=== PATIENT | male | born 1950 | race Caucasian/White ===

== ENCOUNTER 2019-04-24 13:00 | Outpatient (RCR) | payer MEDICARE, MEDICAID, SELFPAY ==
[2019-04-24 14:30] VITALS: BP 141/69; PULSE 60; RESP 20; O2SAT 96
[2019-04-24 15:44] VITALS: BP 141/69; RESP 60; O2SAT 96
== END 2019-07-23 23:59 | disposition home or self-care (01) ==
DX: Z98.61 Coronary angioplasty status (principal); I25.2 Old myocardial infarction
CPT/HCPCS: 93798

== ENCOUNTER 2019-08-11 09:56 | Outpatient (RCR) | payer MEDICARE, MEDICAID, SELFPAY | END 2019-09-29 12:00 | disposition home or self-care (01) | DX: Z95.5 Presence of coronary angioplasty implant and graft (principal) | CPT/HCPCS: 93798 ==

== ENCOUNTER 2020-01-04 13:11 | Outpatient (RCR) | payer MEDICARE, MEDICAID, SELFPAY ==
[2020-01-04 13:30] VITALS: BP 164/87; PULSE 63; RESP 16; O2SAT 98; BMI 36.8
--- NOTE | 2020-04-08 14:00 | PCCPR ---
PT LAST RECORDED REHAB SESSION 03/25/20. PT WAS HAVING PAIN IN LEFT FOOT/TOE, LOW GRADE TEMP, NAUSEA/VOMITING. ENCOURAGED TO CALL PRIMARY MD. PT SAW DR. PARTIDA ON 04/03/20 AND WAS DIRECTED TO WEIGH TANK OPERATOR THE FOLLOWING DAY. ON 04/04/20 PT LEFT MESSAGE THAT HE DID NOT THINK HE WOULD BE ABLE TO FINISH REHAB. ATTEMPTED TO CONTACT PATIENT SEVERAL TIMES. FINALLY, ON 04/08/20, ASSUMING THE PROBABILITY OF HOSPITAL ADMISSION, CONTACTED [facility] TO INQUIRE ABOUT ADMISSION, WAS CONNECTED TO PATIENTS ROOM. SPOKE TO PATIENT, STATES WAS ADMITTED THE DAY HE SAW THE WEIGH TANK OPERATOR FOR GANGRENOUS TOE AND SCHEDULED AMPUTATION THIS Wednesday04/12/20. PT COMPLETED 31 OF 36 SESSIONS.
== END 2020-04-08 15:00 | disposition home or self-care (01) ==
DX: Z98.61 Coronary angioplasty status (principal)
CPT/HCPCS: 93798

== ENCOUNTER 2020-04-27 10:54 | Emergency (ER) | payer MEDICARE, MEDICAID, SELFPAY ==
[2020-04-27] VITALS (32 sets, daily range): BP systolic 106–175; BP diastolic 53–100; PULSE 75–91; RESP 18; TEMP 36.2; O2SAT 93–100
--- NOTE | ~2020-04-27 | CT_ITS ---
EXAMINATION: CT abdomen pelvis wo con DATE: 04/27/2020 12:24 INDICATION: Hematemesis TECHNIQUE: Computed tomography (CT) of the abdomen and pelvis was performed without intravenous contr ast. Automated exposure control and iterative reconstruction technique were employed. The dose-length product was 1152.86 mGy-cm. COMPARISON: None FINDINGS: Lung bases are clear. Heart size is normal. No pericardial or pleural effusion. 3-lead cardiac pacema ker with lead tips at the radiocarpal appendage, near the apex of the right ventricle and in a lu ry vein overlying the lateral wall of the left ventricle having traversed the coronary sinus. 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 Small sliding-type h iatal hernia. Small calcified gallstone in the dependent aspect of the normal-appearing gallbladder. Liver and bila teral adrenal glands are normal. Splenic desiccation consistent with old granulomatous disease. Mild fatty atrophy of the pancreas. 1 cm low-attenuation right renal cyst. 2-3 mm nonobstructing stone at the interpolar region of the left kidney. Additional tiny calcifications at the bilateral renal margie are more likely to represent atherosclerotic calcifications than additional renal stones. No ureteral stones or hydronephrosis. Bladder is normal. A few calcifications in the minimally enlarged prostate . There are few scattered colonic diverticula without adjacent inflammatory change to suggest diverti culitis. Small bowel and appendix are normal. No free intraperitoneal gas or fluid. There is extensiv e calcified atherosclerosis of the aorta and many of the other arteries. No pathologically enlarged a bdominal or pelvic lymphadenopathy. Small sclerotic lesion at the anterior margin of the left greater trochanter with pattern of calcific lesion suggesting an enchondroma with chondroid matrix. Minimal to mild scattered degenerative skeletal changes. IMPRESSION: 1. Small sliding-type hiatal hernia. 2. Cholelithiasis. 3. Nonobstructing 2-3 mm left renal stone. Reviewed, dictated and finalized at location A. [employer]
--- NOTE | 2020-04-27 10:57 | ED.NAVMDI ---
HPI - Nausea/Vomiting/Diarrhea General Chief complaint: Nausea/Vomiting/Diarrhea Stated complaint: ambulance Time Seen by Provider: 04/27/20 10:57 Source: patient and EMS Mode of arrival: EMS Limitations: no limitations History of Present Illness HPI Narrative: Patient states that he began having some mild nausea vomiting 2 days ago. Last night he had continuous vomiting overnight. At 1 point vomiting so hard that he had fecal incontinence. He does not think he saw any black tarry stool. He denies any fever chills. He denies any diarrhea. He thinks he sees blood in his vomit. MD elicited complaint: nausea and vomiting Onset (ago): day(s) (2) Description of vomiting: bilious and blood-streaked Associated nausea: Yes Location of pain: diffuse (Sore from vomiting) Severity: mild Quality: aching Exacerbating factors: eating Relieving factors: none Associated symptoms: weakness and fecal incontinence (once last night during emesis) Related Data Home Medications Medication Instructions Recorded Confirmed amlodipine 10 mg PO DAILY 03/27/19 04/27/20 atorvastatin 80 mg PO DAILY 03/27/19 04/27/20 clonidine HCl 0.3 mg PO DAILY 03/27/19 04/27/20 hydralazine 75 mg PO QID 03/27/19 04/27/20 hydrochlorothiazide 25 mg PO DAILY 03/27/19 04/27/20 insulin aspart U-100 [Novolog See Rx Instructions .ROUTE .COMPLEX 03/27/19 04/27/20 Flexpen U-100 Insulin] insulin glargine [Basaglar KwikPen 30 unit SUBCUT HS 03/27/19 04/27/20 U-100 Insulin] lisinopril 40 mg PO DAILY 03/27/19 04/27/20 magnesium oxide 400 mg PO DAILY 03/27/19 04/27/20 metoprolol tartrate 50 mg PO BID 03/27/19 04/27/20 nitroglycerin 0.4 mg SUBLINGUAL DIRECTED 03/27/19 04/27/20 ticagrelor [Brilinta] 90 mg PO DAILY 03/27/19 04/27/20 empagliflozin [Jardiance] 10 mg PO DAILY 04/27/20 04/27/20 famotidine 20 mg PO BID 04/27/20 04/27/20 gabapentin 300 mg PO BID 04/27/20 04/27/20 hydrocodone-acetaminophen 1 tablet PO PRN PRN 04/27/20 04/27/20 isosorbide mononitrate 30 mg PO DAILY 04/27/20 04/27/20 metoprolol tartrate 100 mg PO BID 04/27/20 04/27/20 Allergies Allergy/AdvReac Type Severity Reaction Status Date / Time amoxicillin [From Augmentin] Allergy Rash Verified 01/05/20 10:58 clavulanic acid Allergy Rash Verified 01/05/20 10:58 [From Augmentin] metformin Allergy Other Verified 01/05/20 10:58 Review of Systems Constitutional: Constitutional: Denies chills, Denies fever(s) and Reports weakness Eyes: Eyes: Reports no additional eye complaints ENT: Reports system reviewed and no additional complaints, except as documented Cardiovascular: Cardiovascular: Reports no additional cardiovascular complaints Respiratory: Respiratory: Reports no additional respiratory complaints Gastrointestinal: Gastrointestinal: Reports as per HPI Genitourinary: Genitourinary: Reports no additional male genitourinary complaints Musculoskeletal: Musculoskeletal: Reports no additional musculoskeletal complaints Neurologic: Reports system reviewed and no additional complaints, except as documented Psychiatric: Psychiatric: Reports no additional psychiatric complaints Hematologic/Lymphatic: Hematologic/Lymphatic: Reports no additional hematologic/lymphatic complaints [facility] Past Medical History Medical History (Updated 04/27/20 @ 13:38 by Kash Willis MD) Aortic valve disease CAD (coronary artery disease) Heart disease Hypertension IDDM (insulin dependent diabetes mellitus) Pacemaker 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
[2020-04-27] MEDS: ONDANSETRON INJ 4 MG/2 ML VIAL IV PUSH (11:16)
[2020-04-27 11:25] LABS: Basophils Absolute Auto 0.04 K/mm3 (0.00-0.10); Basophils Percent Auto 0.3 % (0.0-1.0); Eosinophils Absolute Auto 0.04 K/mm3 (0.02-0.50); Eosinophils Percent Auto 0.3 % (1.0-6.0); Hemoglobin 14.9 g/dL (12.4-15.3); Immature Granulocyte Absolute 0.08 K/mm3 (0.00-0.00); Immature Granulocyte Percent A 0.5 % (0.0-0.0); Immature Platelet Fraction Pct 0.6 % (1.0-7.0); Lymphocytes Absolute Auto 0.72 K/mm3 (1.10-4.50); Lymphocytes Percent Auto 4.8 % (18.0-42.0); Mean Corpuscular HGB Conc 33.9 g/dL (32.0-36.0); Mean Corpuscular Hemoglobin 29.9 pg (27.0-31.0); Mean Corpuscular Volume 88.4 fL (78.0-102.0); Mean Platelet Volume 10.6 fl (8.7-11.0); Monocytes Absolute Auto 0.68 K/mm3 (0.10-0.90); Monocytes Percent Auto 4.5 % (2.0-11.0); Neutrophils Absolute Auto 13.6 K/mm3 (1.7-7.2); Neutrophils Percent Auto 89.6 % (50.0-70.0); Platelet Count Result 571 K/mm3 (150-420); Red Blood Count 4.98 M/mm3 (4.70-6.10); Red Cell Distribution Width 16.8 % (11.6-14.4); White Blood Count 15.1 K/mm3 (4.8-10.8)
[2020-04-27 11:27] LABS: Gastric Negative Control Negative; Gastric Positive Control Positive; Occult Blood Gastric Fluid Positive; pH Gastric Fluid 1 (1-8)
--- NOTE | 2020-04-27 11:52 | PC.NURSE ---
Pt given urinal for urine sample, pt states he is unable to provide at this time. Pt reports nausea is better.
[2020-04-27 12:01] LABS: Alanine Aminotransferase 142 U/L (16-63); Albumin Level 3.2 g/dL (3.4-5.0); Alkaline Phosphatase 185 U/L (46-116); Anion Gap 23 mmol/L (8-16); Aspartate Amino Transferase 59 U/L (15-37); Bilirubin,Total 0.6 mg/dL (0.00-1.00); Blood Urea Nitrogen 55 mg/dL (7-18); Calcium 8.4 mg/dL (8.5-10.1); Carbon Dioxide 18 mmol/L (21-32); Chloride 95 mmol/L (98-108); Estimated CRCL calculation 36 ml/min; Estimated Glomerular Filt Rate 29; Glucose 297 mg/dL (70-99); Lipase 44 U/L (73-393); Osmolality Calculated 308 mOsm/kg (285-295); Potassium 3.9 mmol/L (3.5-5.1); Sodium 136 mmol/L (136-145); Total Protein 7.9 g/dL (6.4-8.2)
[2020-04-27 12:02] LABS: CRP 2.8 mg/dL (0.0-0.9)
[2020-04-27] MEDS: METOCLOPRAMIDE HCL INJ 10 MG/2 ML VIAL IV PUSH (12:43)
[2020-04-27 12:53] LABS: Occult Blood Negative (Negative)
[2020-04-27] MEDS: PANTOPRAZOLE SODIUM IV 40 MG VIAL IV PUSH (13:14)
[2020-04-27 13:27] LABS: Add Urine Microscopic? YES; Appearance Urine Clear (Clear); Bilirubin Urine Negative (Negative); Blood Urine Negative (Negative); Color Urine Yellow (Yellow); Glucose Urine UA 3+ (Negative); Ketones Urine Trace (Negative); Leukocyte Esterase Ur Negative LEU/UL (Negative); Nitrate Urine Negative (Negative); Protein Urine 2+ (Negative); Specific Grav Ur >= 1.030 (1.010-1.020); Urobilinogen Urine 0.2 mg/dL (0.2-1.0)
--- NOTE | 2020-04-27 13:31 | PC.NURSE ---
[facility] contacted for possible transfer per pts request.
[2020-04-27 13:34] LABS: Bacteria Urine 1+ /hpf; Mucus Urine Few /lpf; RBC Urine 0-2 /hpf (0-2); Squamous Epithelial Cell Urine Occasional /hpf (Few); WBC Urine 0-3 /hpf (0-3)
--- NOTE | 2020-04-27 14:24 | PC.NURSE ---
Pt ambulatory to bathroom without assist.
--- NOTE | 2020-04-27 14:26 | PC.NURSE ---
[facility] returned call and states they do not have icu beds available and that they will not be able to accept this pt. edp requesting to speak with hospitalist, awaiting return call.
--- NOTE | 2020-04-27 15:29 | PC.NURSE ---
AWAITING RETURN CALL FROM HOSPITALIST AT [facility].
[2020-04-27] MEDS: SODIUM CHLORIDE 0.9% IV 1,000 ML 100 ML IV CONT (16:11)
--- NOTE | 2020-04-27 17:30 | PC.NURSE ---
CONTINUE TO AWAIT BED ASSIGNMENT AT [facility], PT SITTING ON STRETCHER COMFORTABLY, NO CHANGE IN PT STATUS, NO COMPLAINTS AT THIS TIME.
--- NOTE | 2020-04-27 18:28 | PC.NURSE ---
PT RESTING COMFORTABLY ON STRETCHER, PT MADE AWARE OF BED ASSIGNMENT AT [facility], NO REQUESTS AT THIS TIME. [facility] CONTACTED FOR TRANSFER.
== END 2020-04-27 19:00 | disposition short-term general hospital (02) ==
PROVIDERS: Emergency Provider Emergency Medicine
DX: K27.4 Chronic or unspecified peptic ulcer, site unspecified, with hemorrhage (principal)
CPT/HCPCS: 36415; 74176; 80053; 81001; 82271; 82272; 83690; 83986; 85025; 85055; 86140; 96361; 96374; 96375; 99285; C9113; J2405; J2765; J7030

== ENCOUNTER 2020-07-16 21:30 | Emergency (ER) | payer MEDICARE, MEDICAID, SELFPAY ==
--- NOTE | ~2020-07-16 | CT_ITS ---
EXAMINATION: CTA chest PE protocol DATE: 07/16/2020 23:15 CDT INDICATION: Chest pain, hypoxia and shortness of breath. TECHNIQUE: Computed tomographic angiography (CTA) of the chest was performed with 100 mL Omnipaque-35 0 intravenous contrast. The dose-length product was 1179.16 mGy-cm. Maximum intensity projection 3D-r econstructions of the aorta and other arteries were constructed by the technologist on a separate wor kstation. Automated exposure control and iterative reconstruction technique were employed. COMPARISON: Chest dated 07/16/2020. FINDINGS: Study is technically adequate without evidence for pulmonary embolism. Evaluation of the pe ripheral lower lobe pulmonary arteries limited by motion artifact. There are small pleural effusions. Cardiomegaly. There is atherosclerosis of the aorta and coronary arteries. Status post median sterno petra for CABG. There are patchy groundglass opacities in both lungs most confluent in the lower lobes . No endobronchial lesions. Mild thoracic spondylosis. IMPRESSION: 1. No evidence for pulmonary embolism. 2: Patchy groundglass opacification, most confluent in the lower lobes. Differential diagnosis inclu sav edema and pneumonia. 3: Small pleural effusions. 4: Cardiomegaly. Reviewed, dictated and finalized at location A. IMPRESSION: 1. No evidence for pulmonary embolism. 2: Patchy groundglass opacification, most confluent in the lower lobes. Differ ential diagnosis includes edema and pneumonia. 3: Small pleural effusions. 4: Cardiomegaly.
--- NOTE | ~2020-07-16 | XR_ITS ---
XR chest 1V portable 07/16/2020 22:08 Indication: Acute onset of chest pain and shortness of breath Procedure: AP portable chest Comparison: No prior studies for comparison. Findings: Status post median sternotomy for CABG. Cardiomegaly. Mild interstitial edema. No significa nt pleural effusion or pneumothorax. No acute osseous abnormality. Impression: 1: Cardiomegaly with mild interstitial edema. Reviewed, dictated and finalized at location A. Impression: 1: Cardiomegaly with mild interstitial edema.
--- NOTE | 2020-07-16 21:41 | ECG_ITS ---
Measurements Intervals [place] Rate: 81 P: 121 IA: 244 QRS: -27 QRSD: 154 T: 9 QT: 426 QTc: 497 Interpretive Statements ELECTRONIC ATRIAL PACEMAKER WITH INHIBITION ELECTRONIC VENTRICULAR PACEMAKER BASELINE ARTIFACT- I, II, III, AVR, AVL, AVF, V1-V6 NO FURTHER INTERPRETATION IS POSSIBLE ATYPICAL ECG Electronically Signed On 07-17-2020 7:19:47 CDT by Kenny Lomax D.O.
--- NOTE | 2020-07-16 21:46 | ED.CHESTPAIN ---
HPI - Chest Pain General Chief Complaint: Chest Pain Stated Complaint: AMB Time Seen by Provider: 07/16/20 21:41 Source: patient Mode of arrival: EMS Limitations: no limitations History of Present Illness HPI narrative: 69-year-old man with a history of coronary artery disease status post CABG and stents, hypertension, dyslipidemia and diabetes comes in today by EMS complaining of chest pressure that started approximately 1/2 hour prior to calling 911. He states that shortness of breath started at the same time period was found to have sats in the 60s by EMS which improved to the low 90s with 15 L non-rebreather. He was given 1 sublingual nitro which improved his symptoms somewhat and he took 3 baby aspirin before EMS arrived. Related Data Home Medications Medication Instructions Recorded Confirmed atorvastatin 80 mg PO DAILY 03/27/19 07/16/20 clonidine HCl 0.2 mg PO BID 03/27/19 07/16/20 hydrochlorothiazide 25 mg PO DAILY 03/27/19 07/16/20 insulin aspart U-100 [Novolog See Rx Instructions .ROUTE .COMPLEX 03/27/19 07/16/20 Flexpen U-100 Insulin] insulin glargine [Basaglar KwikPen 30 unit SUBCUT HS 03/27/19 07/16/20 U-100 Insulin] lisinopril 40 mg PO DAILY 03/27/19 07/16/20 nitroglycerin 0.4 mg SUBLINGUAL DIRECTED 03/27/19 07/16/20 ticagrelor [Brilinta] 90 mg PO DAILY 03/27/19 07/16/20 empagliflozin [Jardiance] 10 mg PO DAILY 04/27/20 07/16/20 isosorbide mononitrate 30 mg PO DAILY 04/27/20 07/16/20 metoprolol tartrate 100 mg PO BID 04/27/20 07/16/20 denosumab [Prolia] 60 mg SUBCUT [id number] 07/16/20 07/16/20 Allergies Allergy/AdvReac Type Severity Reaction Status Date / Time amoxicillin [From Augmentin] Allergy Rash Verified 07/16/20 22:28 clavulanic acid Allergy Rash Verified 07/16/20 22:28 [From Augmentin] metformin Allergy Other Verified 07/16/20 22:28 Review of Systems Constitutional: Constitutional: Reports fatigue, Reports fever(s) and Reports weakness Eyes: Eyes: Denies change in vision and Denies photophobia ENT: Denies nasal congestion and Denies sore throat Cardiovascular: Cardiovascular: Reports chest pain and Denies radiating jaw, neck or arm pain Respiratory: Respiratory: Denies cough, Reports dyspnea and Denies wheezing Gastrointestinal: Gastrointestinal: Denies abdominal pain, Denies diarrhea, Denies nausea and Denies vomiting Musculoskeletal: Musculoskeletal: Denies arthralgias and Denies joint swelling Integumentary/Breasts: Skin/Breast: Denies pruritus, Denies erythema and Denies rash Neurologic: Denies vertigo, Denies dizziness and Denies syncope Hematologic/Lymphatic: Hematologic/Lymphatic: Denies easy bleeding and Denies easy bruising Allergic/Immunologic: Allergic/Immunologic: Denies lip swelling and Denies throat swelling PMFSH Past Medical History Medical History Aortic valve disease CAD (coronary artery disease) Heart disease Hypertension IDDM (insulin dependent diabetes mellitus) Pacemaker 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 Surgical History Surgical History H/O left inguinal hernia repair H/O parathyroidectomy History of aortic valve repair History of coronary artery stent placement S/P CABG x 6 Family History Family History Mother Hypertension Father Heart disease Social History Social History Smoking status: Former smoker Tobacco type: pipe Second hand tobacco smoke exposure: Yes (Parents) Substance use: never Gender identity (if verbalized by the patient): Male Exam Const: General: alert and ill appearing acutely Nutritional Appearance: obese Orientation/consciousness: patient oriented x3 Limitations: no limitations Other: Moderate to severe acute distress. Anxiou
[2020-07-16] MEDS: ASPIRIN 81 MG CHEWABLE TABLET PO (21:48)
[2020-07-16] MEDS: MORPHINE SULFATE (*CRX) 2 MG/ML INJ IV PUSH (21:48)
[2020-07-16] MEDS: ONDANSETRON INJ 4 MG/2 ML VIAL IV PUSH (21:49)
[2020-07-16] MEDS: NITROGLYCERIN SL 0.4 MG TABLET SUBLINGUAL (21:50)
[2020-07-16] MEDS: NITROGLYCERIN SL 0.4 MG TABLET (21:55)
[2020-07-16 22:00] LABS: Base Excess ABG -8.1 mmol/L (0-2); Oxygen Content ABG 16.7 %vol (16.0-22.0); Oxygen Saturation ABG 95.4 % (95-97); Oxyhemoglobin 92.6 % (94-100); PCO2 ABG 38.9 mmHg (35-45); PO2 ABG 84.3 mmHg (75-85); Total Hemoglobin 12.8 g/dL; pH ABG 7.28 (7.35-7.45)
[2020-07-16 22:03] LABS: Basophils Absolute Auto 0.09 K/mm3 (0.00-0.10); Basophils Percent Auto 0.7 % (0.0-1.0); Eosinophils Absolute Auto 0.44 K/mm3 (0.02-0.50); Eosinophils Percent Auto 3.3 % (1.0-6.0); Hematocrit 37.9 % (37.0-46.0); Hemoglobin 12.1 g/dL (12.4-15.3); Immature Granulocyte Absolute 0.08 K/mm3 (0.00-0.00); Immature Granulocyte Percent A 0.6 % (0.0-0.0); Lymphocytes Absolute Auto 1.25 K/mm3 (1.10-4.50); Lymphocytes Percent Auto 9.5 % (18.0-42.0); Mean Corpuscular HGB Conc 31.9 g/dL (32.0-36.0); Mean Corpuscular Volume 87.7 fL (78.0-102.0); Mean Platelet Volume 9.2 fl (8.7-11.0); Monocytes Absolute Auto 1.37 K/mm3 (0.10-0.90); Monocytes Percent Auto 10.4 % (2.0-11.0); Neutrophils Absolute Auto 9.9 K/mm3 (1.7-7.2); Neutrophils Percent Auto 75.5 % (50.0-70.0); Platelet Count Result 437 K/mm3 (150-420); Red Blood Count 4.32 M/mm3 (4.70-6.10); Red Cell Distribution Width 17.2 % (11.6-14.4); White Blood Count 13.2 K/mm3 (4.8-10.8)
[2020-07-16 22:05] LABS: Modified Allen's Test Pass; Site Drawn LEFT RADIAL
[2020-07-16 22:06] LABS: Device NON-REBREATHER MASK
--- NOTE | 2020-07-16 22:09 | PC.NURSE ---
2150 b/p 194/81 nitro #1 given pain 11/05 2154 b/p 177/86 nitro #2 given pain 07/06 2199 b/p 177/67 nitro #3 given pain 05/08
[2020-07-16 22:11] VITALS: BP 194/81; PULSE 71; RESP 36; TEMP 37.3; O2SAT 93
[2020-07-16 22:19] VITALS: BP 164/61; PULSE 75; RESP 28; TEMP 37.3; O2SAT 97
[2020-07-16 22:19] LABS: INR 1.1; Partial Thromboplastin Time 24.5 SEC (23.90-30.70); Prothrombin Time 11.3 Seconds (9.50-12.10)
[2020-07-16 22:21] VITALS: O2SAT 97
[2020-07-16 22:22] VITALS: PULSE 75
[2020-07-16 22:24] LABS: Lactic Acid Reflex 2.7 mmol/L (0.4-2.0)
[2020-07-16 22:26] LABS: Alanine Aminotransferase 17 U/L (16-63); Alkaline Phosphatase 104 U/L (46-116); Anion Gap 15 mmol/L (8-16); Aspartate Amino Transferase 16 U/L (15-37); Bilirubin,Total 0.2 mg/dL (0.00-1.00); Blood Urea Nitrogen 37 mg/dL (7-18); Calcium 9.2 mg/dL (8.5-10.1); Carbon Dioxide 21 mmol/L (21-32); Chloride 99 mmol/L (98-108); Estimated CRCL calculation 36 ml/min; Estimated Glomerular Filt Rate 31; Glucose 185 mg/dL (70-99); NT Pro B Type Natriuretic Pept 4509; Osmolality Calculated 293 mOsm/kg (285-295); Potassium 3.8 mmol/L (3.5-5.1); Sodium 135 mmol/L (136-145); Total Protein 7.6 g/dL (6.4-8.2); Troponin I 39.3 ng/L (0.00-60.4)
[2020-07-16 22:28] LABS: D Dimer 2.21 mg/L (0.19-0.50)
[2020-07-16 22:48] VITALS: BP 185/57; PULSE 68; RESP 24; O2SAT 99
[2020-07-16 23:17] LABS: Influenza A QL RT-PCR Negative (Negative); Influenza B QL RT-PCR Negative (Negative); SARS-CoV-2 RNA PCR Negative (Negative)
[2020-07-16 23:27] VITALS: BP 170/61; PULSE 66; RESP 20; O2SAT 98
[2020-07-17] MEDS: FUROSEMIDE INJ 100 MG/10 ML VIAL 80 MG IV PUSH (00:10)
[2020-07-17 01:04] LABS: Reflex Lactic Acid Yes or No Add Lactic
[2020-07-17 01:08] VITALS: BP 186/66; PULSE 67; RESP 20; O2SAT 97
[2020-07-17 01:33] LABS: Troponin I 236.4 ng/L (0.00-60.4)
--- NOTE | 2020-07-18 12:13 | PC.NURSE ---
pt went to [facility] per pt request states his treasury specialist and cardiac surgeon are at [facility]
== END 2020-07-17 01:11 | disposition short-term general hospital (02) ==
PROVIDERS: Emergency Provider Emergency Medicine
DX: R07.9 Chest pain, unspecified (principal); J18.9 Pneumonia, unspecified organism; I50.9 Heart failure, unspecified; N18.9 Chronic kidney disease, unspecified; Z20.822 Contact with and (suspected) exposure to COVID-19; I25.10 Atherosclerotic heart disease of native coronary artery without angina pectoris; I10 Essential (primary) hypertension; E11.9 Type 2 diabetes mellitus without complications; Z87.891 Personal history of nicotine dependence
CPT/HCPCS: 36415; 36600; 71045; 71275; 80053; 82805; 83605; 83880; 84484; 85025; 85380; 85610; 85730; 87040; 87502; 93005; 96365; 96375; 99285; A9270; C9803; J0696; J1940; J2270; J2405; Q9967; U0003; U0005

== ENCOUNTER 2020-08-02 10:57 | Inpatient (IN) | payer MEDICARE, MEDICAID, SELFPAY ==
[2020-08-02] VITALS (7 sets, daily range): BP systolic 124–149; BP diastolic 53–73; PULSE 59–80; RESP 14–20; TEMP 36.2–37.7; O2SAT 92–96; BMI 33.1
--- NOTE | ~2020-08-02 | XR_ITS ---
EXAMINATION: XR chest 2V DATE: 08/02/2020 12:08 INDICATION: Fever TECHNIQUE: PA and lateral views of the chest are obtained. COMPARISON: 07/16/2020 FINDINGS: There is mild atelectasis of the lung bases. There is no pleural effusion or pneumothorax. Cardiomegaly is noted. There are changes of prior cardiac surgery. Surgical clips are noted in the ri ght upper mediastinum. A triple lead cardiac pacemaker of the left chest wall ends with leads in expe cted locations. There is mild thoracic spondylosis. IMPRESSION: 1. Mild atelectasis of the lung bases. Reviewed, dictated and finalized at location A.
--- NOTE | ~2020-08-02 | XR_ITS ---
XR chest 2V 08/04/2020 07:55 Indication: Fever Procedure: 2 view chest Comparison: 09/22/2018 Findings: Status post median sternotomy for CABG. Pacemaker leads are present. There is a prosthetic aortic valve. There is an coronary artery stent. There is bibasilar and bilateral perihilar interstit ial infiltrates. No significant effusion or pneumothorax. Impression: 1: Subtle bilateral perihilar and bibasilar interstitial infiltrates which may represent mild edema o r pneumonia. Reviewed, dictated and finalized at location A. Impression: 1: Subtle bilateral perihilar and bibasilar interstitial infiltrates which may represent mild edema or pneumonia.
[2020-08-02 11:56] LABS: Basophils Absolute Auto 0.04 K/mm3 (0.00-0.10); Basophils Percent Auto 0.7 % (0.0-1.0); Eosinophils Absolute Auto 0.21 K/mm3 (0.02-0.50); Eosinophils Percent Auto 3.6 % (1.0-6.0); Hematocrit 32.2 % (37.0-46.0); Hemoglobin 10.1 g/dL (12.4-15.3); Immature Granulocyte Absolute 0.02 K/mm3 (0.00-0.00); Immature Granulocyte Percent A 0.3 % (0.0-0.0); Lymphocytes Absolute Auto 0.74 K/mm3 (1.10-4.50); Lymphocytes Percent Auto 12.8 % (18.0-42.0); Mean Corpuscular HGB Conc 31.4 g/dL (32.0-36.0); Mean Corpuscular Hemoglobin 26.9 pg (27.0-31.0); Mean Corpuscular Volume 85.9 fL (78.0-102.0); Mean Platelet Volume 8.6 fl (8.7-11.0); Monocytes Absolute Auto 0.67 K/mm3 (0.10-0.90); Monocytes Percent Auto 11.6 % (2.0-11.0); Neutrophils Absolute Auto 4.1 K/mm3 (1.7-7.2); Platelet Count Result 362 K/mm3 (150-420); Red Blood Count 3.75 M/mm3 (4.70-6.10); Red Cell Distribution Width 18.1 % (11.6-14.4); White Blood Count 5.8 K/mm3 (4.8-10.8)
--- NOTE | 2020-08-02 11:59 | ED.SKABFB ---
HPI - Skin/Abscess/Foreign Bdy General Source: patient Mode of arrival: ambulatory Limitations: no limitations History of Present Illness HPI narrative: Johnie is a 69 yr old alert, bright gentleman, with a long history of DM. He has had his 2nd and 3rd toe removed from his right foot. This has a chronic wound there. At the same time that he had his last toe removed in April, he had a vascular bypass done on the right leg to try and improve his blood flow to his right foot. He was recently treated at [facility] for a chest infection and discharged yesterday. He was seen today by the home health nurse and she found he had a temperature of 100. She thought the right foot had what looked like cellulitis on it, and thought he ought to be seen and evaluated because she felt he had a cellulitis. MD complaint: other (cellulitis) Onset (ago): day(s) Location: R foot (cellulitis, and wound) Severity: moderate Severity scale (1-10): 6 Quality: burning Pain Consistency: constant Relieving factors: none Exacerbating factors: none Context: none Associated symptoms: denies other symptoms Related Data Home Medications Medication Instructions Recorded Confirmed atorvastatin 80 mg PO DAILY 03/27/19 08/02/20 clonidine HCl 0.2 mg PO BID 03/27/19 08/02/20 insulin aspart U-100 [Novolog See Rx Instructions .ROUTE .COMPLEX 03/27/19 08/02/20 Flexpen U-100 Insulin] insulin glargine [Basaglar KwikPen 30 unit SUBCUT HS 03/27/19 08/02/20 U-100 Insulin] nitroglycerin 0.4 mg SUBLINGUAL DIRECTED 03/27/19 08/02/20 ticagrelor [Brilinta] 90 mg PO DAILY 03/27/19 08/02/20 empagliflozin [Jardiance] 10 mg PO DAILY 04/27/20 08/02/20 isosorbide mononitrate 30 mg PO DAILY 04/27/20 08/02/20 denosumab [Prolia] 60 mg SUBCUT [id number] 07/16/20 08/02/20 hydralazine 50 mg PO TID 08/02/20 08/02/20 nifedipine 60 mg PO DAILY 08/02/20 08/02/20 Allergies Allergy/AdvReac Type Severity Reaction Status Date / Time amoxicillin [From Augmentin] Allergy Rash Verified 07/16/20 22:28 clavulanic acid Allergy Rash Verified 07/16/20 22:28 [From Augmentin] metformin Allergy Other Verified 07/16/20 22:28 Review of Systems Constitutional: Constitutional: Reports no additional constitutional complaints Eyes: Eyes: Reports no additional eye complaints ENT: Reports system reviewed and no additional complaints, except as documented Cardiovascular: Cardiovascular: Reports no additional cardiovascular complaints Respiratory: Respiratory: Reports no additional respiratory complaints Gastrointestinal: Gastrointestinal: Reports no additional gastrointestinal complaints Genitourinary: Genitourinary: Reports no additional male genitourinary complaints Musculoskeletal: Musculoskeletal: Reports no additional musculoskeletal complaints Integumentary/Breasts: Skin/Breast: Reports system reviewed and no additional complaints, except as docu Neurologic: Reports system reviewed and no additional complaints, except as documented Psychiatric: Psychiatric: Reports no additional psychiatric complaints Endocrine: Endocrine: Reports no additional endocrine complaints Hematologic/Lymphatic: Hematologic/Lymphatic: Reports no additional hematologic/lymphatic complaints Allergic/Immunologic: Allergic/Immunologic: Reports no additional allergic/immunologic complaints PMFSH Past Medical History Medical History Aortic valve disease CAD (coronary artery disease) Heart disease Hypertension IDDM (insulin dependent diabetes mellitus) Pacemaker 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 Surgical History Surgical History H/O left inguinal hernia repair H/O parathyroidectomy History of aortic valve repair History of coronary artery stent placement S/P CABG x 6 Family History Family History Mother Harriet
[2020-08-02 12:08] LABS: Alanine Aminotransferase 19 U/L (16-63); Albumin Level 2.9 g/dL (3.4-5.0); Alkaline Phosphatase 84 U/L (46-116); Anion Gap 11 mmol/L (8-16); Aspartate Amino Transferase < 10 U/L (15-37); Bilirubin,Total 0.3 mg/dL (0.00-1.00); Blood Urea Nitrogen 30 mg/dL (7-18); Calcium 7.8 mg/dL (8.5-10.1); Carbon Dioxide 25 mmol/L (21-32); Chloride 101 mmol/L (98-108); Estimated CRCL calculation 48 ml/min; Estimated Glomerular Filt Rate 44; Glucose 140 mg/dL (70-99); Osmolality Calculated 292 mOsm/kg (285-295); Potassium 3.7 mmol/L (3.5-5.1); Sodium 137 mmol/L (136-145); Total Protein 6.9 g/dL (6.4-8.2)
[2020-08-02 12:13] LABS: Lactic Acid Reflex 1.3 mmol/L (0.4-2.0)
--- NOTE | 2020-08-02 12:35 | PC.NURSE ---
1209 rn spoke with sujata garcia rn. obs room request. room 209 provided. registration notified
--- NOTE | 2020-08-02 13:02 | PHAR ---
DR DONALDSON INITIALLY WANTED PT ON ZOSYN FOR POTENTIAL CELLULITIS, ALONG W/VANC, BUT DUE TO AUGMENTIN ALLERGY WANTS TO CHANGE PT TO ANCEF 1GM Q8H. TLS
--- NOTE | 2020-08-02 13:23 | PM.IMHP ---
H&P: HPI History of Present Illness Date/Time: 08/02/20 13:23 this is a 69-year-old gentleman that was sent to our ED due to a temperature of 100 by his wound care nurse. 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 According to patient yesterday he went to the wound clinic while in transit to the wound clinic he experienced dizziness and was instructed to go to the ED. once he went to the ED patient noted that he was discharged without any diagnosis. his nurse visited him today and reported a temperature of 100 and instructed patient to come to our ED for IV antibiotic treatment. Patient notes that he did not feel any change other than the dizziness that he experienced before visiting his wound care clinic. He also noted that the wound care nurse said that his amputation site was erythematous. Patient WBCs 5.8, hemoglobin 10.1, hematocrit 32.2, platelets 362, sodium 137, potassium 3.7, BUN 30, creatinine 1.57, glucose 140, lactic acid 1.3, chest x-ray Mild atelectasis of the lung bases. Patient being admitted for cellulitis to his right foot. The patient denies SOB, CP, palpitation, extremity numbness, lightheadedness, dizziness, constipation, diarrhea, chills, or fever. Chief Complaint: Febrile Review of Systems Review of Systems: Narrative: A 14 organ system Review of Systems was performed and pertinent positives included in the HPI, otherwise remaining ROS is negative. 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 Surgical History Surgical History H/O left inguinal hernia repair H/O parathyroidectomy History of aortic valve repair History of coronary artery stent placement S/P CABG x 6 Family History Family History (Updated 08/02/20 @ 13:12 by Iman Panchal RN) Mother Hypertension Father Heart disease Mitral valve replaced Sibling Heart disease Sibling Heart disease Sibling Heart disease Sibling Heart disease Social History Social History Smoking status: Former smoker Tobacco type: cigars Second hand tobacco smoke exposure: Yes (Parents) Alcohol intake: former Drinks per week: 30 Substance use: former Substance use type: marijuana Gender identity (if verbalized by the patient): Male Spiritual care concerns: No Meds Home Medications and Allergies Home Medications Medication Instructions Recorded Confirmed Type atorvastatin 80 mg PO DAILY 03/27/19 08/02/20 History clonidine HCl 0.2 mg PO BID 03/27/19 08/02/20 History insulin aspart U-100 [Novolog See Rx Instructions .ROUTE .COMPLEX 03/27/19 08/02/20 History Flexpen U-100 Insulin] insulin glargine [Basaglar KwikPen 30 unit SUBCUT HS 03/27/19 08/02/20 History U-100 Insulin] nitroglycerin 0.4 mg SUBLINGUAL DIRECTED 03/27/19 08/02/20 History ticagrelor [Brilinta] 90 mg PO DAILY 03/27/19 08/02/20 History empagliflozin [Jardiance] 10 mg PO DAILY 04/27/20 08/02/20 History isosorbide mononitrate 30 mg PO DAILY 04/27/20 08/02/20 History denosumab [Prolia] 60 mg SUBCUT [id number] 07/16/20 08/02/20 History hydralazine 50 mg PO TID 08/02/20 08/02/20 History nifedipine 60 mg PO DAILY 08/02/20 08/02/20 History Allergies Allergy/AdvReac Type Severity Reaction Status Date / Time amoxicillin [From Augmentin] Allergy Rash Verified 07/16/20 22:28 clavulanic acid Allergy Rash Verified 07/16/20 22:28 [From Augmentin] metformin Allergy Other Verified 07/16/20 22:28
--- NOTE | 2020-08-02 13:36 | ADMGEN ---
This patient, Jutsin Peguero, was admitted to 2nd Floor Room 209-1. Patient/family oriented to hospital policies and general routines including ID bracelet, bed and alarms, visiting hours, pain management, procedures, bathroom and other care routines, personal items, smoking policy, room service/diet, and visiting hours. Information on how to activate the Rapid Response Team has been discussed. Patient/Family are encouraged to report perceived risks to care and to ask questions if they do not understand what they are told or what they should do.
--- NOTE | 2020-08-02 14:13 | PC.NURSE ---
Pictures taken left foot. 2 black ulcers inner medial foot [id number]. Right outer medial foot black ulcer [id number]. Left 3rd toe black ulcer .5x.5cm. Open wound between great and third toe. Urine taken to lab
[2020-08-02 14:18] LABS: Add Urine Microscopic? YES; Appearance Urine Clear (Clear); Bilirubin Urine Negative (Negative); Blood Urine Negative (Negative); Color Urine Yellow (Yellow); Glucose Urine UA 3+ (Negative); Ketones Urine Negative (Negative); Leukocyte Esterase Ur Negative LEU/UL (Negative); Nitrate Urine Negative (Negative); Protein Urine Trace (Negative); Urobilinogen Urine 0.2 mg/dL (0.2-1.0); pH Urine 5.5 (5.0-8.0)
[2020-08-02 14:21] LABS: Bacteria Urine None seen /hpf; RBC Urine 0-2 /hpf (0-2); Squamous Epithelial Cell Urine Rare /hpf (Few); WBC Urine 0-3 /hpf (0-3)
[2020-08-02] MEDS: COLLAGENASE OINT 30 GM TUBE 1 APPLIC TOPICAL (14:40)
[2020-08-02] MEDS: hydrALAZINE HCL 25 MG TABLET 50 MG PO ×2 (15:01→21:18)
[2020-08-02 17:07] LABS: Glucose Point of Care 127 (65-105)
[2020-08-02] MEDS: ENOXAPARIN 40 MG/0.4 ML SYRINGE SUB-Q (17:38)
[2020-08-02] MEDS: HYDROcodone/acetaminophen (*CRX) 7.5-325 MG TABLET 1 TAB PO (17:44)
[2020-08-02] MEDS: GLUCOSE ORAL GEL 15 GM OF GLUCSE IN 37.5 GM TUBE PO (19:49)
--- NOTE | 2020-08-02 19:50 | PC.NURSE ---
pt feeling feverish, bg of 35, pt is alert, given oral gel, recheck bg at 2005
[2020-08-02 20:13] LABS: Glucose Point of Care 35 (65-105)
[2020-08-02 20:13] LABS: Glucose Point of Care 64 (65-105)
[2020-08-02 20:13] LABS: Glucose Point of Care 40 (65-105)
[2020-08-02] MEDS: TICAGRELOR 90 MG TABLET PO (21:18)
[2020-08-02 21:49] LABS: Glucose Point of Care 147 (65-105)
--- NOTE | 2020-08-02 22:39 | ECG_ITS ---
Measurements Intervals [place] Rate: 73 P: 48 MS: 231 QRS: -12 QRSD: 152 T: -42 QT: 451 QTc: 498 Interpretive Statements ELECTRONIC ATRIAL PACEAMAKER WITH INHIBITION ELECTRONIC VENTRICULAR PACEMAKER FUSION COMPLEX BASELINE ARTIFACT- II, III, AVR, AVL, AVF, V4-V6 NO FURTHER INTERPRETATION IS POSSIBLE ATYPICAL ECG Electronically Signed On 08-03-2020 7:46:29 CDT by Kenny Lomax D.O.
[2020-08-02] MEDS: NITROGLYCERIN SL 0.4 MG TABLET SUBLINGUAL ×2 (22:53→23:01)
--- NOTE | 2020-08-02 23:03 | PC.NURSE ---
Patient c/o chest pain and pressure 9/10. MD was notified. New orders for STAT ECG and to give Nitro after ECG completed. ECG completed and nitro given at 2252 SL. BP was obtained and 145/73. Patient states pain continues and now radiating down right arm. Biomedical Engineer reassessed chest pain/pressure patient states continues. 2nd dose of nitro given at 2302. wind farm support specialist aware and in room applying oxygen at 2L per nasal cannula. Patient A/O x3. No diaphoresis noted.
--- NOTE | 2020-08-02 23:13 | PC.NURSE ---
Tubing Machine Operator reassessed patients chest pain after 2nd nitro given. Patient stated feels pressure but no pain, no further pain radiating down right arm. Patient denies any further nitro at this time. Continuing on O2 at 2L per nasal cannula. personnel research psychologist notified.
[2020-08-03] VITALS (13 sets, daily range): BP systolic 142–177; BP diastolic 55–71; PULSE 73–79; RESP 18–20; TEMP 36.1–38.4; O2SAT 87–95
[2020-08-03 00:53] LABS: Glucose Point of Care 69 (65-105)
[2020-08-03] MEDS: HYDROcodone/acetaminophen (*CRX) 7.5-325 MG TABLET 1 TAB PO ×2 (00:54→08:21)
[2020-08-03] MEDS: hydrALAZINE HCL 25 MG TABLET 50 MG PO ×3 (05:33→21:15)
[2020-08-03] MEDS: ACETAMINOPHEN 325 MG TABLET 650 MG PO ×3 (05:46→22:19)
[2020-08-03 05:53] LABS: Hematocrit 36.6 % (37.0-46.0); Hemoglobin 11.5 g/dL (12.4-15.3); Mean Corpuscular HGB Conc 31.4 g/dL (32.0-36.0); Mean Corpuscular Hemoglobin 27.3 pg (27.0-31.0); Mean Corpuscular Volume 86.9 fL (78.0-102.0); Mean Platelet Volume 9.3 fl (8.7-11.0); Platelet Count Result 429 K/mm3 (150-420); Red Blood Count 4.21 M/mm3 (4.70-6.10); Red Cell Distribution Width 18.3 % (11.6-14.4)
[2020-08-03 06:05] LABS: Alanine Aminotransferase 19 U/L (16-63); Albumin Level 3.1 g/dL (3.4-5.0); Alkaline Phosphatase 94 U/L (46-116); Anion Gap 9 mmol/L (8-16); Aspartate Amino Transferase < 10 U/L (15-37); Bilirubin,Total 0.4 mg/dL (0.00-1.00); Blood Urea Nitrogen 25 mg/dL (7-18); CRP 2.5 mg/dL (0.0-0.9); Calcium 8.3 mg/dL (8.5-10.1); Carbon Dioxide 26 mmol/L (21-32); Chloride 103 mmol/L (98-108); Estimated CRCL calculation 54 ml/min; Estimated Glomerular Filt Rate 50; Glucose 136 mg/dL (70-99); Magnesium 2.2 mg/dL (1.8-2.4); Osmolality Calculated 292 mOsm/kg (285-295); Potassium 3.9 mmol/L (3.5-5.1); Sodium 138 mmol/L (136-145); Total Protein 7.3 g/dL (6.4-8.2)
[2020-08-03 06:13] LABS: Lactic Acid Reflex 0.8 mmol/L (0.4-2.0)
[2020-08-03] MEDS: ISOSORBIDE MONONITRATE 30 MG TAB.ER.24H PO (08:20)
[2020-08-03] MEDS: ATORVASTATIN 40 MG TABLET 80 MG PO (08:20)
[2020-08-03] MEDS: NIFEdipine 30 MG TAB.ER.24 60 MG PO (08:21)
[2020-08-03] MEDS: PANTOPRAZOLE SOD SESQUIHYDRATE 20 MG TAB PO (08:21)
[2020-08-03] MEDS: TICAGRELOR 90 MG TABLET PO ×2 (08:21→21:16)
[2020-08-03 10:07] LABS: Troponin I 42.6 ng/L (0.00-60.4)
[2020-08-03 12:14] LABS: Glucose Point of Care 156 (65-105)
--- NOTE | 2020-08-03 12:54 | P.PN_ITS ---
Progress Note: A&P Assessment and Plan (1) Cellulitis: Code(s): L03.90 - Cellulitis, unspecified <Merrill Ivory JUDDBridget - Last Filed: 08/03/20 13:01> Status: Acute <Merrill Ivory PORTFOLIO STRATEGISTKanaBridget - Last Filed: 08/03/20 13:01> Assessment and Plan: * Patient will remain as inpatient and receive a couple days of IV antibiotics * Patient on Ancef and vancomycin * WBCs within normal limits * Lactic acid within normal limits * Currently patient afebrile <Merrill Ivory CHRISTAL - Last Filed: 08/03/20 13:01> (2) Pacemaker: Code(s): Z95.0 - Presence of cardiac pacemaker <Merrill Ivory PORTFOLIO STRATEGIST-C - Last Filed: 08/03/20 13:01> Status: Acute <Merrill Ivory PORTFOLIO STRATEGISTKanaBridget - Last Filed: 08/03/20 13:01> (3) IDDM (insulin dependent diabetes mellitus): Code(s): E11.9 - Type 2 diabetes mellitus without complications; Z79.4 - FDC (current) use of insulin <Merrill Ivory JUDDBridget - Last Filed: 08/03/20 13:01> Status: Acute <Merrill Ivory PORTFOLIO STRATEGISTKanaBridget - Last Filed: 08/03/20 13:01> Assessment and Plan: * Glucose stable * Continue diet diabetic diet * Continue Accu-Chek with hypoglycemic protocol and sliding scale * Continue home dosing * Will adjust medication as needed <Merrill MichaelCHRISTAL Redd - Last Filed: 08/03/20 13:01> (4) Hypertension: Code(s): I10 - Essential (primary) hypertension <Merrill Ivory PORTFOLIO STRATEGIST-C - Last Filed: 08/03/20 13:01> Status: Acute <Merrill Ivory PORTFOLIO STRATEGISTKanaBridget - Last Filed: 08/03/20 13:01> Assessment and Plan: * Blood pressure 149/62 * Continue clonidine 0.2 mg twice daily, hydralazine 50 mg 3 times daily, isosorbide 30 mg daily, Procardia 60 mg daily, nitro as needed * Vital signs as ordered * Will adjust medication as needed <CHRISTAL Aguero - Last Filed: 08/03/20 13:01> (5) Heart disease: Code(s): I51.9 - Heart disease, unspecified <CHRISTAL Aguero - Last Filed: 08/03/20 13:01> Status: Acute <CHRISTAL Aguero - Last Filed: 08/03/20 13:01> Assessment and Plan: * Hypertension * Continue clonidine 0.2 mg twice daily, hydralazine 50 mg 3 times daily, isosorbide 30 mg daily, Procardia 60 mg daily, nitro as needed * Vital signs as ordered * Continue Brilinta 90 mg daily * bovie heart valve in place <CHRISTAL Aguero - Last Filed: 08/03/20 13:01> (6) CAD (coronary artery disease): Code(s): I25.10 - Atherosclerotic heart disease of [place] coronary artery without angina pectoris <CHRISTAL Aguero - Last Filed: 08/03/20 13:01> Status: Acute <CHRISTAL Aguero - Last Filed: 08/03/20 13:01> Assessment and Plan: * Continue atorvastatin ,Brilinta 90 mg daily * <CHRISTAL Aguero - Last Filed: 08/03/20 13:01> (7) Peptic ulcer hemorrhage: Code(s): K27.4 - Chronic or unspecified peptic ulcer, site unspecified, with hemorrhage <CHRISTAL Aguero - Last Filed: 08/03/20 13:01> Status: Acute <CHRISTAL Aguero - Last Filed: 08/03/20 13:01> Assessment and Plan: * Stable * Started pantoprazole <CHRISTAL Aguero - Last Filed: 08/03/20 13:01> (8) Wound cellulitis after surgery: Code(s): T81.49XA - Infection following a procedure, other surgical site, initial encounter <CHRISTAL Aguero - Last Filed: 08/03/20 13:01> Status: Acute <CHRISTAL Aguero - Last Filed: 08/03/20 13:01> Assessment and Plan: * Patient had right toes amputated due to gangr
--- NOTE | 2020-08-03 12:54 | WPDPN ---
Progress Note: A&P Assessment and Plan (1) Cellulitis: Code(s): L03.90 - Cellulitis, unspecified <Merrill IvoryCHRISTAL - Last Filed: 08/03/20 13:01> Status: Acute <Merrill IvoryCHRISTAL - Last Filed: 08/03/20 13:01> Assessment and Plan: Patient will remain as inpatient and receive a couple days of IV antibiotics Patient on Ancef and vancomycin WBCs within normal limits Lactic acid within normal limits Currently patient afebrile <Merrill Ivory PATHOLOGY TRANSCRIPTIONIST-C - Last Filed: 08/03/20 13:01> (2) Pacemaker: Code(s): Z95.0 - Presence of cardiac pacemaker <Merrill MichaelCHRISTAL Redd - Last Filed: 08/03/20 13:01> Status: Acute <Merrill Wells CHRISTAL Ivory - Last Filed: 08/03/20 13:01> (3) IDDM (insulin dependent diabetes mellitus): Code(s): E11.9 - Type 2 diabetes mellitus without complications; Z79.4 - outside sales advertising executive (current) use of insulin <Merrill MichaelCHRISTAL Redd - Last Filed: 08/03/20 13:01> Status: Acute <Merrill IvorySAVANNAHKanaBridget - Last Filed: 08/03/20 13:01> Assessment and Plan: Glucose stable Continue diet diabetic diet Continue Accu-Chek with hypoglycemic protocol and sliding scale Continue home dosing Will adjust medication as needed <PabloCHRISTAL Weinberg - Last Filed: 08/03/20 13:01> (4) Hypertension: Code(s): I10 - Essential (primary) hypertension <Pabloglenda AlecCHRISTAL Redd - Last Filed: 08/03/20 13:01> Status: Acute <Merrill MichaelCHRISTAL Redd - Last Filed: 08/03/20 13:01> Assessment and Plan: Blood pressure 149/62 Continue clonidine 0.2 mg twice daily, hydralazine 50 mg 3 times daily, isosorbide 30 mg daily, Procardia 60 mg daily, nitro as needed Vital signs as ordered Will adjust medication as needed <CHRISTAL Aguero - Last Filed: 08/03/20 13:01> (5) Heart disease: Code(s): I51.9 - Heart disease, unspecified <CHRISTAL Aguero - Last Filed: 08/03/20 13:01> Status: Acute <CHRISTAL Aguero - Last Filed: 08/03/20 13:01> Assessment and Plan: Hypertension Continue clonidine 0.2 mg twice daily, hydralazine 50 mg 3 times daily, isosorbide 30 mg daily, Procardia 60 mg daily, nitro as needed Vital signs as ordered Continue Brilinta 90 mg daily bovie heart valve in place <CHRISTAL Aguero - Last Filed: 08/03/20 13:01> (6) CAD (coronary artery disease): Code(s): I25.10 - Atherosclerotic heart disease of [place] coronary artery without angina pectoris <CHRISTAL Aguero - Last Filed: 08/03/20 13:01> Status: Acute <CHRISTAL Aguero - Last Filed: 08/03/20 13:01> Assessment and Plan: Continue atorvastatin ,Brilinta 90 mg daily <CHRISTAL Aguero - Last Filed: 08/03/20 13:01> (7) Peptic ulcer hemorrhage: Code(s): K27.4 - Chronic or unspecified peptic ulcer, site unspecified, with hemorrhage <CHRISTAL Aguero - Last Filed: 08/03/20 13:01> Status: Acute <CHRISTAL Aguero - Last Filed: 08/03/20 13:01> Assessment and Plan: Stable Started pantoprazole <CHRISTAL Aguero - Last Filed: 08/03/20 13:01> (8) Wound cellulitis after surgery: Code(s): T81.49XA - Infection following a procedure, other surgical site, initial encounter <CHRISTAL Aguero - Last Filed: 08/03/20 13:01> Status: Acute <CHRISTAL Aguero - Last Filed: 08/03/20 13:01> Assessment and Plan: 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
[2020-08-03] MEDS: COLLAGENASE OINT 30 GM TUBE 1 APPLIC TOPICAL (14:58)
[2020-08-03 16:31] LABS: Glucose Point of Care 139 (65-105)
[2020-08-03] MEDS: ENOXAPARIN 40 MG/0.4 ML SYRINGE SUB-Q (17:30)
[2020-08-03] MEDS: LORazepam INJ (*CRX) 2 MG/ML VIAL 0.5 MG IV PUSH (17:45)
--- NOTE | 2020-08-03 17:45 | PC.NURSE ---
Patient states his chest feels tight. Denies need for nitroglycerin. Vital signs obtained, remain stable. Patient placed back on 02@2l per nc. 02 sat 87% on room air. Patient 95% on 02@2l per nc. Patient given prn ativan for anxiety.
[2020-08-03 17:56] LABS: Glucose Point of Care 169 (65-105)
[2020-08-03] MEDS: cloNIDine HCL 0.2 MG TABLET PO (21:15)
[2020-08-03 21:33] LABS: Glucose Point of Care 143 (65-105)
[2020-08-04] VITALS (12 sets, daily range): BP systolic 124–152; BP diastolic 55–68; PULSE 65–90; RESP 18–24; TEMP 37.4–38.4; O2SAT 92–96
--- NOTE | 2020-08-04 00:06 | PC.NURSE ---
Dr. Willis notified of pt's temp of 100.6; No new orders at this time.
[2020-08-04] MEDS: LORazepam INJ (*CRX) 2 MG/ML VIAL 0.5 MG IV PUSH ×2 (01:28→21:55)
[2020-08-04] MEDS: ACETAMINOPHEN 325 MG TABLET 650 MG PO ×2 (05:03→20:06)
[2020-08-04] MEDS: hydrALAZINE HCL 25 MG TABLET 50 MG PO ×3 (05:04→21:38)
[2020-08-04 07:40] LABS: Glucose Point of Care 170 (65-105)
--- NOTE | 2020-08-04 07:45 | PC.NURSE ---
Patient taken down for chest xray via wheelchair by [employer].
[2020-08-04 08:01] LABS: Hematocrit 32.3 % (37.0-46.0); Hemoglobin 10.2 g/dL (12.4-15.3); Mean Corpuscular HGB Conc 31.6 g/dL (32.0-36.0); Mean Corpuscular Hemoglobin 27.6 pg (27.0-31.0); Mean Corpuscular Volume 87.5 fL (78.0-102.0); Platelet Count Result 316 K/mm3 (150-420); Red Blood Count 3.69 M/mm3 (4.70-6.10); Red Cell Distribution Width 18.4 % (11.6-14.4); White Blood Count 7.7 K/mm3 (4.8-10.8)
[2020-08-04 08:12] LABS: Alanine Aminotransferase 16 U/L (16-63); Albumin Level 2.7 g/dL (3.4-5.0); Alkaline Phosphatase 86 U/L (46-116); Anion Gap 10 mmol/L (8-16); Aspartate Amino Transferase < 10 U/L (15-37); Bilirubin,Total 0.4 mg/dL (0.00-1.00); Blood Urea Nitrogen 21 mg/dL (7-18); Calcium 8.1 mg/dL (8.5-10.1); Carbon Dioxide 25 mmol/L (21-32); Chloride 103 mmol/L (98-108); Estimated CRCL calculation 61 ml/min; Estimated Glomerular Filt Rate 58; Glucose 164 mg/dL (70-99); Osmolality Calculated 293 mOsm/kg (285-295); Sodium 138 mmol/L (136-145); Total Protein 6.8 g/dL (6.4-8.2)
[2020-08-04 08:13] LABS: CRP 7.7 mg/dL (0.0-0.9)
[2020-08-04 08:14] LABS: Add Urine Microscopic? YES; Appearance Urine Clear (Clear); Bilirubin Urine Negative (Negative); Blood Urine Negative (Negative); Color Urine Yellow (Yellow); Glucose Urine UA 3+ (Negative); Ketones Urine 1+ (Negative); Leukocyte Esterase Ur Negative LEU/UL (Negative); Nitrate Urine Negative (Negative); Protein Urine 3+ (Negative); Specific Grav Ur 1.025 (1.010-1.020); Urobilinogen Urine 0.2 mg/dL (0.2-1.0)
[2020-08-04 08:21] LABS: Lactic Acid Reflex 0.9 mmol/L (0.4-2.0)
[2020-08-04 08:37] LABS: Bacteria Urine Trace /hpf; RBC Urine 0-2 /hpf (0-2); Squamous Epithelial Cell Urine Rare /hpf (Few); WBC Urine None seen /hpf (0-3)
[2020-08-04] MEDS: TICAGRELOR 90 MG TABLET PO ×2 (08:53→20:06)
[2020-08-04] MEDS: ATORVASTATIN 40 MG TABLET 80 MG PO (08:54)
[2020-08-04] MEDS: NIFEdipine 30 MG TAB.ER.24 60 MG PO (08:54)
[2020-08-04] MEDS: PANTOPRAZOLE SOD SESQUIHYDRATE 20 MG TAB PO (08:54)
[2020-08-04] MEDS: ISOSORBIDE MONONITRATE 30 MG TAB.ER.24H PO (08:55)
[2020-08-04] MEDS: cloNIDine HCL 0.2 MG TABLET PO ×2 (08:55→20:06)
[2020-08-04] MEDS: COLLAGENASE OINT 30 GM TUBE 1 APPLIC TOPICAL (09:30)
--- NOTE | 2020-08-04 09:44 | P.PN_ITS ---
Progress Note: A&P Assessment and Plan (1) Cellulitis: Code(s): L03.90 - Cellulitis, unspecified <Merrill Ivory CORPORATE TRAVEL COUNSELORKanaBridget - Last Filed: 08/04/20 13:15> Status: Acute <Merrill Ivory CORPORATE TRAVEL COUNSELORKanaBridget - Last Filed: 08/04/20 13:15> Assessment and Plan: * Patient will remain as inpatient and receive a couple days of IV antibiotics * Patient on Ancef and vancomycin changed to Levaquin and vancomycin to cover pneumonia as well as cellulitis * WBCs within normal limits * Lactic acid within normal limits * Patient febrile with the highest temperature being 101.1 <Merrill Ivory CORPORATE TRAVEL COUNSELORKanaBridget - Last Filed: 08/04/20 13:15> (2) Pacemaker: Code(s): Z95.0 - Presence of cardiac pacemaker <Merrill IvoryCHRISTAL - Last Filed: 08/04/20 13:15> Status: Acute <Merrill IvoryCHRISTAL - Last Filed: 08/04/20 13:15> (3) IDDM (insulin dependent diabetes mellitus): Code(s): E11.9 - Type 2 diabetes mellitus without complications; Z79.4 - terminal gauger (current) use of insulin <Merrill Ivory CORPORATE TRAVEL COUNSELORKanaBridget - Last Filed: 08/04/20 13:15> Status: Acute <Merrill Ivory CORPORATE TRAVEL COUNSELORKanaBridget - Last Filed: 08/04/20 13:15> Assessment and Plan: * Glucose stable * Continue diet diabetic diet * Continue Accu-Chek with hypoglycemic protocol and sliding scale * Continue home dosing * Will adjust medication as needed <Merrill Ivory CORPORATE TRAVEL COUNSELORKanaBridget - Last Filed: 08/04/20 13:15> (4) Hypertension: Code(s): I10 - Essential (primary) hypertension <Merrill Ivory CORPORATE TRAVEL COUNSELOR-C - Last Filed: 08/04/20 13:15> Status: Acute <Merrill Ivory CORPORATE TRAVEL COUNSELORKanaBridget - Last Filed: 08/04/20 13:15> Assessment and Plan: * Blood pressure stable * Continue clonidine 0.2 mg twice daily, hydralazine 50 mg 3 times daily, isosorbide 30 mg daily, Procardia 60 mg daily, nitro as needed * Vital signs as ordered * Will adjust medication as needed <JUDD AgueroC - Last Filed: 08/04/20 13:15> (5) Heart disease: Code(s): I51.9 - Heart disease, unspecified <JUDD AgueroC - Last Filed: 08/04/20 13:15> Status: Acute <Merrill AlecCHRISTAL Redd - Last Filed: 08/04/20 13:15> Assessment and Plan: * Continue clonidine 0.2 mg twice daily, hydralazine 50 mg 3 times daily, isos orbide 30 mg daily, Procardia 60 mg daily, nitro as needed * Vital signs as ordered * Continue Brilinta 90 mg daily * bovie heart valve in place * Patient with history of stable angina * BNP elevated Echo pending to rule out congestive heart failure <JUDD AgueroC - Last Filed: 08/04/20 13:15> (6) CAD (coronary artery disease): Code(s): I25.10 - Atherosclerotic heart disease of [place] coronary artery without angina pectoris <JUDD AgueroC - Last Filed: 08/04/20 13:15> Status: Acute <CHRISTAL Aguero - Last Filed: 08/04/20 13:15> Assessment and Plan: * Continue atorvastatin ,Brilinta 90 mg daily * <JUDD AgueroC - Last Filed: 08/04/20 13:15> (7) Peptic ulcer hemorrhage: Code(s): K27.4 - Chronic or unspecified peptic ulcer, site unspecified, with hemorrhage <JUDD AgueroC - Last Filed: 08/04/20 13:15> Status: Acute <CHRISTAL Aguero - Last Filed: 08/04/20 13:15> Assessment and Plan: * Stable * Started pantoprazole <JUDD AgueroC - Last Filed: 08/04/20 13:15> (8) Wound cellulitis after surgery: Code(s): T81.49XA - Infection following a procedure, other surgical site, initial encounter <GREG AgueroP-C
--- NOTE | 2020-08-04 09:44 | WPDPN ---
Progress Note: A&P Assessment and Plan (1) Cellulitis: Code(s): L03.90 - Cellulitis, unspecified <Merrill Ivory DRY KILN FEEDERKanaBridget - Last Filed: 08/04/20 13:15> Status: Acute <Merrill Ivory DRY KILN FEEDERKanaBridget - Last Filed: 08/04/20 13:15> Assessment and Plan: Patient will remain as inpatient and receive a couple days of IV antibiotics Patient on Ancef and vancomycin changed to Levaquin and vancomycin to cover pneumonia as well as cellulitis WBCs within normal limits Lactic acid within normal limits Patient febrile with the highest temperature being 101.1 <Merrill Ivory DRY KILN FEEDERKanaBridget - Last Filed: 08/04/20 13:15> (2) Pacemaker: Code(s): Z95.0 - Presence of cardiac pacemaker <Merrill Ivory DRY KILN FEEDERKanaBridget - Last Filed: 08/04/20 13:15> Status: Acute <Merrill IvorySAVANNAHKanaBridget - Last Filed: 08/04/20 13:15> (3) IDDM (insulin dependent diabetes mellitus): Code(s): E11.9 - Type 2 diabetes mellitus without complications; Z79.4 - ocean transportation intermediary (current) use of insulin <Merrill Ivory DRY KILN FEEDERKanaBridget - Last Filed: 08/04/20 13:15> Status: Acute <Merrill Ivory DRY KILN FEEDERKanaBridget - Last Filed: 08/04/20 13:15> Assessment and Plan: Glucose stable Continue diet diabetic diet Continue Accu-Chek with hypoglycemic protocol and sliding scale Continue home dosing Will adjust medication as needed <Merrill MichaelRebecca CachorroCHRISTAL - Last Filed: 08/04/20 13:15> (4) Hypertension: Code(s): I10 - Essential (primary) hypertension <Merrill IvoryCHRISTAL - Last Filed: 08/04/20 13:15> Status: Acute <Merrill Ivory DRY KILN FEEDERKanaBridget - Last Filed: 08/04/20 13:15> Assessment and Plan: Blood pressure stable Continue clonidine 0.2 mg twice daily, hydralazine 50 mg 3 times daily, isosorbide 30 mg daily, Procardia 60 mg daily, nitro as needed Vital signs as ordered Will adjust medication as needed <PabloCHRISTAL Weinberg - Last Filed: 08/04/20 13:15> (5) Heart disease: Code(s): I51.9 - Heart disease, unspecified <Pabloglenda AlecCHRISTAL Redd - Last Filed: 08/04/20 13:15> Status: Acute <Pabloglenda AlecSAVANNAH ReddKanaBridget - Last Filed: 08/04/20 13:15> Assessment and Plan: Continue clonidine 0.2 mg twice daily, hydralazine 50 mg 3 times daily, isosorbide 30 mg daily, Procardia 60 mg daily, nitro as needed Vital signs as ordered Continue Brilinta 90 mg daily bovie heart valve in place Patient with history of stable angina BNP elevated Echo pending to rule out congestive heart failure <PabloSAVANNAH WeinbergKanaBridget - Last Filed: 08/04/20 13:15> (6) CAD (coronary artery disease): Code(s): I25.10 - Atherosclerotic heart disease of [place] coronary artery without angina pectoris <CHRISTAL Aguero - Last Filed: 08/04/20 13:15> Status: Acute <Pabloglenda AlecSAVANNAH ReddKanaBridget - Last Filed: 08/04/20 13:15> Assessment and Plan: Continue atorvastatin ,Brilinta 90 mg daily <Pabloglenda AlecSAVANNAH ReddKana - Last Filed: 08/04/20 13:15> (7) Peptic ulcer hemorrhage: Code(s): K27.4 - Chronic or unspecified peptic ulcer, site unspecified, with hemorrhage <CHRISTAL Aguero - Last Filed: 08/04/20 13:15> Status: Acute <PabloSAVANNAH WeinbergKanaBridget - Last Filed: 08/04/20 13:15> Assessment and Plan: Stable Started pantoprazole <SAVANNAH AgueroKanaBridget - Last Filed: 08/04/20 13:15> (8) Wound cellulitis after surgery: Code(s): T81.49XA - Infection following a procedure, other surgical site, initial encounter <CHRISTAL Aguero - Last Filed: 08/04/20 13:15> Status: Acute <SAVANNAH Aguero-C - Last Filed: 08/04/20 13:15> Assessment and Plan: 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
[2020-08-04 10:06] LABS: NT Pro B Type Natriuretic Pept 7473 pg/mL (0-125)
[2020-08-04] MEDS: HYDROcodone/acetaminophen (*CRX) 7.5-325 MG TABLET 1 TAB PO (10:52)
[2020-08-04 11:39] LABS: Glucose Point of Care 225 (65-105)
[2020-08-04] MEDS: ENOXAPARIN 40 MG/0.4 ML SYRINGE SUB-Q (17:25)
[2020-08-04 17:36] LABS: Glucose Point of Care 185 (65-105)
--- NOTE | 2020-08-04 20:05 | PC.NURSE ---
Patient's temperature 101.2 with PRN Tylenol given. Patient says he can't get comfortable. Denies SOB, pain, nausea, says he shouldn't have eaten so much for supper because he doesn't usually eat that much, only eats 2 meals a day @ home. Charge nurse aware and notified Dr Day with new orders received. O2 on @ 2 lpm/nc. No distress noted. Call light in reach.
[2020-08-04 20:11] LABS: Glucose Point of Care 159 (65-105)
[2020-08-04] MEDS: INSULIN GLARGINE (*BKC) 100 UNITS/ML 30 UNITS SUB-Q (21:39)
--- NOTE | 2020-08-04 21:55 | PC.NURSE ---
Patient restless, anxious and says he shouldn't have eaten supper because now he's miserable and can't move his bowels (moved x2 on 08/03/20 per patient). Offered patient Ativan and pain medicine and he said he'll take the Ativan but doesn't want anything for pain because he just ate too much, that it isn't really pain. PRN Ativan given and patient assisted to chair with unsteady gait. Call light in reach.
[2020-08-04] MEDS: traMADol HCL (*CRX) 50 MG TABLET PO (22:02)
--- NOTE | 2020-08-04 22:02 | PC.NURSE ---
Patient told nurse he'll go ahead and take the pain medicine to see if it'll help his belly. PRN Tramadol given. Call light in reach.
--- NOTE | 2020-08-04 22:10 | PC.NURSE ---
Patient now complaining of tightness in his chest rated @ 5-6 on 0-[address] Reece notified of patient's change in status. said to give patient Nitroglycerin and have him drink a soda to help him belch.
[2020-08-04] MEDS: NITROGLYCERIN SL 0.4 MG TABLET SUBLINGUAL ×3 (22:16→22:27)
--- NOTE | 2020-08-04 22:16 | PC.NURSE ---
Patient sitting in chair, says the tightness in chest is still 5-6. Patient still anxious and is talking non-stop. Nitro #1 given SL.
--- NOTE | 2020-08-04 22:22 | PC.NURSE ---
Addendum entered by Marsha Oglesby RN 08/04/20 23:22: Nitro #2 given Original Note: Patient less anxious and reports tightness in chest now @ 2-3. Patient still very talkative. Patient says he's starting to feel better.
--- NOTE | 2020-08-04 22:27 | PC.NURSE ---
Patient continues to rate chest tightness @ 2-3. Patient in no distress and talking a lot. Nitro #3 given.
--- NOTE | 2020-08-04 22:32 | PC.NURSE ---
Patient says chest tightness is almost gone and rates it @ 1-2. Patient calmer and less anxious. No distress noted. Patient asked for lights to be turned down but not off and he wants to stay in recliner for now.
--- NOTE | 2020-08-04 22:40 | PC.NURSE ---
Dr Reece updated on patient feeling better. No new orders received.
--- NOTE | 2020-08-04 22:43 | PC.NURSE ---
Dr Reece says he is reviewing patient's chart and will be up to see him.
--- NOTE | 2020-08-04 22:55 | PC.NURSE ---
Patient resting in chair. Denies pain/complaints/tightness in chest. No distress noted. Call light in reach.
[2020-08-04 23:49] LABS: Influenza A QL RT-PCR Negative (Negative); Influenza B QL RT-PCR Negative (Negative); SARS-CoV-2 RNA PCR Negative (Negative)
[2020-08-05] VITALS: BP 135/42; PULSE 76; RESP 20; TEMP 38.2; O2SAT 97
--- NOTE | 2020-08-05 | PC.NURSE ---
Patient denies pain/complaints/tightness to chest, saying he's resting well. No distress noted. Call light in reach.
[2020-08-05 00:16] VITALS: TEMP 37.8
--- NOTE | 2020-08-05 01:00 | PC.NURSE ---
Dr Reece spoke to patient about transferring to [facility]. Patient has agreed to go. Dr Reece will call [place] and let nurse know when arrangements are made.
--- NOTE | 2020-08-05 01:20 | PC.NURSE ---
Dr. Reece here to see patient.
--- NOTE | 2020-08-05 02:00 | PC.NURSE ---
Dr Reece notified nurse that arrangements have been made with [facility] and patient will be transferred
--- NOTE | 2020-08-05 02:00 | PC.NURSE ---
Kendal, from [facility], called to give pt's room assignment.
--- NOTE | 2020-08-05 02:07 | PM.DS ---
DS: Admitting Diagnosis Admitting Diagnosis Admitting Diagnosis: cellulitis right foot wound DS: Discharge Diagnosis Discharge Diagnosis (1) Cellulitis and abscess of foot: Code(s): L03.119 - Cellulitis of unspecified part of limb; L02.619 - Cutaneous abscess of unspecified foot Status: Acute (2) Fever, unknown origin: Code(s): R50.9 - Fever, unspecified Status: Acute DS: Summary Hospital Course Reason for hospitalization: Mr Peguero is a pleasant gentleman who was sent to the hospital by his home health nurse, who had been doing his dressing changes on his chronic right foot wound. She felt he had a cellulitis of that chronic wound, and the toe next to the wound, since he had a fever of 101.5 on 08/02/2020 when she saw him, and a foot with the appearance of cellulitis. Hospital Course: Mr Peguero has a history of an aortic valve replacement. His chronic foot wound had an inflamed area around it, about an inch all the way around the cavity, that appeared to have a cellulitis. He also had obvious cellulitis in his remaining forth toe, the toe next to the wound. It was felt at the time, the cellulitis likely represented the cause of his fever. He had blood cultures done, a urinalysis, and he was started on Vancomycin, and Ancef. He was given vancomycin 1 gram in ER, and the dosed by pharmacy with 1500mg/day. He was started on Ancef 1gm every 8 hours. Since he has been here, for the last two days, he has almost continually had a fever in the range of 38.4 and a little above that. The nurses have dosed him with tylenol repeatedly. On 08/04/2020 the nurse practitioner stopped the ancef and started Levaquin 750mg/day. She had done a repeat CXR and noted the perihilar densities. Being concerned about a pneumonia, she started the Levaquin. It is now clear this gentleman has a fever of unclear etiology. I believe he would benefit from ID consult. Discussed with Dr Lemus, who has agreed to accept the patient. We will transfer him as soon as possible. Status at Discharge Cognitive/behavioral status at discharge: Alert, and oriented. He agrees with thought that ID may be of help. Functional status at discharge: independent ambulation Overall status at discharge: patient is not back to baseline Time Spent with Patient Time attestation: Total time spent providing and/or coordinating discharge services: Time spent: Greater than 30 minutes (45 minutes) Specific discharge activities: As tolerated Exam Const: General: no acute distress Limitations: no limitations HENMT: Other: mouth and pharynx within normal limits Eyes: Sclera: sclerae normal Neck: Neck: supple Resp: Effort & Inspection: normal respiratory effort Auscultation: clear to auscultation bilaterally Cardio: Rate: regular rate Rhythm: regular rhythm GI: GI Palp: Yes Soft to palpation (nontender) Auscultation: normal bowel sounds Skin: General skin exam: normal color Neuro: Other: Without focal deficit. Extrem: General: normal to inspection Other: Wound to right foot appears much improved from presentation at admission. The cellulitis appears to be mostly resolved. Wound with some minimal yellow material in base. But cellulitis has largely resolved. Psych: Appearance: grossly normal Mental Status: mental status grossly normal Speech and movement: Normal speech and movement present Thought content: Yes Normal thought content present DS: Data Data Completed and Pending Labs on day of discharge: Labs from last 24 hours 08/04/20 08/04/20 08/04/20 23:00 23:00 20:04 WBC RBC Hgb Hct MCV MCH MCHC RDW Plt Count MPV Sodium Potassium Chloride Carbon Dioxide Anion Gap BUN Creatinine Estim Creat Clear Calc Estimated GFR Glucose POC Capillary Glucose 159 Calculated Osmolality Lactic Acid Calcium Total Bilirubin AST ALT
[2020-08-05 02:20] VITALS: BP 157/66; PULSE 78; RESP 22; TEMP 37.9; O2SAT 93
--- NOTE | 2020-08-05 02:25 | PC.NURSE ---
Addendum entered by Marsha Oglesby RN 08/05/20 02:55: Phone number for Jeanette [phone] Original Note: Report called to Jeanette, the receiving nurse @ [facility].
--- NOTE | 2020-08-05 02:40 | PC.NURSE ---
[facility] ambulance called to transfer pt to [facility].
--- NOTE | 2020-08-05 03:00 | PC.NURSE ---
Patient's belongings packed up into belongings bag and patient's personal bag. Per patient's request his cell phone was put into the left front pocket of his blue jekwan in the black bag.
--- NOTE | 2020-08-05 03:05 | PC.NURSE ---
Patient being transported to [facility] per [facility]. Patient alert and oriented and denies pain/complaints @ this time.
== END 2020-08-05 03:05 | disposition short-term general hospital (02) | DRG 566 ==
LOC: CHSED 11:01 → CHS2ND 12:37
PROVIDERS: Nurse Practitioner; Admitting Provider Emergency Medicine; Emergency Provider Emergency Medicine; Visit Provider Emergency Medicine
DX: T87.43 Infection of amputation stump, right lower extremity (principal); L03.031 Cellulitis of right toe; E11.621 Type 2 diabetes mellitus with foot ulcer; L97.509 Non-pressure chronic ulcer of other part of unspecified foot with unspecified severity; I12.9 Hypertensive chronic kidney disease with stage 1 through stage 4 chronic kidney disease, or unspecified chronic kidney disease; E11.22 Type 2 diabetes mellitus with diabetic chronic kidney disease; N18.9 Chronic kidney disease, unspecified; I25.10 Atherosclerotic heart disease of native coronary artery without angina pectoris; K27.7 Chronic peptic ulcer, site unspecified, without hemorrhage or perforation; I35.8 Other nonrheumatic aortic valve disorders; R79.89 Other specified abnormal findings of blood chemistry; Z95.0 Presence of cardiac pacemaker; Z79.4 Long term (current) use of insulin; Z89.029 Acquired absence of unspecified finger(s); Z89.421 Acquired absence of other right toe(s)
CPT/HCPCS: 36415; 71046; 80053; 81001; 82948; 83605; 83735; 83880; 84484; 85025; 85027; 86140; 87040; 87502; 93005; 96365; 96366; 96367; 96372; 96375; 99285; A9270; C9803; G0378; J0690; J1650; J1815; J1956; J2060; J3370; U0003; U0005

== ENCOUNTER 2020-08-05 05:16 | Inpatient (IN) | payer MEDICARE, MEDICAID, SELFPAY ==
[2020-08-05] VITALS (21 sets, daily range): BP systolic 111–179; BP diastolic 43–122; PULSE 60–106; RESP 18–43; TEMP 36.1–37.1; O2SAT 82–100; BMI 33.0
--- NOTE | 2020-08-05 | ECHO_ITS ---
Patient Info Name: Justin Peguero Age: 69 years : 1950 Gender: Male Ht: 70 in Wt: 230 lbs BSA: 2.30 m2 HR: 98 bpm BP: 73 / 74 mmHg Heart Rhythm: Paced Technical Quality: Good Exam Date: 08/05/2020 4:08 PM Exam Location: [facility] Pulmonary Exam Room: [facility] Patient Status: Inpatient Admit Date: 08/05/2020 Staff Ordering Physician: Saturnino Lemus MD Director Of Officiating: Latasha Stahl RDCS Attending Provider: Saturnino Lemus MD Exam Type: CA echo doppler color flow Study Info Indications - FEVER hx/o tavr ppm stent Complete two-dimensional, color flow and Doppler transthoracic echocardiogram is performed. Summary 1. Complete two-dimensional, color flow and Doppler transthoracic echocardiogram is performed. 2. Left ventricular chamber dimension is mildly enlarged. 3. Left ventricular systolic function is normal, estimated at 60-65%. 4. There is mildly increased left ventricular wall thickness. 5. The left ventricular diastolic function is grade II diastolic dysfunction. 6. The basal inferior wall, mid inferior wall, basal inferolateral wall, and mid inferolateral wall are hypokinetic. 7. Right ventricular chamber dimension is mildly enlarged. 8. Left atrial chamber dimension is mildly enlarged. 9. There is mild not well visualized prosthetic aortic valve stenosis with a peak velocity of 177 cm/s, mean gradient of 9 mmHg, and aortic valve area of 1.9 cm2. 10. The mitral valve has thickened leaflets and calcified annulus. 11. There is mild mitral valve regurgitation. 12. There is mild tricuspid valve regurgitation. 13. Mild pulmonary hypertension, estimated pulmonary arterial systolic pressure is 38 mmHg. 14. There is mild pulmonic regurgitation. Left Ventricle Left ventricular chamber dimension is mildly enlarged. Left ventricular systolic function is normal, estimated at 60-65%. There is mildly increased left ventricular wall thickness. The left ventricular diastolic function is grade II diastolic dysfunction. The basal inferior wall, mid inferior wall, basal inferolateral wall, and mid inferolateral wall are hypokinetic. All other pickett appear normal. Right Ventricle Right ventricular chamber dimension is mildly enlarged. Right ventricular systolic function is normal. Left Atria Left atrial chamber dimension is mildly enlarged. Right Atria Right atrial chamber dimension is normal. Atrial Septum Intact interatrial septum visualized by color flow imaging. Aortic Valve There is mild not well visualized prosthetic aortic valve stenosis with a peak velocity of 177 cm/s, mean gradient of 9 mmHg, and aortic valve area of 1.9 cm2. There is trace regurgitation of the not well visualized prosthetic aortic valve. Pulmonic Valve The pulmonic valve is normal. There is no pulmonic valve stenosis. There is mild pulmonic regurgitation. Mitral Valve The mitral valve has thickened leaflets and calcified annulus. There is no mitral valve stenosis. There is mild mitral valve regurgitation. Tricuspid Valve The tricuspid valve leaflets are normal. There is no significant tricuspid valve stenosis. There is mild tricuspid valve regurgitation. Mild pulmonary hypertension, estimated pulmonary arterial systolic pressure is 38 mmHg. Pericardium/Pleural The pericardium appears normal. There is trivial pericardial effusion. Inferior Vena Cava Normal inferior vena cava with >50% collapse upon inspiration consistent with normal right atrial pre
--- NOTE | ~2020-08-05 | US_ITS ---
EXAMINATION: US art doppler w alejandra LE BI DATE: 08/05/2020 13:18 INDICATION: Peripheral vascular disease TECHNIQUE: Segmental pressures and plethysmographic and Doppler waveforms of the brachial and lower e xtremity arteries were obtained. COMPARISON: None. FINDINGS: Right and left brachial artery pressures of 148 mm Hg and 130 mm Hg, respectively, are concordant (no rmal difference <= 30 mmHg). The right ankle-brachial index (GINA) is 1.11 (normal >= 0.9-1). The right great toe-brachial index (T BI) was unable to be obtained due to no discernible pulse at the right great toe (normal >= 0.6-0.8). Arterial waveforms are biphasic with brisk systolic upstrokes at the right common femoral and superf icial femoral arteries. Parvus tardus waveforms at the right popliteal and more significantly at the right posterior tibial artery. No discernible pulses or evident vascular flow on color Doppler in the right dorsalis pedis artery. The left GINA was unable to be obtained with noncompressible left dorsalis pedis artery and no discern ible pulses or evident vascular flow on color Doppler in the left posterior tibial artery. The left T BI is 0.24. Arterial waveforms are biphasic with brisk systolic upstrokes at the left common femoral and superficial femoral arteries parvus et tardus waveform at the left popliteal artery and more sign ificantly at the left dorsalis pedis artery. Slow aphasic flow at the left posterior tibial artery. IMPRESSION: 1. Arterial occlusive disease in the right lower limb with occluded right dorsalis pedis artery, pros tatitis waveforms in the right popliteal and posterior tibial arteries and no discernible pulses at t he right great toe. Normal right GINA of 1.11 however could not exclude artifactual elevation due to m ural calcification with vessel wall calcification evident on radiographs dated 08/05/2020. 2. Arterial occlusive disease to the left lower limb with severely decreased left TBI, parvus et tard us waveforms in the left popliteal and dorsalis pedis arteries and aphasic flow in the left posterior tibial artery. Reviewed, dictated and finalized at location A. IMPRESSION: 1. Arterial occlusive disease in the right lower limb with occluded right dorsa lis pedis artery, prostatitis waveforms in the right popliteal and posterior ti bial arteries and no discernible pulses at the right great toe. Normal right AB I of 1.11 however could not exclude artifactual elevation due to mural calcific ation with vessel wall calcification evident on radiographs dated 08/05/2020. 2. Arterial occlusive disease to the left lower limb with severely decreased le ft TBI, parvus et tardus waveforms in the left popliteal and dorsalis pedis art eries and aphasic flow in the left posterior tibial artery.
--- NOTE | ~2020-08-05 | XR_ITS ---
EXAMINATION: XR chest 1V portable DATE: 08/06/2020 05:24 INDICATION: Shortness of breath. Acute respiratory failure. TECHNIQUE: frontal view of the chest was obtained. COMPARISON: Chest radiograph dated 08/05/2020 FINDINGS: Again seen diffuse mild bronchial wall thickening. Slight improvement in the scattered mild opacities in the bilateral perihilar regions and lower lung zones. No pleural effusion or pneumothorax. Heart size is within normal limits for AP technique. Coronary artery stenting. Median sternotomy wire s, ostial markers and mediastinal surgical clips consistent with prior coronary artery bypass graftin g. Three lead pacemaker seen with leads projecting over the expected locations of the right atrial ap pendage, apex of the right ventricle and overlying the left ventricle likely having traversed the cor onary sinus. Aortic valve repair. IMPRESSION: 1. Mild diffuse bronchial wall thickening with slight improvement in mild perihilar and lower lung pr edominant opacities which could represent pneumonia and/or pulmonary edema. Reviewed, dictated and finalized at location A. IMPRESSION: 1. Mild diffuse bronchial wall thickening with slight improvement in mild perih ilar and lower lung predominant opacities which could represent pneumonia and/o r pulmonary edema.
--- NOTE | ~2020-08-05 | NM_ITS ---
EXAMINATION: NM bone 3 phase DATE: 08/06/2020 06:47 INDICATION: Right foot ulcer. TECHNIQUE: 16 mCi Tc-99m HDP was administered intravenously. Scintigrams of the teeth were obtained i n angiographic, blood pool, and delayed phases. COMPARISON: Right foot radiographs 08/05/2020 FINDINGS: There is amputation of the right second and third digits. There is increased activity in th e area of the heads of the second and third metatarsals and fourth metatarsophalangeal joint on all p hases correlating with radiographic abnormalities. IMPRESSION: 1. Osteomyelitis involving the base of right fourth proximal phalanx and head of right fourth metata rsal. 2. Increased activity in the heads of the right second and third metatarsals, which may be osteomyeli tis and/or recent surgical change. Reviewed, dictated and finalized at location B. IMPRESSION: 1. Osteomyelitis involving the base of right fourth proximal phalanx and head of right fourth metatarsal. 2. Increased activity in the heads of the right second and third metatarsals, w hich may be osteomyelitis and/or recent surgical change.
--- NOTE | ~2020-08-05 | XR_ITS ---
EXAMINATION: XR foot RT min 3V DATE: 08/05/2020 08:39 INDICATION: Right foot ulcer. TECHNIQUE: 4 views of right foot were obtained. COMPARISON: None. FINDINGS: The second and third digits are absent. There are deformities of the heads of the second an d third metatarsals. There are erosions of base of fourth proximal phalanx and head of fourth metatar erum. There is a pathologic fracture of base of fourth proximal phalanx. The distal fracture fragment demonstrates 3 mm medial displacement and 2 mm dorsal displacement. There is mild osteoarthritis of f irst metatarsophalangeal joint and some of the interphalangeal joints. There is an enthesophyte at pl brian aspect of calcaneal tuberosity. IMPRESSION: 1. Osteomyelitis involving base of fourth proximal phalanx with pathologic fracture. Osteomyelitis in volving head of fourth metatarsal. 2. Deformities of the heads of the second and third metatarsals, which may be osteomyelitis or surgic al change. Reviewed, dictated and finalized at location B. IMPRESSION: 1. Osteomyelitis involving base of fourth proximal phalanx with pathologic frac ture. Osteomyelitis involving head of fourth metatarsal. 2. Deformities of the heads of the second and third metatarsals, which may be o steomyelitis or surgical change.
--- NOTE | ~2020-08-05 | XR_ITS ---
EXAMINATION: XR chest 1V portable DATE: 08/05/2020 06:34 INDICATION: Chest pain TECHNIQUE: frontal view of the chest was obtained. COMPARISON: Chest radiograph dated 08/04/2020 FINDINGS: No significant change in diffuse bronchial wall thickening and scattered mild perihilar and lower larry g predominant opacities. No pleural effusion or pneumothorax. The cardiomediastinal silhouette is nor mal. Coronary artery stenting. Median sternotomy wires, ostial markers and mediastinal surgical clips consistent with prior coronary artery bypass grafting. Aortic valve repair. Three lead pacemaker see n with leads projecting over the expected locations of the right atrial appendage, apex of the right ventricle and overlying the left ventricle likely having traversed the coronary sinus. Right rotator cuff calcific tendinitis. IMPRESSION: 1. No significant change in diffuse bilateral bronchial wall thickening and mild perihilar and lower lung predominant opacities which could represent pneumonia and/or pulmonary edema. Reviewed, dictated and finalized at location A. IMPRESSION: 1. No significant change in diffuse bilateral bronchial wall thickening and mil d perihilar and lower lung predominant opacities which could represent pneumoni a and/or pulmonary edema.
--- NOTE | 2020-08-05 03:51 | ADMGEN ---
This patient, Justin Peguero, was admitted to Medical Room 247-. Patient/family oriented to hospital policies and general routines including ID bracelet, bed and alarms, visiting hours, pain management, procedures, bathroom and other care routines, personal items, smoking policy, room service/diet, and visiting hours. Information on how to activate the Rapid Response Team has been discussed. Patient/Family are encouraged to report perceived risks to care and to ask questions if they do not understand what they are told or what they should do.
--- NOTE | 2020-08-05 05:36 | PM.IMHP ---
H&P: HPI History of Present Illness Date/Time: 08/05/20 05:36 Chief Complaint: fever Narrative: Mr Peguero is a pleasant gentleman who is transferred from [facility] , admitted from 08/02/2020 after he was sent to the hospital by his home health nurse, who had been doing his dressing changes on his chronic right foot wound. She felt he had a cellulitis of that chronic wound, and the toe next to the wound, since he had a fever of 101.5 on 08/02/2020 when she saw him, and a foot with the appearance of cellulitis. His chronic foot wound had an inflamed area around it, about an inch all the way around the cavity, that appeared to have a cellulitis. He also had obvious cellulitis in his remaining forth toe, the toe next to the wound. It was felt at the time, the cellulitis likely represented the cause of his fever. He had blood cultures done, a urinalysis, and he was started on Vancomycin, and Ancef. He was given vancomycin 1 gram in ER, and the dosed by pharmacy with 1500mg/day. He was started on Ancef 1gm every 8 hours. Since he has been here, for the last two days, he has almost continually had a fever in the range of 38.4 and a little above that. The nurses have dosed him with tylenol repeatedly. On 08/04/2020 the nurse practitioner stopped the ancef and started Levaquin 750mg/day. She had done a repeat CXR and noted the perihilar densities. Being concerned about a pneumonia, she started the Levaquin. with ongoing fever, a transfer was requsted to be evaluated her with infectious disease consult and further workup. he reports that he had two amupation done in apr and may and has had wound since then. he is going to the wound center since then and getting home health for dressing changes. he reports that the wound has been draining recently and he stared having fever. he denies any cough or sob out of ordinary. he uses oxygen at night all the time. he has hx of TAVR from 2011, hx of cardiac stents x 4, cabg 2004, diabets mellitus on insulin, right femoropopliteal bypass done in may 2020 by vascular lar[place]an at [facility]. Review of Systems Review of Systems: Narrative: - CONSTITUTIONAL: Denies weight loss, repots fever and chills. - HEENT: Denies changes in vision and hearing - RESPIRATORY:reports chroni c SOB and no cough. - CV: Denies palpitations and CP. - GI: Denies abdominal pain, nausea, vomiting and diarrhea. - : Denies dysuria and urinary frequency. - MSK: Denies myalgia and joint pain. - SKIN: Denies rash and pruritus. - NEUROLOGICAL: Denies headache and syncope. - PSYCHIATRIC: Denies recent changes in mood. Denies anxiety and depression. All systems reviewed & are unremarkable except as noted in HPI and below PMFSH Past Medical History Medical History Aortic valve disease CAD (coronary artery disease) Heart disease Hypertension IDDM (insulin dependent diabetes mellitus) Pacemaker 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 Surgical History Surgical History H/O left inguinal hernia repair H/O parathyroidectomy History of aortic valve repair History of coronary artery stent placement S/P CABG x 6 Family History Family History Mother Hypertension Father Heart disease Mitral valve replaced Sibling Heart disease Sibling Heart disease Sibling Heart disease Sibling Heart disease Social History Social History Smoking status: Former smoker Second hand tobacco smoke exposure: Yes (Parents) Additional smoking assessment comments: STOPPED SMOKING 1976 Alcohol intake: former Drinks per week: 30 Substance use: former Substance use type: marijuana Gender identity (if verbalized by the patient): Male Spiritual care concerns: No Med
--- NOTE | 2020-08-05 06:12 | ECG_ITS ---
Measurements Intervals [place] Rate: 102 P: AR: 0 QRS: -62 QRSD: 155 T: 80 QT: 394 QTc: 516 Interpretive Statements ELECTRONIC ATRIAL PACEMAKER WITH INHIBITION ELECTRONIC VENTRICULAR PACEMAKER UNDERLYING SINUS OR ATRIAL TACHYCARDIA BASELINE ARTIFACT- I, II, III, AVF, V3-V6 NO FURTHER INTERPRETATION IS POSSIBLE BORDERLINE ECG Electronically Signed On 08-05-2020 7:14:47 CDT by Kenny Lomax D.O.
[2020-08-05 06:18] LABS: Glucose Point of Care 196 (65-105)
[2020-08-05 06:24] LABS: Basophils Absolute Auto 0.1 K/mm3 (0.0-0.1); Basophils Percent Auto 0.6 % (0.2-1.2); Eosinophils Absolute Auto 0.2 K/mm3 (0-0.3); Eosinophils Percent Auto 1.9 % (0-4.4); Hematocrit 37.8 % (42.0-52.0); Immature Granulocyte Absolute 0.06 K/mm3 (0.00-0.031); Immature Granulocyte Percent A 0.5 % (0-0.5); Lymphocytes Absolute Auto 1.21 K/mm3 (0.9-3.2); Lymphocytes Percent Auto 10.7 % (18.3-44.2); Mean Corpuscular HGB Conc 31.7 g/dl (32-36); Mean Corpuscular Hemoglobin 27.8 pg (26-34); Mean Corpuscular Volume 87.7 fl (80-100); Mean Platelet Volume 8.9 fl (7.4-10.4); Monocytes Absolute Auto 1.3 K/mm3 (0.1-0.6); Monocytes Percent Auto 11.6 % (2.6-8.5); Neutrophils Absolute Auto 8.4 K/mm3 (1.3-6.7); Neutrophils Percent Auto 74.7 % (45.5-73.1); Platelet Count Result 346 k/mm3 (150-375); Red Blood Count 4.31 M/mm3 (4.6-6.20); Red Cell Distribution Width 18.8 % (11.5-14.5); White Blood Count 11.3 K/mm3 (4.5-10.0)
[2020-08-05 06:28] LABS: Hemoglobin A1C 7.6 % (<5.7)
[2020-08-05 06:32] LABS: Lactic Acid Reflex 2.6 mmol/L (0.7-2.1)
--- NOTE | 2020-08-05 06:34 | P.PNCROSS_ITS ---
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 diaphoretic. bp elevated. oxygen satulation low at 70s. tachycardic mildly, paced rhythm on telemetry. 0/e chest with severe respiratory distress, diffuse wheezing and crackles all over his chest. Placed emergently on NRM with some improvmeent of oxygen up to mid 80s, subsequently started on BIPAP at 20/8 with improvement in saturation and his respiratory staus. S/L nitro given stat and iv lasix 40 mg given. Oxygenation imporved. chest pain resolved. STAT EKG with paced rhythem, no signs of ST elevation on the EKG noted. cardiac markers and BNP drawn STAT CXR consistent with increased pulmonary edema, comapred to one done at [facility] on 08/04/2020. will contine bipap support for now. taper as tolerated. will transfer him to IMU for further care and treatment cardiology consultation. ECHO has already been ordered.
[2020-08-05 06:35] LABS: Alanine Aminotransferase 14 U/L (4-50); Albumin Level 4.3 g/dL (3.5-5.1); Alkaline Phosphatase 115 U/L (38-126); Anion Gap 11 mmol/L (8-16); Aspartate Amino Transferase 24 U/L (17-59); Bilirubin,Total 0.4 mg/dL (0.2-1.3); Blood Urea Nitrogen 20 mg/dL (9-20); Calcium 9.6 mg/dL (8.4-10.2); Carbon Dioxide 24 mmol/L (22-30); Chloride 103 mmol/L (98-107); Estimated CRCL calculation 68 ml/min; Estimated Glomerular Filt Rate > 60; Glucose 192 mg/dL (75-110); Magnesium 2.2 mg/dL (1.6-2.3); Potassium 4.4 mmol/L (3.4-5.0); Sodium 138 mmol/L (137-145)
[2020-08-05 06:46] LABS: Troponin I 0.074 ng/mL (0.000-0.034)
--- NOTE | 2020-08-05 06:50 | PC.NURSE ---
0600PT C/O CHEST PAIN WHILE LAB WAS IN ROOM ATTEMPTING TO DRAW BLOOD, O2 SAT DROPPED TO 82% WHILE ON 2L NC RAPID RESP TEAM CALLED TRANSFER TO IMU AT 0645
[2020-08-05 06:56] LABS: NT Pro B Type Natriuretic Pept 7810 pg/mL (5-100)
[2020-08-05] MEDS: ALBUTEROL SULFATE NEB 2.5 MG/3 ML INH 1.25 MG INHALATION (06:56)
--- NOTE | 2020-08-05 07:03 | PC.NURSE ---
This patient, Justin Peguero, was received from [ ] on 08/05/20 at 0703. Patient/family oriented to unit policies and routines. Report from Nurse Mariana Marie
[2020-08-05] MEDS: FUROSEMIDE INJ 40 MG/4 ML VIAL IV PUSH ×2 (07:16→09:47)
[2020-08-05 08:09] LABS: Erythrocyte Sedimentation Rate 7 mm/hr (0-20)
--- NOTE | 2020-08-05 08:15 | ECG_ITS ---
Measurements Intervals [place] Rate: 65 P: 37 AL: 177 QRS: 15 QRSD: 101 T: 179 QT: 437 QTc: 456 Interpretive Statements SINUS RHYTHM ST-T WAVE ABNORMALITY IN ANTEROLAT/HIGH LAT LEADS- CONSIDER ISCHEMIA BASELINE ARTIFACT- II, III, AVL, AVF ABNORMAL ECG Electronically Signed On 08-05-2020 9:15:09 CDT by Kenny Lomax D.O.
[2020-08-05 08:31] LABS: Glucose Point of Care 223 (65-105)
[2020-08-05 09:18] LABS: Reflex Lactic Acid Yes or No Add Lactic
[2020-08-05 09:27] LABS: Alveolar/Arterial O2 Gradient 97.3 mmHg; Base Excess ABG 0.6 mEq/l (+/-2.0); Fractional Inspired Oxygen 40 %; HCO3 ABG 20.9 mEq/l (22.0-26.0); Oxygen Saturation ABG 99.4 % (95.0-100.0); Oxyhemoglobin 98.1 % THb (90.0-100.0); PO2 ABG 162.9 mmHg (80.0-100.0); PO2 FiO2 Ratio Arterial Blood 4.07 %; Total Hemoglobin 10.6 g/dL (12.0-18.0); pH ABG 7.602 (7.350-7.450)
[2020-08-05 09:28] LABS: Device NON-INVASIVE VENT; Modified Allen's Test Pass; Non-Invasive Expiratory Pressure 8 CMH2O; Non-Invasive Inspiratory Pressure 15 CMH2O; Non-Invasive Vent Rate 16 /MIN; PCO2 ABG 21.7 mmHg (35.0-45.0); Site Drawn LEFT RADIAL
--- NOTE | 2020-08-05 09:36 | PCOTNOTE ---
Attempted OT evaluation, per MD hold therapy until afternoon, will follow and attempt at later time.
[2020-08-05] MEDS: ISOSORBIDE MONONITRATE 30 MG TAB.ER.24H PO (09:47)
[2020-08-05] MEDS: ATORVASTATIN 40 MG TABLET 80 MG PO (09:48)
[2020-08-05] MEDS: NIFEdipine 30 MG TAB.ER.24 60 MG PO (09:48)
[2020-08-05] MEDS: PANTOPRAZOLE 40 MG TABLET PO ×2 (09:48→18:40)
[2020-08-05] MEDS: cloNIDine HCL 0.2 MG TABLET PO ×2 (09:48→20:17)
[2020-08-05] MEDS: TICAGRELOR 90 MG TABLET PO ×2 (09:48→20:18)
[2020-08-05] MEDS: HEPARIN SODIUM 5,000 UNITS/ML VIAL 5000 UNITS SUB-Q ×2 (09:48→20:17)
[2020-08-05] MEDS: hydrALAZINE HCL 50 MG TABLET PO ×3 (09:48→18:40)
[2020-08-05] MEDS: CHOLECALCIFEROL 1,000 UNITS TABLET 1000 UNITS PO (09:49)
[2020-08-05] MEDS: carvediloL 25 MG TABLET PO ×2 (09:49→20:16)
[2020-08-05] MEDS: SENNOSIDES 8.6 MG TABLET PO (09:49)
[2020-08-05] MEDS: ASPIRIN 81 MG CHEWABLE TABLET PO (09:49)
[2020-08-05] MEDS: INSULIN ASPART (*BKC) 100 UNITS/ML 12 UNITS SUB-Q (09:50)
--- NOTE | 2020-08-05 10:05 | PM.CNCAR ---
Assessment and Plan Assessment and plan (1) CAD (coronary artery disease): Code(s): I25.10 - Atherosclerotic heart disease of [place] coronary artery without angina pectoris Status: Acute Assessment and Plan: Extensive cardiac history including bypass grafting about 15 years ago as well as multiple stents. Recent coronary angiogram in [place] with unknown details at this point. Elevated troponins likely represent small non ST-elevation myocardial infarction. Currently pain free. Will discontinue nitroglycerin paste and continue his isosorbide mononitrate. Continue his carvedilol, aspirin, Brilinta. His Brilinta should be 90 mg p.o. b.i.d.. This will be changed. Medical reconciliation only has it as daily. Will request records from [place]. (2) CHF (congestive heart failure): Code(s): I50.9 - Heart failure, unspecified Status: Acute Assessment and Plan: Probably diastolic in etiology. Furosemide 40 mg IV x1 now and then 20 mg IV q.12 hours. 2D echocardiogram Doppler earlier ordered and reviewed. Follow electrolytes. (3) History of aortic valve repair: Code(s): Z98.890 - Other specified postprocedural states; Z86.79 - Personal history of other diseases of the circulatory system Status: Acute Assessment and Plan: Status post TAVR in 2011. Echo to be ordered (4) PAD (peripheral artery disease): Code(s): I73.9 - Peripheral vascular disease, unspecified Status: Acute Assessment and Plan: Significant peripheral artery disease including previous right-sided fem-pop bypass. Vascular surgeon is in [place] also. (5) Hypertension associated with diabetes: Code(s): E11.59 - Type 2 diabetes mellitus with other circulatory complications; I15.2 - Hypertension secondary to endocrine disorders Status: Acute Assessment and Plan: Above goal but has not received his medications if today (6) Pacemaker: Code(s): Z95.0 - Presence of cardiac pacemaker Status: Acute Assessment and Plan: AV paced and appears to be functioning normally (7) Chest pain: Code(s): R07.9 - Chest pain, unspecified Status: Acute Assessment and Plan: As detailed above. Likely related to small non ST-elevation myocardial infarction. Will continue to trend troponins. EKG shows a paced rhythm without other interpretation Ultimately, this patient should be transferred to [place]. All of his cardiac and vascular care and in fact most of his physicians are all in [place]. He had a recent catheterization performed a couple of weeks ago. History of Present Illness History of Present Illness Consult date/time: 08/05/20 10:05 Requesting physician: Saturnino Lemus MD Consult reason: chest pain and congestive heart failure Reason For Visit: Fever, Cellulitis Narrative: Date of service 08/05/2020 History: Patient is a 69-year-old male who has a history of bypass grafting in 2005, TAVR in 2011, vascular surgery fem-pop bypass right leg, recent catheterization 2-3 weeks ago. Almost entirely all of his medical care is through to [facility] in [place] including his cardiac and vascular care. He is being followed by wound care and was told recently to go to the nearest hospital from his home health nurse because of chronic right foot wound. He therefore went to [facility]. He is being treated for cellulitis of his chronic wound but due to persistent fever he was transferred to [facility] for further treatment. Patient was having intermittent shortness of breath and chest pain while in [place] and at baseline has some chest tightness. This morning upon arrival to [place] he had severe chest tightness/pain along with severe shortness of breath. He states that he was feeling like he was filling up with fluid. He was given nitroglycerin, started on BiPAP and furosemide was ordered. Gradually his symptoms improved he
[2020-08-05 10:06] LABS: Troponin I 0.087 ng/mL (0.000-0.034)
--- NOTE | 2020-08-05 11:44 | PCPTNOTE ---
Attempted PT evaluation, per MD hold therapy until afternoon, will follow and attempt at later time.
--- NOTE | 2020-08-05 11:52 | WPDINFPN2 ---
Progress Note: A&P Assessment and Plan (1) Cellulitis and abscess of foot: Code(s): L03.119 - Cellulitis of unspecified part of limb; L02.619 - Cutaneous abscess of unspecified foot Status: Acute Assessment and Plan: Fever due to R foot cellulitis and new OM 4th MT and toe REC Get prior imaging. Cefepime and Vanc. Anticipate prolonged IV therapy, and will also need re-visit with his vascular surgeon, as amputation of distal MT and toe will likely be required. Subjective Date/time seen: 08/05/20 11:52 Objective Data Vital Signs Vital Signs: Vital Signs - 24 hr 08/05/20 03:56 08/05/20 04:39 08/05/20 06:25 Temperature 37.1 C Pulse Rate 81 81 100 Respiratory Rate 20 20 37 H Blood Pressure 166/74 H Pulse Oximetry 95 95 100 08/05/20 06:29 08/05/20 06:52 08/05/20 07:02 Temperature 36.1 C L Pulse Rate 106 H 104 H 74 Respiratory Rate 37 H 38 H 43 H Blood Pressure 179/122 H 157/64 H Pulse Oximetry 82 L 99 08/05/20 08:00 08/05/20 08:42 08/05/20 09:30 Temperature 36.1 C L Pulse Rate 66 66 Respiratory Rate 24 H 19 Blood Pressure 147/55 H Pulse Oximetry 96 100 95 08/05/20 09:51 Temperature Pulse Rate Respiratory Rate Blood Pressure Pulse Oximetry 96 Intake/Output Intake/Output: Intake & Output 08/02/20 08/03/20 08/04/20 08/05/20 23:59 23:59 23:59 23:59 Output Total 150 Balance -150 Meds/Results Medications: Active Medications Generic Name Dose Route Start Last Admin Trade Name Freq PRN Reason Stop Dose Admin Acetaminophen 650 mg 08/05/20 05:42 Acetaminophen 325 Mg Tablet PO Q4H PRN Mild Pain (1-3) or Fever Hydrocodone Bitart/Acetaminophen 1 tab 08/05/20 05:42 Hydrocodone/Acetaminophen (*Crx) 5-325 Mg Tablet PO Q4H PRN Moderate Pain (4-6) Aspirin 81 mg 08/05/20 08:00 08/05/20 09:49 Aspirin 81 Mg Chewable Tablet PO 81 mg DAILY@0800 SAILAJA Administration Atorvastatin Calcium 80 mg 08/05/20 09:00 08/05/20 09:48 Atorvastatin 40 Mg Tablet PO 80 mg DAILY SAILAJA Administration Bisacodyl 5 mg 08/05/20 05:42 Bisacodyl 5 Mg Tablet Ec PO DAILY PRN Constipation Carvedilol 25 mg 08/05/20 09:00 08/05/20 09:49 Carvedilol 25 Mg Tablet PO 25 mg Q12HR SAILAJA Administration Clonidine HCl 0.2 mg 08/05/20 09:00 08/05/20 09:48 Clonidine Hcl 0.2 Mg Tablet PO 0.2 mg Q12HR SAILAJA Administration Dextrose 12.5 gm 08/05/20 05:42 Dextrose 50% 25 Gm/50 Ml Syringe IV PUSH PRN PRN Hypoglycemia Protocol Diphenhydramine HCl 25 mg 08/05/20 07:30 Diphenhydramine Hcl Cap 25 Mg Capsule PO Q8H PRN Allergy Symptoms Furosemide 40 mg 08/05/20 09:00 08/05/20 09:47 Furosemide Inj 40 Mg/4 Ml Vial IV PUSH 40 mg DAILY SAILAJA Administration Glucagon 1 mg 08/05/20 05:42 Glucagon For Inj 1 Mg Vial IM PRN PRN Hypoglycemia Protocol Glucose 15 gm 08/05/20 05:42 Glucose Oral Gel 15 Gm Of Glucse In 37.5 Gm Tube PO PRN PRN Hypoglycemia Protocol Heparin Sodium (Porcine) 5,000 units 08/05/20 09:00 08/05/20 09:48 Heparin Sodium 5,000 Units/Ml Vial SUB-Q 5,000 units Q12HR SAILAJA Administration Hydralazine HCl 50 mg 08/05/20 09:00 08/05/20 09:48 Hydralazine Hcl 50 Mg Tablet PO 50 mg TID SAILAJA Administration Dextrose 1,000 mls @ 100 mls/hr 08/05/20 05:42 Dextrose 5% 1,000 Ml IVPB PRN PRN Hypoglycemia Protocol Cefepime HCl 2 gm in 50 mls @ 100 mls/hr 08/05/20 07:00 08/05/20 06:48 Maxipime 2 Gm/D5w 50 Ml IVPB 100 mls/hr Q12H SAILAJA Administration Vancomycin HCl 1,500 mg in 500 mls @ 333.333 mls/hr 08/05/20 12:00 Vancomycin 1,500 Mg/D5w 500 Ml IVPB Q24H SAILAJA Insulin Aspart 2 - 5 units 08/05/20 08:00 08/05/20 09:53 Insulin Aspart (*Bkc) 100 Units/Ml SUB-Q Not Given TIDWM [facility] Protocol Insulin Aspart 12 units 08/05/20 08:00 08/05/20 09:50 Insulin Aspart (*Bk
[2020-08-05 11:54] LABS: Lactic Acid 1.3 mmol/L (0.7-2.1)
[2020-08-05 12:09] LABS: Troponin I 0.105 ng/mL (0.000-0.034)
[2020-08-05 12:56] LABS: Vancomycin Trough 11.1 ug/mL (10.0-20.0)
[2020-08-05 13:33] LABS: Glucose Point of Care 123 (65-105)
--- NOTE | 2020-08-05 13:36 | PCOTNOTE ---
Attempted OT evaluation, per RN hold for afternoon due to patient in testing, will follow and attempt at later time.
[2020-08-05] MEDS: LIDOCAINE HCL 1% PF INJ 5 ML VIAL INFILTRATE (14:00)
--- NOTE | 2020-08-05 14:59 | PM.IMPN ---
Progress Note: A&P Assessment and Plan (1) Fever, unknown origin: Code(s): R50.9 - Fever, unspecified Status: Acute Assessment and Plan: Fever likely secondary to OM. Seen by ID, on iv cef and vancomycin for R foot cellulitis and new OM. See report- Osteomyelitis involving base of fourth proximal phalanx with pathologic fracture. Osteomyelitis involving head of fourth metatarsal. 2. Deformities of the heads of the second and third metatarsals, which may be osteomyelitis or surgical change. Pt will need to return to vascular surgery. (2) Cellulitis and abscess of foot: Code(s): L03.119 - Cellulitis of unspecified part of limb; L02.619 - Cutaneous abscess of unspecified foot Status: Acute Assessment and Plan: Seen by ID, on iv vancomycin for R foot cellulitis and new OM (3) Cellulitis: Qualifiers: Laterality: right Site of cellulitis: extremity Site of cellulitis of extremity: lower extremity Qualified Code(s): L03.115 - Cellulitis of right lower limb Code(s): L03.90 - Cellulitis, unspecified Status: Acute Assessment and Plan: Seen by ID, on iv vancomycin for R foot cellulitis and new OM (4) Chronic kidney disease: Code(s): N18.9 - Chronic kidney disease, unspecified Status: Acute Assessment and Plan: Continue to watch BMP (5) Amputation of one or more toes: Code(s): S98.139A - Complete traumatic amputation of one unspecified lesser toe, initial encounter Status: Acute Assessment and Plan: Known history (6) Pacemaker: Code(s): Z95.0 - Presence of cardiac pacemaker Status: Acute Assessment and Plan: IN SITU pt seen by cardiology benefits from transfer back to his doctors in [place] (7) IDDM (insulin dependent diabetes mellitus): Code(s): E11.9 - Type 2 diabetes mellitus without complications; Z79.4 - MCC (current) use of insulin Status: Chronic Assessment and Plan: Accuchecks, SSI, continue to monitor (8) Hypertension: Code(s): I10 - Essential (primary) hypertension Status: Acute Assessment and Plan: Chronic continue to monitor (9) CAD (coronary artery disease): Code(s): I25.10 - Atherosclerotic heart disease of [place] coronary artery without angina pectoris Status: Chronic Assessment and Plan: Seen by cardiology see evaluation. Cardiology benefits from transfer back to his doctors in [place] Subjective Date/time seen: 08/05/20 14:59 Interval history: Mr Marielena is a pleasant gentleman who is transferred from [facility] , admitted from 08/02/2020 after he was sent to the hospital by his home health nurse, who had been doing his dressing changes on his chronic right foot wound. Pt has history of TAVR from 2011, hx of cardiac stents x 4, cabg 2004, diabets mellitus on insulin, right femoropopliteal bypass done in may 2020 by vascular surgen at [facility] IN [place]. Pt has acute respiratory distress and transfer to IMU on BIPAP this morning. Once pt is more stable needs o be transferred back to [facility]. Pt seen by cardiology and ID here. ABG checked pt can drop down to 2-4 liters via nasal canulae Review of Systems Review of Systems: All systems reviewed & are unremarkable except as noted in HPI and below Exam Narrative: Exam Narrative: GENERAL:Large man overweight, wearing bIPAP presently NECK: Neck supple CARDIOVASCULAR: Regular rate and paced rhythm RESPIRATORY: BL wheezy lungs GASTROINTESTINAL: Abdomen soft, non-tender, nondistended. Bowel sounds are active. SKIN: Second and third toe amputation NEURO: awake, alert, and oriented to person, place and time. EXTREMITIES: No edema. No calf tenderness. Negative Homans sign bilaterally. . Objective Data Vital Signs Vital Signs: Vital Signs - 24 hr 08/05/20 03:56 08/05/20 04:39 08/05/20 06:25 Temperature 37.1 C Pulse Rate 81
[2020-08-05 17:04] LABS: Glucose Point of Care 149 (65-105)
--- NOTE | 2020-08-05 17:58 | PM.IMHP ---
H&P: HPI History of Present Illness Date/Time: 08/05/20 17:58 Patient seen at bedside for evaluation of right foot ulceration and infection. The patient relates some difficulty breathing. Denies F/C/N/V. The patient relates some foot pain and pressure right foot. The patient states that he underwent a recent fempop bypass as well as amputation of his right 2nd and 3rd toes by his general/vascular surgeon. The patient had open management of wound the the 2nd and 3rd digits open sites by home health wound care. The patients wound care nurse noticed redness swelling and fevers developing so she urged the patient to go to the ER for evaluation and management. Chief Complaint: Cellulitis right foot Review of Systems Constitutional: Constitutional: Reports no additional constitutional complaints Musculoskeletal: Comments: Right foot pain. Neurologic: Reports paresthesias Comments: Relates history of paresthesias to both feet. [facility] Past Medical History Medical History (Updated 08/05/20 @ 15:09 by Monica Almeida MD) Aortic valve disease CAD (coronary artery disease) Heart disease Hypertension Hypertension associated with diabetes IDDM (insulin dependent diabetes mellitus) Pacemaker PAD (peripheral artery disease) 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 Surgical History Surgical History (Updated 08/05/20 @ 10:16 by Philip Jain MD) H/O left inguinal hernia repair H/O parathyroidectomy History of aortic valve repair History of coronary artery stent placement S/P CABG x 6 Family History Family History Mother Hypertension Father Heart disease Mitral valve replaced Sibling Heart disease Sibling Heart disease Sibling Heart disease Sibling Heart disease Social History Social History Smoking status: Former smoker Second hand tobacco smoke exposure: Yes (Parents) Additional smoking assessment comments: STOPPED SMOKING 1976 Alcohol intake: former Drinks per week: 30 Substance use: former Substance use type: marijuana Gender identity (if verbalized by the patient): Male Spiritual care concerns: No Meds Home Medications and Allergies Home Medications Medication Instructions Recorded Confirmed Type atorvastatin [Lipitor] 80 mg PO DAILY 03/27/19 08/05/20 History clonidine HCl 0.2 mg PO BID 03/27/19 08/05/20 History insulin aspart U-100 [Novolog See Rx Instructions .ROUTE .COMPLEX 03/27/19 08/05/20 History Flexpen U-100 Insulin] insulin glargine [Basaglar KwikPen 30 unit SUBCUT HS 03/27/19 08/05/20 History U-100 Insulin] nitroglycerin 0.4 mg SUBLINGUAL DIRECTED 03/27/19 08/05/20 History ticagrelor [Brilinta] 90 mg PO DAILY 03/27/19 08/05/20 History empagliflozin [Jardiance] 10 mg PO DAILY 04/27/20 08/05/20 History isosorbide mononitrate 30 mg PO DAILY 04/27/20 08/05/20 History denosumab [Prolia] 60 mg SUBCUT [id number] 07/16/20 08/05/20 History hydralazine 50 mg PO TID 08/02/20 08/05/20 History nifedipine [Adalat CC] 60 mg PO DAILY 08/02/20 08/05/20 History Adult Low Dose Aspirin 81 mg PO DAILY 08/05/20 08/05/20 History Allergy (diphenhydramine) 25 mg PO Q8-10H PRN 08/05/20 08/05/20 History Miralax 17 g PO DAILY PRN 08/05/20 08/05/20 History acetaminophen 650 mg PO Q8-10H PRN 08/05/20 08/05/20 History carvedilol 25 mg PO BID 08/05/20 08/05/20 History cholecalciferol (vitamin D3) 1,000 unit PO DAILY 08/05/20 08/05/20 History pantoprazole 40 mg PO BID 08/05/20 08/05/20 History senna 8.6 mg PO DAILY 08/05/20 08/05/20 History sucralfate 1 g PO Q4-6H 08/05/20 08/05/20 History ticagrelor [Brilinta] 90 mg PO DAILY 08/05/20 08/05/20 History torsemide 20 mg PO DAILY 08/05/20 08/05/20 History Allergies Allergy/AdvReac Type Severity Reaction Status Date / Time amoxicillin [From Augmentin] Allergy Rash Verified 07/16/20 22:28
--- NOTE | 2020-08-05 18:07 | CONS_ITS ---
DATE OF CONSULTATION: 08/05/2020 REASON FOR CONSULTATION: Fever. HISTORY OF PRESENT ILLNESS: A 69-year-old male with peripheral vascular disease. He has had previous bloodstream infections with MRSA and a gram-negative luis. He was never told of the results or the reasons for the bloodstream infection other than a single episode of MRSA pneumonia. These were a number of years ago, treated at other hospitals. He was undergoing treatment at [facility] and also at [facility] in [place] for gangrene of his right 3rd toe in March and then right second toe in April. Both of these were self-induced by dropping objects. He underwent some type of vascular bypass in the midst of the 2nd operation in April. He had wound VACs in multiple wounds over time. He apparently did not have long-term IV antibiotics postop after either therapy. The wound VACs have been removed, but he still has an open wound over the right foot. It became more erythematous on the and he was admitted to the hospital in [place]. He was then transferred here early today. He is currently on cefepime and vancomycin. Consultation requested. He has had no longer-term fever, chills, or sweats. No pain in the foot nor the toes. He is unable to get an MRI due to a pacemaker. He reports having CT scans done recently of the foot, but is unaware of the results. He knows of no other vascular compromise. His surgeon apparently was pleased with the appearance of the foot, although followup arterial testing apparently was still abnormal. There has been no diarrhea, skin rashes, headache, or cough. He was admitted to [facility] approximately 3 weeks ago with shortness of breath of very sudden onset. He was told he had fluid on his lungs. For unknown reasons, he also was given antibiotics at the time. ALLERGIES: AUGMENTIN CAUSED A RASH. ALSO METFORMIN. HABITS: Ex-alcohol to excess. Quit smoking in 1975 and past marijuana use. FAMILY HISTORY: Heart disease, hypertension. PAST MEDICAL HISTORY: CABG with prior stents, aortic valve repair but not replacement, parathyroid removal several years ago at [place], left inguinal hernia repair, PUD, diabetes mellitus, hypertension. REVIEW OF SYSTEMS: Hyperglycemia, 14-point review otherwise negative. SOCIAL HISTORY: No family at the bedside. He is retired, single, lives in [place], [place]. PHYSICAL EXAMINATION: GENERAL: Elderly male who appears his actual age. No acute distress. VITAL SIGNS: Available from [facility]. Shortly after arrival, he had a T-max of 37.7 and on the 8th, up to 38.4. Here he has been in the last 24 hours with a T-max 38.4 as well, 66, 19, 96% on room air, 147/55. SKIN: No rashes. Warm and dry. Well perfused in general. NODES: No cervical or axillary adenopathy. EENT: The conjunctivae are clear. Pupils equal and round. The oral mucosa is normal. He has some multiple missing and decayed teeth, but no tenderness. No paranasal sinus infection evident. NECK: No meningismus, mass or tenderness. LUNGS: Clear to auscultation and percussion. Good air entry. CHEST: Equal expansion. Normal AP diameter. Pacemaker site normal to inspection and palpation. CARDIAC: Regular rate and rhythm without murmur, gallop, or rub. ABDOMEN: Obese, nontender. No mass. No organomegaly. EXTREMITIES: Left lower extremity is normal to inspection and palpation, although dorsalis pedis pulses are 1+. On the right, dorsalis pedis pulses are trace. He has an open wound in the area of the 2nd and 3rd toes with some slough. There is mild erythema at the edges. The erythema also extends laterally. He has a subcentimeter area of superficial gangrene medial 4th toe. Over the lateral foot in the area of the 5th metatarsal shaft and head, he also has an area of w
[2020-08-05 21:16] LABS: Glucose Point of Care 255 (65-105)
[2020-08-05] MEDS: INSULIN GLARGINE (*BKC) 100 UNITS/ML 30 UNITS SUB-Q (21:53)
[2020-08-05] MEDS: HYDROcodone/acetaminophen (*CRX) 5-325 MG TABLET 1 TAB PO (21:54)
[2020-08-05] MEDS: COLLAGENASE OINT 30 GM TUBE 1 APPLIC TOPICAL (21:54)
[2020-08-05] MEDS: diphenhydrAMINE HCl CAP 25 MG CAPSULE PO (21:54)
[2020-08-05] MEDS: CENTRAL LINE FLUSH 10 ML IV PUSH (21:54)
[2020-08-05 22:02] LABS: Add Urine Microscopic? YES; Appearance Urine Clear (Clear); Bilirubin Urine Negative (Negative); Blood Urine Negative (Negative); Color Urine Yellow (Yellow); Glucose Urine UA 3+ mg/dL (Negative); Ketones Urine Negative (Negative); Leukocyte Esterase Ur Negative LEU/UL (Negative); Nitrate Urine Negative (Negative); Protein Urine 2+ mg/dL (Negative); RBC Urine 0-2 /hpf (0-2); Specific Grav Ur 1.017 (1.001-1.035); Squamous Epithelial Cell Urine Rare /hpf (Few); Urobilinogen Urine Negative mg/dL (<2.0); WBC Urine 0-3 /hpf
[2020-08-06] VITALS (17 sets, daily range): BP systolic 106–144; BP diastolic 40–55; PULSE 59–68; RESP 16–28; TEMP 35.7–36.8; O2SAT 93–100
[2020-08-06] MEDS: NITROGLYCERIN SL 0.4 MG TABLET SUBLINGUAL (00:13)
[2020-08-06 05:08] LABS: Hematocrit 28.9 % (42.0-52.0); Hemoglobin 9.1 g/dL (14.0-18.0); Mean Corpuscular HGB Conc 31.5 g/dl (32-36); Mean Corpuscular Hemoglobin 27.2 pg (26-34); Mean Corpuscular Volume 86.5 fl (80-100); Mean Platelet Volume 9.5 fl (7.4-10.4); Platelet Count Result 268 k/mm3 (150-375); Red Blood Count 3.34 M/mm3 (4.6-6.20); Red Cell Distribution Width 18.6 % (11.5-14.5); White Blood Count 4.6 K/mm3 (4.5-10.0)
[2020-08-06 05:18] LABS: Anion Gap 4 mmol/L (8-16); Blood Urea Nitrogen 20 mg/dL (9-20); Calcium 8.4 mg/dL (8.4-10.2); Carbon Dioxide 28 mmol/L (22-30); Chloride 105 mmol/L (98-107); Estimated CRCL calculation 63 ml/min; Estimated Glomerular Filt Rate 60; Glucose 166 mg/dL (75-110); Sodium 137 mmol/L (137-145)
[2020-08-06] MEDS: CENTRAL LINE FLUSH 10 ML IV PUSH ×3 (06:12→21:19)
[2020-08-06 07:07] LABS: Glucose Point of Care 180 (65-105)
[2020-08-06] MEDS: FUROSEMIDE INJ 40 MG/4 ML VIAL IV PUSH (08:01)
[2020-08-06] MEDS: ASPIRIN 81 MG CHEWABLE TABLET PO (08:01)
[2020-08-06] MEDS: TICAGRELOR 90 MG TABLET PO ×2 (08:02→21:20)
[2020-08-06] MEDS: ATORVASTATIN 40 MG TABLET 80 MG PO (08:02)
[2020-08-06] MEDS: hydrALAZINE HCL 50 MG TABLET PO ×3 (08:02→21:19)
[2020-08-06] MEDS: NIFEdipine 30 MG TAB.ER.24 60 MG PO (08:02)
[2020-08-06] MEDS: ISOSORBIDE MONONITRATE 30 MG TAB.ER.24H PO (08:02)
[2020-08-06] MEDS: HEPARIN SODIUM 5,000 UNITS/ML VIAL 5000 UNITS SUB-Q ×2 (08:03→21:19)
[2020-08-06] MEDS: INSULIN ASPART (*BKC) 100 UNITS/ML 12 UNITS SUB-Q (08:04)
[2020-08-06] MEDS: carvediloL 25 MG TABLET PO ×2 (08:04→21:19)
[2020-08-06] MEDS: CHOLECALCIFEROL 1,000 UNITS TABLET 1000 UNITS PO (08:04)
[2020-08-06] MEDS: cloNIDine HCL 0.2 MG TABLET PO ×2 (08:04→21:19)
[2020-08-06] MEDS: PANTOPRAZOLE 40 MG TABLET PO ×2 (08:07→17:10)
[2020-08-06] MEDS: HYDROcodone/acetaminophen (*CRX) 5-325 MG TABLET 1 TAB PO ×2 (09:07→21:25)
--- NOTE | 2020-08-06 10:41 | PM.IMPN ---
Progress Note: A&P Assessment and Plan (1) Fever, unknown origin: Code(s): R50.9 - Fever, unspecified Status: Acute Assessment and Plan: Fever likely secondary to OM. Seen by ID, on iv cef and vancomycin for R foot cellulitis and new OM. Osteomyelitis involving base of fourth proximal phalanx with pathologic fracture. Osteomyelitis involving head of fourth metatarsal. 2. Deformities of the heads of the second and third metatarsals, which may be osteomyelitis or surgical change. Patient need to follow-up with his established vascular surgeon will discuss with ID regarding does patient need to follow as an inpatient or as outpatient (2) Cellulitis and abscess of foot: Code(s): L03.119 - Cellulitis of unspecified part of limb; L02.619 - Cutaneous abscess of unspecified foot Status: Acute Assessment and Plan: Seen by ID, on iv vancomycin for R foot cellulitis and new OM (3) Cellulitis: Qualifiers: Laterality: right Site of cellulitis: extremity Site of cellulitis of extremity: lower extremity Qualified Code(s): L03.115 - Cellulitis of right lower limb Code(s): L03.90 - Cellulitis, unspecified Status: Acute Assessment and Plan: Continue IV antibiotics (4) Chronic kidney disease: Code(s): N18.9 - Chronic kidney disease, unspecified Status: Acute Assessment and Plan: States he avoid nephrotoxic medication monitor CMP (5) Amputation of one or more toes: Code(s): S98.139A - Complete traumatic amputation of one unspecified lesser toe, initial encounter Status: Acute Assessment and Plan: Known history monitor (6) Pacemaker: Code(s): Z95.0 - Presence of cardiac pacemaker Status: Acute Assessment and Plan: Follow-up with established cardiology as outpatient (7) IDDM (insulin dependent diabetes mellitus): Code(s): E11.9 - Type 2 diabetes mellitus without complications; Z79.4 - detention (current) use of insulin Status: Chronic Assessment and Plan: Accuchecks, SSI, continue to monitor (8) Hypertension: Code(s): I10 - Essential (primary) hypertension Status: Acute Assessment and Plan: Chronic continue to monitor (9) CAD (coronary artery disease): Code(s): I25.10 - Atherosclerotic heart disease of [place] coronary artery without angina pectoris Status: Chronic Assessment and Plan: Seen by cardiology see evaluation. Cardiology benefits from transfer back to his doctors in [place] Additional Plan s/p bovine TAVR 2011 s/p right 2nd and 3rd toe amputation may 2020 due to gangrene s/p femoppliteal bypass 05/2020 Subjective Date/time seen: 08/06/20 10:41 Interval history: Patient was sent to the hospital by his home health nurse, who had been doing his dressing changes on his chronic right foot wound. Pt has history of TAVR from 2011, hx of cardiac stents x 4, cabg 2004, diabets mellitus on insulin, right femoropopliteal bypass done in may 2020 by vascular surgen at [facility] IN [place]. Pt has acute respiratory distress and transfer to IMU on BIPAP his oxygenation improved and currently now on 4 L oxygen Concreting Supervisor as following infectious disease following patient may need amputation pending final recommendation from credit adjuster Exam Narrative: Exam Narrative: Alert Chest positive crackles Abdomen nontender nondistended CVS S1 + S2 Lower extremity positive edema Objective Data Vital Signs Vital Signs: Vital Signs - 24 hr 08/05/20 12:00 08/05/20 13:33 08/05/20 16:00 Temperature 97.1 F L Pulse Rate 75 63 63 Respiratory Rate 24 H Blood Pressure 160/56 H Pulse Oximetry 96 99 96 08/05/20 16:30 08/05/20 19:54 08/05/20 20:00 Temperature 97 F L 97.3 F L Pulse Rate 61 64 66 Respiratory Rate 26 H 20 Blood Pressure 142/60 H 118/50 L Pulse Oximetry 94 98 98 08/05/20 20:16 08/05/20
--- NOTE | 2020-08-06 11:36 | PM.PNCARD ---
Progress Note: A&P Assessment and Plan (1) CAD (coronary artery disease): Code(s): I25.10 - Atherosclerotic heart disease of [place] coronary artery without angina pectoris Status: Chronic Assessment and Plan: Extensive cardiac history including bypass grafting about 15 years ago as well as multiple stents. Recent coronary angiogram in [place] with unknown details at this point. Continue his current coronary drug regimen change (2) CHF (congestive heart failure): Code(s): I50.9 - Heart failure, unspecified Status: Acute Assessment and Plan: Probably diastolic in etiology. Reduce furosemide to 20 mg IV daily (3) History of aortic valve repair: Code(s): Z98.890 - Other specified postprocedural states; Z86.79 - Personal history of other diseases of the circulatory system Status: Acute Assessment and Plan: Status post TAVR in 2011. (4) PAD (peripheral artery disease): Code(s): I73.9 - Peripheral vascular disease, unspecified Status: Acute Assessment and Plan: Significant peripheral artery disease including previous right-sided fem-pop bypass. Vascular surgeon is in [place] also. (5) Hypertension associated with diabetes: Code(s): E11.59 - Type 2 diabetes mellitus with other circulatory complications; I15.2 - Hypertension secondary to endocrine disorders Status: Acute Assessment and Plan: Above goal but has not received his medications if today (6) Pacemaker: Code(s): Z95.0 - Presence of cardiac pacemaker Status: Acute Assessment and Plan: AV paced and appears to be functioning normally (7) Chest pain: Code(s): R07.9 - Chest pain, unspecified Status: Acute Assessment and Plan: As detailed above. Likely related to small non ST-elevation myocardial infarction. Ultimately, this patient should be transferred to [place]. All of his cardiac and vascular care and in fact most of his physicians are all in [place]. He had a recent catheterization performed a couple of weeks ago. Subjective Date/time seen: 08/06/20 11:36 Interval history: Patient was sent to the hospital by his home health nurse, who had been doing his dressing changes on his chronic right foot wound. Pt has history of TAVR from 2011, hx of cardiac stents x 4, cabg 2004, diabets mellitus on insulin, right femoropopliteal bypass done in may 2020 by vascular surgen at [facility] IN [place]. Pt has acute respiratory distress and transfer to IMU on BIPAP his oxygenation improved and currently now on 4 L oxygen Date of service 08/06/2020: Chest pain and shortness of breath has resolved. Feels okay today. Review of Systems Review of Systems: All systems reviewed & are unremarkable except as noted in HPI and below Constitutional: Constitutional: Denies fatigue, Denies headache(s) and Reports weakness Eyes: Eyes: Denies blurry vision ENT: Reports Normal hearing present, Denies headache(s) and Denies neck pain Cardiovascular: Cardiovascular: Reports chest pain and Reports dyspnea Respiratory: Respiratory: Reports dyspnea Gastrointestinal: Gastrointestinal: Denies abdominal pain Genitourinary: Genitourinary: Denies dysuria and Denies urinary frequency Musculoskeletal: Musculoskeletal: Denies neck pain Integumentary/Breasts: Skin/Breast: Denies dry skin and Reports wounds Neurologic: Reports Normal hearing present, Denies confusion, Denies headache(s) and Reports weakness Psychiatric: Psychiatric: Denies anxiety and Denies confusion Endocrine: Endocrine: Denies fatigue and Denies flushing Hematologic/Lymphatic: Hematologic/Lymphatic: Denies easy bleeding Allergic/Immunologic: Allergic/Immunologic: Denies GI upset with certain foods Exam Narrative: Exam Narrative: Awake alert appears to be in no acute distress at this point. Appears stated age Const: General: comfortable and no acut
[2020-08-06] MEDS: COLLAGENASE OINT 30 GM TUBE 1 APPLIC TOPICAL ×2 (11:37→21:20)
[2020-08-06] MEDS: SUCRALFATE 1 GM TABLET PO ×3 (11:47→21:19)
[2020-08-06 12:00] LABS: Glucose Point of Care 139 (65-105)
--- NOTE | 2020-08-06 12:55 | WPDPN ---
Progress Note: A&P Additional Plan Cellulitis with probable osteomyelitis of the right foot- -WBC has decreased to 4 from 11 yesterday. Erythema has helen fully resolved. - I recommended home health with wound care management with BID application of Santyl, enzymatic debridement, with 4x4 gauze, 4 kerlix roll and SERGO wrap with alf IV abx to treat probable osteomyelitis. - Gangrenous changes to the forefoot indicate that he will likely not heal an amputation at the foot level. He will follow up with his general/vascular sugeon in [place] once d/c from [facility]. If he fails to heal with Enzymatic debridement and IV abx he may require BKA/AKA depending on arterial perfusion at each level. - Continue with Sugical shoe for ambulation daily Stable for discharge per podiatry standpoint. Dr. Lopes Office number: [phone] Exam Extrem: Other: Wound the the right foot 2nd and 3rd digit amputation site is still fibrous in nature. No fluctuance noted. He does have dry eschar, gangrenous tissue present laterally to the forefoot. Nearly completely resolved erythema that was present to the lateral degits of the forefoot. Objective Data Vital Signs Vital Signs: Vital Signs - 24 hr 08/05/20 13:33 08/05/20 16:00 08/05/20 16:30 Temperature 36.2 C L 36.1 C L Pulse Rate 63 63 61 Respiratory Rate 24 H 26 H Blood Pressure 160/56 H 142/60 H Pulse Oximetry 99 96 94 08/05/20 19:54 08/05/20 20:00 08/05/20 20:16 Temperature 36.3 C L Pulse Rate 64 66 63 Respiratory Rate 20 Blood Pressure 118/50 L Pulse Oximetry 98 98 08/05/20 22:00 08/05/20 22:06 08/05/20 23:45 Temperature Pulse Rate 63 61 Respiratory Rate Blood Pressure Pulse Oximetry 95 95 08/05/20 23:52 08/06/20 00:00 08/06/20 02:00 Temperature 36.2 C L Pulse Rate 60 62 60 Respiratory Rate 18 Blood Pressure 111/43 L Pulse Oximetry 99 08/06/20 04:00 08/06/20 05:42 08/06/20 08:04 Temperature 36.1 C L Pulse Rate 65 60 68 Respiratory Rate 18 Blood Pressure 121/40 L Pulse Oximetry 100 08/06/20 08:24 08/06/20 08:25 08/06/20 08:30 Temperature 35.7 C L Pulse Rate 67 66 Respiratory Rate 22 H Blood Pressure 144/55 H Pulse Oximetry 93 98 98 08/06/20 10:00 Temperature Pulse Rate 60 Respiratory Rate Blood Pressure Pulse Oximetry Intake/Output Intake/Output: Intake & Output 08/03/20 08/04/20 08/05/20 08/06/20 23:59 23:59 23:59 23:59 Intake Total 1380 1580 Output Total 1400 200 Balance -20 1380 Meds/Results Medications: Active Medications Generic Name Dose Route Start Last Admin Trade Name Freq PRN Reason Stop Dose Admin Acetaminophen 650 mg 08/05/20 05:42 Acetaminophen 325 Mg Tablet PO Q4H PRN Mild Pain (1-3) or Fever Hydrocodone Bitart/Acetaminophen 1 tab 08/05/20 05:42 08/06/20 09:07 Hydrocodone/Acetaminophen (*Crx) 5-325 Mg Tablet PO 1 tab Q4H PRN Administration Moderate Pain (4-6) Albuterol 2.5 mg 08/05/20 15:15 Albuterol Sulfate Neb 2.5 Mg/0.5 Ml Inh INHALATION Q6HRT PRN Shortness Of Breath Aspirin 81 mg 08/05/20 08:00 08/06/20 08:01 Aspirin 81 Mg Chewable Tablet PO 81 mg DAILY@0800 SAILAJA Administration Atorvastatin Calcium 80 mg 08/05/20 09:00 08/06/20 08:02 Atorvastatin 40 Mg Tablet PO 80 mg DAILY SAILAJA Administration Carvedilol 25 mg 08/05/20 09:00 08/06/20 08:04 Carvedilol 25 Mg Tablet PO 25 mg Q12HR SAILAJA Administration Clonidine HCl 0.2 mg 08/05/20 09:00 08/06/20 08:04 Clonidine Hcl 0.2 Mg Tablet PO 0.2 mg Q12HR SAILAJA Administration Collagenase 1 applic 08/05/20 21:00 08/06/20 11:37 Collagenase Oint 30 Gm Tube TOPICAL 1 applic Q12HR SAILAJA Administration Dextrose 12.5 gm 08/05/20 05:42 Dextrose 50% 25 Gm/50 Ml Syringe IV PUSH PRN PRN Hypoglycemia Protocol Diphenhydramine HCl 25 mg 08/05/20 07:30 08/05/20 21:54 Diphenhydr
[2020-08-06] MEDS: SENNOSIDES 8.6 MG TABLET PO (13:05)
[2020-08-06] MEDS: INSULIN ASPART (*BKC) 100 UNITS/ML 18 UNITS SUB-Q (13:05)
[2020-08-06 16:42] LABS: Glucose Point of Care 70 (65-105)
[2020-08-06 18:27] LABS: Glucose Point of Care 223 (65-105)
[2020-08-06 20:27] LABS: Glucose Point of Care 211 (65-105)
[2020-08-06] MEDS: INSULIN GLARGINE (*BKC) 100 UNITS/ML 30 UNITS SUB-Q (21:20)
[2020-08-07] VITALS (20 sets, daily range): BP systolic 124–149; BP diastolic 49–57; PULSE 58–73; RESP 16–24; TEMP 36.3–36.8; O2SAT 94–99
[2020-08-07] MEDS: SUCRALFATE 1 GM TABLET PO ×3 (06:21→20:40)
[2020-08-07] MEDS: hydrALAZINE HCL 50 MG TABLET PO ×3 (06:21→21:25)
[2020-08-07] MEDS: CENTRAL LINE FLUSH 10 ML IV PUSH ×3 (06:21→21:25)
[2020-08-07 07:33] LABS: Glucose Point of Care 180 (65-105)
[2020-08-07] MEDS: ASPIRIN 81 MG CHEWABLE TABLET PO (09:27)
[2020-08-07] MEDS: carvediloL 25 MG TABLET PO ×2 (09:28→20:40)
[2020-08-07] MEDS: ATORVASTATIN 40 MG TABLET 80 MG PO (09:28)
[2020-08-07] MEDS: CHOLECALCIFEROL 1,000 UNITS TABLET 1000 UNITS PO (09:29)
[2020-08-07] MEDS: PANTOPRAZOLE 40 MG TABLET PO ×2 (09:29→17:44)
[2020-08-07] MEDS: cloNIDine HCL 0.2 MG TABLET PO ×2 (09:30→20:41)
[2020-08-07] MEDS: ISOSORBIDE MONONITRATE 30 MG TAB.ER.24H PO (09:30)
[2020-08-07] MEDS: SENNOSIDES 8.6 MG TABLET PO (09:30)
[2020-08-07] MEDS: TICAGRELOR 90 MG TABLET PO ×2 (09:31→20:40)
[2020-08-07] MEDS: HEPARIN SODIUM 5,000 UNITS/ML VIAL 5000 UNITS SUB-Q ×2 (09:32→20:41)
[2020-08-07] MEDS: FUROSEMIDE INJ 40 MG/4 ML VIAL 20 MG IV PUSH (09:32)
[2020-08-07] MEDS: polyethylene glycoL 3350 17 GM POWD.PACK PO (09:33)
--- NOTE | 2020-08-07 09:37 | PM.PNCARD ---
Progress Note: A&P Assessment and Plan (1) CAD (coronary artery disease): Code(s): I25.10 - Atherosclerotic heart disease of [place] coronary artery without angina pectoris Status: Chronic Assessment and Plan: Extensive cardiac history including bypass grafting about 15 years ago as well as multiple stents. Recent coronary angiogram in [place] with unknown details at this point. Continue his current coronary drug regimen change (2) CHF (congestive heart failure): Code(s): I50.9 - Heart failure, unspecified Status: Acute Assessment and Plan: Probably diastolic in etiology. DC IV furosemide. Start furosemide 40 mg p.o. daily. (3) History of aortic valve repair: Code(s): Z98.890 - Other specified postprocedural states; Z86.79 - Personal history of other diseases of the circulatory system Status: Acute Assessment and Plan: Status post TAVR in 2011. (4) PAD (peripheral artery disease): Code(s): I73.9 - Peripheral vascular disease, unspecified Status: Acute Assessment and Plan: Significant peripheral artery disease including previous right-sided fem-pop bypass. Vascular surgeon is in [place] also. (5) Hypertension associated with diabetes: Code(s): E11.59 - Type 2 diabetes mellitus with other circulatory complications; I15.2 - Hypertension secondary to endocrine disorders Status: Acute Assessment and Plan: Above goal but has not received his medications if today (6) Pacemaker: Code(s): Z95.0 - Presence of cardiac pacemaker Status: Acute Assessment and Plan: AV paced and appears to be functioning normally (7) Chest pain: Code(s): R07.9 - Chest pain, unspecified Status: Acute Assessment and Plan: As detailed above. Likely related to small non ST-elevation myocardial infarction. Ultimately, this patient should be transferred to [place]. All of his cardiac and vascular care and in fact most of his physicians are all in [place]. He had a recent catheterization performed a couple of weeks ago. Subjective Date/time seen: 08/07/20 09:37 Interval history: Patient was sent to the hospital by his home health nurse, who had been doing his dressing changes on his chronic right foot wound. Pt has history of TAVR from 2011, hx of cardiac stents x 4, cabg 2004, diabets mellitus on insulin, right femoropopliteal bypass done in may 2020 by vascular surgen at [facility] IN [place]. Pt has acute respiratory distress and transfer to IMU on BIPAP his oxygenation improved and currently now on 4 L oxygen Date of service 08/07/2020: Feels pretty well. No chest pain or shortness of breath. Review of Systems Review of Systems: All systems reviewed & are unremarkable except as noted in HPI and below Constitutional: Constitutional: Denies fatigue, Denies headache(s) and Reports weakness Eyes: Eyes: Denies blurry vision ENT: Reports Normal hearing present, Denies headache(s) and Denies neck pain Cardiovascular: Cardiovascular: Reports chest pain and Reports dyspnea Respiratory: Respiratory: Reports dyspnea Gastrointestinal: Gastrointestinal: Denies abdominal pain Genitourinary: Genitourinary: Denies dysuria and Denies urinary frequency Musculoskeletal: Musculoskeletal: Denies neck pain Integumentary/Breasts: Skin/Breast: Denies dry skin and Reports wounds Neurologic: Reports Normal hearing present, Denies confusion, Denies headache(s) and Reports weakness Psychiatric: Psychiatric: Denies anxiety and Denies confusion Endocrine: Endocrine: Denies fatigue and Denies flushing Hematologic/Lymphatic: Hematologic/Lymphatic: Denies easy bleeding Allergic/Immunologic: Allergic/Immunologic: Denies GI upset with certain foods Exam Narrative: Exam Narrative: Awake alert appears to be in no acute distress at this point. Appears stated age Const: General: comfortable and
--- NOTE | 2020-08-07 11:15 | PM.IMPN ---
Progress Note: A&P Assessment and Plan (1) Fever, unknown origin: Code(s): R50.9 - Fever, unspecified Status: Acute Assessment and Plan: Fever likely secondary to OM. Seen by ID, on iv cef and vancomycin for R foot cellulitis and new OM. Osteomyelitis involving base of fourth proximal phalanx with pathologic fracture. Osteomyelitis involving head of fourth metatarsal. 2. Deformities of the heads of the second and third metatarsals, which may be osteomyelitis or surgical change. Patient need to follow-up with his established vascular surgeon ID following (2) Cellulitis and abscess of foot: Code(s): L03.119 - Cellulitis of unspecified part of limb; L02.619 - Cutaneous abscess of unspecified foot Status: Acute Assessment and Plan: Continue IV antibiotics (3) Cellulitis: Qualifiers: Laterality: right Site of cellulitis: extremity Site of cellulitis of extremity: lower extremity Qualified Code(s): L03.115 - Cellulitis of right lower limb Code(s): L03.90 - Cellulitis, unspecified Status: Acute Assessment and Plan: Continue IV antibiotics (4) Chronic kidney disease: Code(s): N18.9 - Chronic kidney disease, unspecified Status: Acute Assessment and Plan: States he avoid nephrotoxic medication monitor CMP (5) Amputation of one or more toes: Code(s): S98.139A - Complete traumatic amputation of one unspecified lesser toe, initial encounter Status: Acute Assessment and Plan: Known history monitor (6) Pacemaker: Code(s): Z95.0 - Presence of cardiac pacemaker Status: Acute Assessment and Plan: Follow-up with established cardiology as outpatient (7) IDDM (insulin dependent diabetes mellitus): Code(s): E11.9 - Type 2 diabetes mellitus without complications; Z79.4 - intermediate (current) use of insulin Status: Chronic Assessment and Plan: Accuchecks, SSI, continue to monitor (8) Hypertension: Code(s): I10 - Essential (primary) hypertension Status: Acute Assessment and Plan: Chronic continue to monitor (9) CAD (coronary artery disease): Code(s): I25.10 - Atherosclerotic heart disease of [place] coronary artery without angina pectoris Status: Chronic Assessment and Plan: Seen by cardiology see evaluation. 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 Pt has history of TAVR from 2011, hx of cardiac stents x 4, cabg 2004, diabets mellitus on insulin, right femoropopliteal bypass done in may 2020 by vascular surgen at [facility] IN [place]. Pt has acute respiratory distress and transfer to IMU on BIPAP his oxygenation improved and currently now on 4 L oxygen Flarer following infectious disease following patient may need amputation pending final recommendation from soil conservation technician On 08/06/2020 I called [facility] and the patient was put on waiting list for transfer for continuity of care Patient denies fever headache chest pain shortness of breath I am seeing the patient for osteomyelitis Exam Narrative: Exam Narrative: Alert Chest positive crackles Abdomen nontender nondistended CVS S1 + S2 Lower extremity positive edema Objective Data Vital Signs Vital Signs: Vital Signs - 24 hr 08/06/20 12:00 08/06/20 13:00 08/06/20 16:45 Temperature 96.2 F L 97.1 F L Pulse Rate 61 60 60 Respiratory Rate 28 H 20 Blood Pressure 121/48 L 106/43 L Pulse Oximetry 99 99 97 08/06/20 18:00 08/06/20 20:00 08/06/20 21:19 Temperature 97.6 F Pulse Rate 60 63 6
[2020-08-07 11:54] LABS: Basophils Absolute Auto 0.1 K/mm3 (0.0-0.1); Basophils Percent Auto 1.4 % (0.2-1.2); Eosinophils Absolute Auto 0.4 K/mm3 (0-0.3); Eosinophils Percent Auto 7.9 % (0-4.4); Hematocrit 27.8 % (42.0-52.0); Immature Granulocyte Absolute 0.02 K/mm3 (0.00-0.031); Immature Granulocyte Percent A 0.4 % (0-0.5); Lymphocytes Absolute Auto 0.63 K/mm3 (0.9-3.2); Lymphocytes Percent Auto 12.2 % (18.3-44.2); Mean Corpuscular HGB Conc 32.4 g/dl (32-36); Mean Corpuscular Hemoglobin 27.3 pg (26-34); Mean Corpuscular Volume 84.2 fl (80-100); Mean Platelet Volume 9.4 fl (7.4-10.4); Monocytes Absolute Auto 0.7 K/mm3 (0.1-0.6); Monocytes Percent Auto 13.3 % (2.6-8.5); Neutrophils Absolute Auto 3.4 K/mm3 (1.3-6.7); Neutrophils Percent Auto 64.8 % (45.5-73.1); Platelet Count Result 279 k/mm3 (150-375); Red Cell Distribution Width 18.4 % (11.5-14.5); White Blood Count 5.2 K/mm3 (4.5-10.0)
[2020-08-07 12:05] LABS: Alanine Aminotransferase 21 U/L (4-50); Albumin Level 3.3 g/dL (3.5-5.1); Alkaline Phosphatase 80 U/L (38-126); Anion Gap 4 mmol/L (8-16); Aspartate Amino Transferase 23 U/L (17-59); Bilirubin,Total 0.2 mg/dL (0.2-1.3); Blood Urea Nitrogen 24 mg/dL (9-20); Calcium 8.7 mg/dL (8.4-10.2); Carbon Dioxide 27 mmol/L (22-30); Chloride 102 mmol/L (98-107); Estimated CRCL calculation 63 ml/min; Estimated Glomerular Filt Rate 60; Glucose 187 mg/dL (75-110); Potassium 4.3 mmol/L (3.4-5.0); Sodium 133 mmol/L (137-145)
[2020-08-07 12:55] LABS: Glucose Point of Care 188 (65-105)
[2020-08-07 17:01] LABS: Glucose Point of Care 135 (65-105)
[2020-08-07] MEDS: COLLAGENASE OINT 30 GM TUBE 1 APPLIC TOPICAL ×2 (17:39→20:41)
[2020-08-07] MEDS: NIFEdipine 30 MG TAB.ER.24 60 MG PO (17:40)
[2020-08-07] MEDS: INSULIN ASPART (*BKC) 100 UNITS/ML 6 UNITS SUB-Q (18:36)
[2020-08-07 20:03] LABS: Glucose Point of Care 176 (65-105)
[2020-08-07] MEDS: INSULIN GLARGINE (*BKC) 100 UNITS/ML 30 UNITS SUB-Q (20:42)
[2020-08-07 20:59] LABS: Vancomycin Trough 19.8 ug/mL (10.0-20.0)
[2020-08-07] MEDS: diphenhydrAMINE HCl CAP 25 MG CAPSULE PO (21:25)
[2020-08-07] MEDS: HYDROcodone/acetaminophen (*CRX) 5-325 MG TABLET 1 TAB PO (21:25)
[2020-08-07] MEDS: ALTEPLASE 2 MG VIAL (CATHFLO) IV PUSH ×2 (22:28)
[2020-08-08] VITALS (12 sets, daily range): BP systolic 115–151; BP diastolic 48–55; PULSE 60–62; RESP 16–18; TEMP 36.6; O2SAT 95–97
[2020-08-08 05:08] LABS: Estimated CRCL calculation 54 ml/min; Estimated Glomerular Filt Rate 50
[2020-08-08] MEDS: CENTRAL LINE FLUSH 10 ML IV PUSH ×3 (06:10→21:26)
[2020-08-08] MEDS: hydrALAZINE HCL 50 MG TABLET PO ×3 (06:10→21:26)
[2020-08-08] MEDS: SUCRALFATE 1 GM TABLET PO ×4 (06:10→21:25)
[2020-08-08 06:54] LABS: Glucose Point of Care 127 (65-105)
[2020-08-08] MEDS: SENNOSIDES 8.6 MG TABLET PO (08:33)
[2020-08-08] MEDS: ATORVASTATIN 40 MG TABLET 80 MG PO (08:33)
[2020-08-08] MEDS: TICAGRELOR 90 MG TABLET PO ×2 (08:33→21:26)
[2020-08-08] MEDS: PANTOPRAZOLE 40 MG TABLET PO ×2 (08:33→16:04)
[2020-08-08] MEDS: carvediloL 25 MG TABLET PO ×2 (08:34→21:24)
[2020-08-08] MEDS: FUROSEMIDE 40 MG TABLET PO (08:34)
[2020-08-08] MEDS: ISOSORBIDE MONONITRATE 30 MG TAB.ER.24H PO (08:34)
[2020-08-08] MEDS: ASPIRIN 81 MG CHEWABLE TABLET PO (08:34)
[2020-08-08] MEDS: CHOLECALCIFEROL 1,000 UNITS TABLET 1000 UNITS PO (08:35)
[2020-08-08] MEDS: HEPARIN SODIUM 5,000 UNITS/ML VIAL 5000 UNITS SUB-Q ×2 (08:35→21:25)
[2020-08-08] MEDS: NIFEdipine 30 MG TAB.ER.24 60 MG PO (08:35)
[2020-08-08] MEDS: cloNIDine HCL 0.2 MG TABLET PO ×2 (08:35→21:24)
[2020-08-08 08:44] LABS: Glucose Point of Care 243 (65-105)
[2020-08-08] MEDS: HYDROcodone/acetaminophen (*CRX) 5-325 MG TABLET 1 TAB PO ×2 (08:44→22:31)
[2020-08-08] MEDS: INSULIN ASPART (*BKC) 100 UNITS/ML 6 UNITS SUB-Q ×2 (08:45→16:11)
[2020-08-08] MEDS: INSULIN ASPART (*BKC) 100 UNITS/ML SUB-Q (08:45)
[2020-08-08] MEDS: polyethylene glycoL 3350 17 GM POWD.PACK PO (08:58)
--- NOTE | 2020-08-08 10:41 | PM.PNCARD ---
Progress Note: A&P Assessment and Plan (1) CAD (coronary artery disease): Code(s): I25.10 - Atherosclerotic heart disease of [place] coronary artery without angina pectoris Status: Chronic Assessment and Plan: Extensive cardiac history including bypass grafting about 15 years ago as well as multiple stents. Recent coronary angiogram in [place] with unknown details at this point. Continue his current coronary drug regimen change (2) CHF (congestive heart failure): Code(s): I50.9 - Heart failure, unspecified Status: Acute Assessment and Plan: Probably diastolic in etiology. Will change from furosemide to his home dose of torsemide 20 mg daily (3) History of aortic valve repair: Code(s): Z98.890 - Other specified postprocedural states; Z86.79 - Personal history of other diseases of the circulatory system Status: Acute Assessment and Plan: Status post TAVR in 2011. (4) PAD (peripheral artery disease): Code(s): I73.9 - Peripheral vascular disease, unspecified Status: Acute Assessment and Plan: Significant peripheral artery disease including previous right-sided fem-pop bypass. Vascular surgeon is in [place] also. (5) Hypertension associated with diabetes: Code(s): E11.59 - Type 2 diabetes mellitus with other circulatory complications; I15.2 - Hypertension secondary to endocrine disorders Status: Acute Assessment and Plan: Above goal but has not received his medications if today (6) Pacemaker: Code(s): Z95.0 - Presence of cardiac pacemaker Status: Acute Assessment and Plan: AV paced and appears to be functioning normally (7) Chest pain: Code(s): R07.9 - Chest pain, unspecified Status: Acute Assessment and Plan: As detailed above. Likely related to small non ST-elevation myocardial infarction. Ultimately, this patient should be transferred to [place]. All of his cardiac and vascular care and in fact most of his physicians are all in [place]. He had a recent catheterization performed a couple of weeks ago. Subjective Date/time seen: 08/08/20 10:41 Interval history: Patient was sent to the hospital by his home health nurse, who had been doing his dressing changes on his chronic right foot wound. Pt has history of TAVR from 2011, hx of cardiac stents x 4, cabg 2004, diabets mellitus on insulin, right femoropopliteal bypass done in may 2020 by vascular larissan at [facility] IN [place]. Pt has acute respiratory distress and transfer to IMU on BIPAP his oxygenation improved and currently now on 4 L oxygen Date of service 08/08/2020: Continues to feel better. No chest pain or shortness of breath Review of Systems Review of Systems: All systems reviewed & are unremarkable except as noted in HPI and below Constitutional: Constitutional: Denies fatigue, Denies headache(s) and Reports weakness Eyes: Eyes: Denies blurry vision ENT: Reports Normal hearing present, Denies headache(s) and Denies neck pain Cardiovascular: Cardiovascular: Reports chest pain and Reports dyspnea Respiratory: Respiratory: Reports dyspnea Gastrointestinal: Gastrointestinal: Denies abdominal pain Genitourinary: Genitourinary: Denies dysuria and Denies urinary frequency Musculoskeletal: Musculoskeletal: Denies neck pain Integumentary/Breasts: Skin/Breast: Denies dry skin and Reports wounds Neurologic: Reports Normal hearing present, Denies confusion, Denies headache(s) and Reports weakness Psychiatric: Psychiatric: Denies anxiety and Denies confusion Endocrine: Endocrine: Denies fatigue and Denies flushing Hematologic/Lymphatic: Hematologic/Lymphatic: Denies easy bleeding Allergic/Immunologic: Allergic/Immunologic: Denies GI upset with certain foods Exam Narrative: Exam Narrative: Awake alert appears to be in no acute distress at this point. Appears stated age Const: Ge
[2020-08-08 10:55] LABS: Basophils Absolute Auto 0.1 K/mm3 (0.0-0.1); Basophils Percent Auto 1.2 % (0.2-1.2); Eosinophils Absolute Auto 0.4 K/mm3 (0-0.3); Eosinophils Percent Auto 6.2 % (0-4.4); Hematocrit 33.6 % (42.0-52.0); Hemoglobin 10.9 g/dL (14.0-18.0); Immature Granulocyte Absolute 0.03 K/mm3 (0.00-0.031); Immature Granulocyte Percent A 0.5 % (0-0.5); Lymphocytes Absolute Auto 0.62 K/mm3 (0.9-3.2); Lymphocytes Percent Auto 10.7 % (18.3-44.2); Mean Corpuscular HGB Conc 32.4 g/dl (32-36); Mean Corpuscular Hemoglobin 27.3 pg (26-34); Mean Platelet Volume 9.4 fl (7.4-10.4); Monocytes Absolute Auto 0.5 K/mm3 (0.1-0.6); Monocytes Percent Auto 8.4 % (2.6-8.5); Neutrophils Absolute Auto 4.2 K/mm3 (1.3-6.7); Platelet Count Result 340 k/mm3 (150-375); Red Cell Distribution Width 18.5 % (11.5-14.5); White Blood Count 5.8 K/mm3 (4.5-10.0)
--- NOTE | 2020-08-08 11:17 | PM.IMPN ---
Progress Note: A&P Assessment and Plan (1) Fever, unknown origin: Code(s): R50.9 - Fever, unspecified Status: Acute Assessment and Plan: Fever likely secondary to OM. Seen by ID, on iv cef and vancomycin for R foot cellulitis and new OM. Osteomyelitis involving base of fourth proximal phalanx with pathologic fracture. Osteomyelitis involving head of fourth metatarsal. Deformities of the heads of the second and third metatarsals, which may be osteomyelitis or surgical change. Patient need to follow-up with his established vascular surgeon ID following Pending acceptance of transfer (2) Cellulitis and abscess of foot: Code(s): L03.119 - Cellulitis of unspecified part of limb; L02.619 - Cutaneous abscess of unspecified foot Status: Acute Assessment and Plan: Continue IV antibiotics patient has a PICC line (3) Cellulitis: Qualifiers: Laterality: right Site of cellulitis: extremity Site of cellulitis of extremity: lower extremity Qualified Code(s): L03.115 - Cellulitis of right lower limb Code(s): L03.90 - Cellulitis, unspecified Status: Acute Assessment and Plan: Continue IV antibiotics (4) Chronic kidney disease: Code(s): N18.9 - Chronic kidney disease, unspecified Status: Acute Assessment and Plan: States he avoid nephrotoxic medication monitor CMP (5) Amputation of one or more toes: Code(s): S98.139A - Complete traumatic amputation of one unspecified lesser toe, initial encounter Status: Acute Assessment and Plan: Known history monitor (6) Pacemaker: Code(s): Z95.0 - Presence of cardiac pacemaker Status: Acute Assessment and Plan: Follow-up with established cardiology as outpatient (7) IDDM (insulin dependent diabetes mellitus): Code(s): E11.9 - Type 2 diabetes mellitus without complications; Z79.4 - manager terminal (current) use of insulin Status: Chronic Assessment and Plan: Accuchecks, SSI, continue to monitor (8) Hypertension: Code(s): I10 - Essential (primary) hypertension Status: Acute Assessment and Plan: Chronic continue to monitor (9) CAD (coronary artery disease): Code(s): I25.10 - Atherosclerotic heart disease of [place] coronary artery without angina pectoris Status: Chronic Assessment and Plan: Seen by cardiology see evaluation. 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 Pt has history of TAVR from 2011, hx of cardiac stents x 4, cabg 2004, diabets mellitus on insulin, right femoropopliteal bypass done in may 2020 by vascular surgen at [facility] IN [place]. Pt has acute respiratory distress and transfer to IMU on BIPAP his oxygenation improved and currently now on 4 L oxygen Audio Visual Manager following infectious disease following patient may need amputation pending final recommendation from peer tutor On 08/07/2020 I called [facility] and the patient was put on waiting list for transfer for continuity of care 08/08/2020 Patient feels better today Cardiology recommendation appreciated Ultimately patient will need evaluation by cardiology at [facility] as per cardiology for continue active care Pending availability of the bed at [facility] Patient agreeable on transfer Responding well to IV antibiotics Patient denies fever headache chest pain shortness of breath I am seeing the patient for osteomyelitis Exam Narrative: Exam Narrative: Alert Chest positive crackles Abdomen nontender nondistended CVS S1 + S2 Lower ext
[2020-08-08 11:52] LABS: Alanine Aminotransferase 20 U/L (4-50); Albumin Level 3.3 g/dL (3.5-5.1); Alkaline Phosphatase 76 U/L (38-126); Anion Gap 3 mmol/L (8-16); Aspartate Amino Transferase 24 U/L (17-59); Bilirubin,Total < 0.1 mg/dL (0.2-1.3); Blood Urea Nitrogen 25 mg/dL (9-20); Calcium 9.2 mg/dL (8.4-10.2); Carbon Dioxide 30 mmol/L (22-30); Chloride 102 mmol/L (98-107); Estimated CRCL calculation 54 ml/min; Estimated Glomerular Filt Rate 50; Glucose 121 mg/dL (75-110); Potassium 4.4 mmol/L (3.4-5.0); Sodium 135 mmol/L (137-145)
[2020-08-08 12:01] LABS: Glucose Point of Care 108 (65-105)
[2020-08-08] MEDS: COLLAGENASE OINT 30 GM TUBE 1 APPLIC TOPICAL ×2 (12:15→21:25)
[2020-08-08 16:19] LABS: Glucose Point of Care 138 (65-105)
--- NOTE | 2020-08-08 17:46 | PM.DS ---
DS: Admitting Diagnosis Admitting Diagnosis Admitting Diagnosis: Shortness of breath chest tightness DS: Discharge Diagnosis Discharge Diagnosis (1) Fever, unknown origin: Code(s): R50.9 - Fever, unspecified Status: Acute Assessment and Plan: Fever likely secondary to OM. Seen by ID, on iv cef and vancomycin for R foot cellulitis and new OM. Osteomyelitis involving base of fourth proximal phalanx with pathologic fracture. Osteomyelitis involving head of fourth metatarsal. Deformities of the heads of the second and third metatarsals, which may be osteomyelitis or surgical change. Patient need to follow-up with his established vascular surgeon ID following Transfer was accepted (2) Cellulitis and abscess of foot: Code(s): L03.119 - Cellulitis of unspecified part of limb; L02.619 - Cutaneous abscess of unspecified foot Status: Acute Assessment and Plan: Continue IV antibiotics patient has a PICC line (3) Cellulitis: Qualifiers: Laterality: right Site of cellulitis: extremity Site of cellulitis of extremity: lower extremity Qualified Code(s): L03.115 - Cellulitis of right lower limb Code(s): L03.90 - Cellulitis, unspecified Status: Acute Assessment and Plan: Continue IV antibiotics (4) Chronic kidney disease: Code(s): N18.9 - Chronic kidney disease, unspecified Status: Acute Assessment and Plan: States he avoid nephrotoxic medication monitor CMP (5) Amputation of one or more toes: Code(s): S98.139A - Complete traumatic amputation of one unspecified lesser toe, initial encounter Status: Acute Assessment and Plan: Known history monitor (6) Pacemaker: Code(s): Z95.0 - Presence of cardiac pacemaker Status: Acute Assessment and Plan: Follow-up with established cardiology as outpatient (7) IDDM (insulin dependent diabetes mellitus): Code(s): E11.9 - Type 2 diabetes mellitus without complications; Z79.4 - intermediate (current) use of insulin Status: Chronic Assessment and Plan: Accuchecks, SSI, continue to monitor (8) Hypertension: Code(s): I10 - Essential (primary) hypertension Status: Acute Assessment and Plan: Chronic continue to monitor (9) CAD (coronary artery disease): Code(s): I25.10 - Atherosclerotic heart disease of [place] coronary artery without angina pectoris Status: Chronic Assessment and Plan: Seen by cardiology see evaluation. Cardiology benefits from transfer back to his doctors in [place] DS: Summary Hospital Course Hospital Course: Patient was admitted to the hospital with shortness of breath chest tightness also patient was having elevated troponin cardiology was consulted most likely patient have NSTEMI probably type 2 related to demand ischemia but patient needed further workup patient has extensive workup at [facility] patient will be transferred to facility for further workup also patient was found to have osteomyelitis of the foot treated with IV antibiotic ID was consulted patient may need debridement and further surgical workup needed patient has his medical record at the [facility] and plan is to transfer patient Time Spent with Patient Time attestation: Total time spent providing and/or coordinating discharge services: Exam Narrative: Exam Narrative: Alert Chest no wheeze crackles Abdomen nontender nondistended CVS S1 + S2 Lower extremity edema DS: Data Data Completed and Pending Labs on day of discharge: Labs from last 24 hours 08/08/20 08/08/20 08/08/20 15:57 11:55 11:24 WBC RBC Hgb Hct MCV MCH MCHC RDW Plt Count MPV Immature Gran % (Auto) Neut % (Auto) Lymph % (Auto) Jay % (Auto) Eos % (Auto) Baso % (Auto) Lymph # (Auto) Jay # (Auto) Eos # (Auto) Baso # (Auto) Abs Immat Gran (auto) Absolute N
[2020-08-08 21:22] LABS: Glucose Point of Care 174 (65-105)
[2020-08-08] MEDS: INSULIN GLARGINE (*BKC) 100 UNITS/ML 30 UNITS SUB-Q (21:28)
[2020-08-09] VITALS: PULSE 60
[2020-08-09 00:05] VITALS: BP 140/55; PULSE 59; RESP 19; TEMP 36.5; O2SAT 99
[2020-08-09 04:00] VITALS: BP 150/58; PULSE 60; RESP 16; TEMP 36.1; O2SAT 99
[2020-08-09] MEDS: hydrALAZINE HCL 50 MG TABLET PO (06:06)
[2020-08-09] MEDS: CENTRAL LINE FLUSH 10 ML IV PUSH (06:06)
[2020-08-09] MEDS: SUCRALFATE 1 GM TABLET PO (06:06)
[2020-08-09 07:20] LABS: Glucose Point of Care 159 (65-105)
[2020-08-09] MEDS: INSULIN ASPART (*BKC) 100 UNITS/ML 6 UNITS SUB-Q (07:42)
[2020-08-09] MEDS: COLLAGENASE OINT 30 GM TUBE 1 APPLIC TOPICAL (07:43)
[2020-08-09 07:47] VITALS: PULSE 60
[2020-08-09] MEDS: ASPIRIN 81 MG CHEWABLE TABLET PO (07:47)
[2020-08-09] MEDS: ISOSORBIDE MONONITRATE 30 MG TAB.ER.24H PO (07:47)
[2020-08-09] MEDS: TICAGRELOR 90 MG TABLET PO (07:47)
[2020-08-09] MEDS: carvediloL 25 MG TABLET PO (07:47)
[2020-08-09] MEDS: cloNIDine HCL 0.2 MG TABLET PO (07:48)
[2020-08-09] MEDS: TORSEMIDE 20 MG TABLET PO (07:48)
[2020-08-09] MEDS: HEPARIN SODIUM 5,000 UNITS/ML VIAL 5000 UNITS SUB-Q (07:48)
[2020-08-09] MEDS: ATORVASTATIN 40 MG TABLET 80 MG PO (07:48)
[2020-08-09] MEDS: CHOLECALCIFEROL 1,000 UNITS TABLET 1000 UNITS PO (07:48)
[2020-08-09] MEDS: PANTOPRAZOLE 40 MG TABLET PO (07:48)
[2020-08-09] MEDS: NIFEdipine 30 MG TAB.ER.24 60 MG PO (07:48)
[2020-08-09] MEDS: SENNOSIDES 8.6 MG TABLET PO (07:49)
[2020-08-09 08:00] VITALS: BP 158/68; PULSE 62; PULSE 63; RESP 20; TEMP 36.6; O2SAT 98
--- NOTE | 2020-08-09 10:31 | PM.PNCARD ---
Progress Note: A&P Assessment and Plan (1) CAD (coronary artery disease): Code(s): I25.10 - Atherosclerotic heart disease of [place] coronary artery without angina pectoris Status: Chronic Assessment and Plan: Extensive cardiac history including bypass grafting about 15 years ago as well as multiple stents. Recent coronary angiogram in [facility] with unknown details at this point. Continue his current coronary drug regimen change (2) CHF (congestive heart failure): Code(s): I50.9 - Heart failure, unspecified Status: Acute Assessment and Plan: Probably diastolic in etiology. Continue torsemide (3) History of aortic valve repair: Code(s): Z98.890 - Other specified postprocedural states; Z86.79 - Personal history of other diseases of the circulatory system Status: Acute Assessment and Plan: Status post TAVR in 2011. (4) PAD (peripheral artery disease): Code(s): I73.9 - Peripheral vascular disease, unspecified Status: Acute Assessment and Plan: Significant peripheral artery disease including previous right-sided fem-pop bypass. Vascular surgeon is in [facility] also. (5) Hypertension associated with diabetes: Code(s): E11.59 - Type 2 diabetes mellitus with other circulatory complications; I15.2 - Hypertension secondary to endocrine disorders Status: Acute Assessment and Plan: Above goal but has not received his medications if today (6) Pacemaker: Code(s): Z95.0 - Presence of cardiac pacemaker Status: Acute Assessment and Plan: AV paced and appears to be functioning normally (7) Chest pain: Code(s): R07.9 - Chest pain, unspecified Status: Acute Assessment and Plan: As detailed above. Likely related to small non ST-elevation myocardial infarction. Ultimately, this patient should be transferred to [facility]. All of his cardiac and vascular care and in fact most of his physicians are all in [facility]. He had a recent catheterization performed a couple of weeks ago. Subjective Date/time seen: 08/09/20 10:31 Interval history: Patient was sent to the hospital by his home health nurse, who had been doing his dressing changes on his chronic right foot wound. Pt has history of TAVR from 2011, hx of cardiac stents x 4, cabg 2004, diabets mellitus on insulin, right femoropopliteal bypass done in may 2020 by vascular surgen at [facility] [place]. Pt has acute respiratory distress and transfer to IMU on BIPAP his oxygenation improved and currently now on 4 L oxygen Date of service 08/09/2020: Continues to feel better. No chest pain or shortness of breath. Transferring to [facility] today Review of Systems Review of Systems: All systems reviewed & are unremarkable except as noted in HPI and below Constitutional: Constitutional: Denies fatigue, Denies headache(s) and Reports weakness Eyes: Eyes: Denies blurry vision ENT: Reports Normal hearing present, Denies headache(s) and Denies neck pain Cardiovascular: Cardiovascular: Reports chest pain and Reports dyspnea Respiratory: Respiratory: Reports dyspnea Gastrointestinal: Gastrointestinal: Denies abdominal pain Genitourinary: Genitourinary: Denies dysuria and Denies urinary frequency Musculoskeletal: Musculoskeletal: Denies neck pain Integumentary/Breasts: Skin/Breast: Denies dry skin and Reports wounds Neurologic: Reports Normal hearing present, Denies confusion, Denies headache(s) and Reports weakness Psychiatric: Psychiatric: Denies anxiety and Denies confusion Endocrine: Endocrine: Denies fatigue and Denies flushing Hematologic/Lymphatic: Hematologic/Lymphatic: Denies easy bleeding Allergic/Immunologic: Allergic/Immunologic: Denies GI upset with certain foods Exam Narrative: Exam Narrative: Awake alert appears to be in no acute distress at this point. Appears stated age Const: General: comfor
== END 2020-08-09 09:45 | disposition short-term general hospital (02) | DRG 637 ==
LOC: ANHIMU 13:11 → ANH2MED 08-13 14:08 → ANHIMU 08-13 14:08
PROVIDERS: Family Medicine; Admitting Provider Internal Medicine; PCP Internal Medicine; Visit Provider Internal Medicine
DX: E11.69 Type 2 diabetes mellitus with other specified complication (principal); I21.A1 Myocardial infarction type 2; J96.01 Acute respiratory failure with hypoxia; I50.31 Acute diastolic (congestive) heart failure; M86.171 Other acute osteomyelitis, right ankle and foot; E11.52 Type 2 diabetes mellitus with diabetic peripheral angiopathy with gangrene; I96 Gangrene, not elsewhere classified; L03.115 Cellulitis of right lower limb; M84.477A Pathological fracture, right toe(s), initial encounter for fracture; I13.0 Hypertensive heart and chronic kidney disease with heart failure and stage 1 through stage 4 chronic kidney disease, or unspecified chronic kidney disease; E11.22 Type 2 diabetes mellitus with diabetic chronic kidney disease; N18.30 Chronic kidney disease, stage 3 unspecified; E11.621 Type 2 diabetes mellitus with foot ulcer; E11.628 Type 2 diabetes mellitus with other skin complications; K21.9 Gastro-esophageal reflux disease without esophagitis; Z95.0 Presence of cardiac pacemaker; Z79.4 Long term (current) use of insulin; Z95.5 Presence of coronary angioplasty implant and graft; Z95.1 Presence of aortocoronary bypass graft; Z87.891 Personal history of nicotine dependence; Z89.421 Acquired absence of other right toe(s); E66.9 Obesity, unspecified; Z68.33 Body mass index [BMI] 33.0-33.9, adult; Z87.11 Personal history of peptic ulcer disease
CPT/HCPCS: 36415; 36569; 36600; 71045; 73630; 78315; 80048; 80053; 80202; 81001; 82565; 82805; 82948; 83036; 83605; 83735; 83880; 84484; 85025; 85027; 85652; 87040; 93005; 93306; 93923; 94002; 94640; 97110; 97161; 97165; 97530; A9270; A9561; C1751; J0692; J1644; J1815; J1940; J2997; J3370

== ENCOUNTER 2020-08-16 23:18 | Observation (INO) | payer MEDICARE, MEDICAID, SELFPAY ==
--- NOTE | ~2020-08-16 | XR_ITS ---
EXAMINATION: XR chest 1V portable INDICATION: Shortness of breath TECHNIQUE: Portable AP chest at 0002 hours COMPARISON: 08/06/2020 FINDINGS: The lungs are free of acute opacities. There is no pleural effusion or pneumothorax. Cardio megaly is noted. A triple lead cardiac pacemaker of the left chest wall ends with leads in expected l ocations. There are changes of prior cardiac surgery. A right upper extremity PICC ends with its tip in the proximal superior vena cava. There are surgical clips in the right neck. IMPRESSION: 1. Cardiomegaly. Reviewed, dictated and finalized at location A. IMPRESSION: 1. Cardiomegaly.
[2020-08-16 23:20] VITALS: BP 132/70; PULSE 70; RESP 20; TEMP 37; O2SAT 96
[2020-08-16 23:47] LABS: Add Urine Microscopic? YES; Appearance Urine Clear (Clear); Bilirubin Urine Negative (Negative); Blood Urine Negative (Negative); Color Urine Yellow (Yellow); Glucose Urine UA 1+ (Negative); Ketones Urine Negative (Negative); Leukocyte Esterase Ur Negative LEU/UL (Negative); Nitrate Urine Negative (Negative); Protein Urine 1+ (Negative); Urobilinogen Urine 0.2 mg/dL (0.2-1.0)
[2020-08-16 23:57] LABS: Amorphous Sediment Urine Few; Granular Casts Urine 2+ /lpf; Squamous Epithelial Cell Urine Occasional /hpf (Few)
[2020-08-17 00:17] LABS: Basophils Absolute Auto 0.09 K/mm3 (0.00-0.10); Basophils Percent Auto 1.1 % (0.0-1.0); Eosinophils Absolute Auto 0.64 K/mm3 (0.02-0.50); Eosinophils Percent Auto 7.6 % (1.0-6.0); Hematocrit 29.7 % (37.0-46.0); Hemoglobin 9.6 g/dL (12.4-15.3); Immature Granulocyte Absolute 0.03 K/mm3 (0.00-0.00); Immature Granulocyte Percent A 0.4 % (0.0-0.0); Lymphocytes Absolute Auto 0.72 K/mm3 (1.10-4.50); Lymphocytes Percent Auto 8.5 % (18.0-42.0); Mean Corpuscular HGB Conc 32.3 g/dL (32.0-36.0); Mean Corpuscular Hemoglobin 27.3 pg (27.0-31.0); Mean Corpuscular Volume 84.4 fL (78.0-102.0); Mean Platelet Volume 9.8 fl (8.7-11.0); Monocytes Absolute Auto 1.04 K/mm3 (0.10-0.90); Monocytes Percent Auto 12.3 % (2.0-11.0); Neutrophils Percent Auto 70.1 % (50.0-70.0); Platelet Count Result 363 K/mm3 (150-420); Red Blood Count 3.52 M/mm3 (4.70-6.10); Red Cell Distribution Width 18.5 % (11.6-14.4); White Blood Count 8.5 K/mm3 (4.8-10.8)
--- NOTE | 2020-08-17 00:20 | ED.CHESTPAIN ---
HPI - Chest Pain General Chief Complaint: Shortness of Breath/Dyspnea Stated Complaint: SHORTNESS OF BREATHE Source: patient Mode of arrival: EMS Limitations: no limitations History of Present Illness HPI narrative: Pt has beenin and out of hospital over last few months. This started when pt has cp and SOB about 2 months ago. He was seen by the cardiac team, and it was determined that nothing more could be done. He was evala nd treated by kirk velazco for this pain. He then had an infection of his right foot he was admitted last week, was transferred to echo, and eventually to [facility]. He was given pic line with multiple time of day antibiotic. 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 [employer]ICER and CABG Onset (ago): month(s) Timing of current episode: episodic Onset: during rest Pain location: substernal Pain radiation: right arm and left arm Severity: moderate Quality: tightness Relieving factors: nothing Exacerbating factors: nothing Treatment prior to arrival: aspirin, nitroglycerin and oxygen Risk Factors Coronary artery disease risk factors: diabetes, hyperlipidemia, hypertension and family history of CAD before age 50 Related Data Home Medications Medication Instructions Recorded Confirmed Basaglar KwikPen U-100 Insulin 20 unit SUBCUT HS 03/27/19 09/03/20 Brilinta 90 mg PO BID 03/27/19 09/03/20 insulin aspart U-100 [Novolog See Rx Instructions .ROUTE .COMPLEX 03/27/19 09/03/20 Flexpen U-100 Insulin] isosorbide mononitrate 30 mg PO DAILY 04/27/20 09/03/20 Prolia 60 mg SUBCUT [id number] 07/16/20 09/03/20 hydralazine 50 mg PO TID 08/02/20 09/03/20 nifedipine [Adalat CC] 60 mg PO DAILY 08/02/20 09/03/20 Adult Low Dose Aspirin 81 mg PO DAILY 08/05/20 09/03/20 Allergy (diphenhydramine) 25 mg PO Q8-10H PRN 08/05/20 09/03/20 Miralax 17 g PO DAILY PRN 08/05/20 09/03/20 acetaminophen 650 mg PO Q8-10H PRN 08/05/20 09/03/20 carvedilol 50 mg PO BID 08/05/20 09/03/20 cholecalciferol (vitamin D3) 1,000 unit PO DAILY 08/05/20 09/03/20 pantoprazole 40 mg PO BID 08/05/20 09/03/20 senna 8.6 mg PO DAILY 08/05/20 09/03/20 ceftazidime 2 g IV BIDAC 08/16/20 09/04/20 daptomycin 500 mg IV DAILY 08/16/20 09/04/20 hydrocodone-acetaminophen See Rx Instructions .ROUTE .COMPLEX 08/16/20 09/03/20 metronidazole [Flagyl] 500 mg PO Q8H 08/16/20 09/03/20 atorvastatin 80 mg PO DAILY 09/03/20 09/03/20 bumetanide 1 mg PO DAILY 09/03/20 09/03/20 clonidine HCl 0.2 mg PO BID 09/03/20 09/03/20 denosumab [Prolia] See Rx Instructions .ROUTE .COMPLEX 09/03/20 09/03/20 gabapentin 300 mg PO BID 09/03/20 09/03/20 hydrochlorothiazide 25 mg PO DAILY 09/03/20 09/03/20 lisinopril 40 mg PO DAILY 09/03/20 09/03/20 magnesium oxide 400 mg PO DAILY 09/03/20 09/03/20 Allergies Allergy/AdvReac Type Severity Reaction Status Date / Time amoxicillin [From Augmentin] Allergy Rash Verified 09/03/20 17:32 clavulanic acid Allergy Rash Verified 09/03/20 17:32 [From Augmentin] metformin Allergy Other Verified 09/03/20 17:32 Review of Systems Review of Systems: All systems reviewed & are unremarkable except as noted in HPI and below PMFSH Past Medical History Medical History Aortic valve disease CAD (coronary artery disease) Heart disease Hypertension Hypertension associated with diabetes IDDM (insulin dependent diabetes mellitus) Pacemaker PAD (peripheral artery disease) 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 Surgical History Surgical History H/O left inguinal hernia repair H/O parathyroidectomy History of aortic valve repair History of coronary artery stent placement S/P CABG x 6 Family History Family History Mother Hypertension Father Heart disease Mitral valve replaced Sibling Agustin
[2020-08-17 00:39] LABS: Alanine Aminotransferase 17 U/L (16-63); Albumin Level 2.9 g/dL (3.4-5.0); Alkaline Phosphatase 101 U/L (46-116); Anion Gap 12 mmol/L (8-16); Aspartate Amino Transferase 13 U/L (15-37); Bilirubin,Total 0.2 mg/dL (0.00-1.00); Blood Urea Nitrogen 62 mg/dL (7-18); Calcium 9.3 mg/dL (8.5-10.1); Carbon Dioxide 26 mmol/L (21-32); Chloride 98 mmol/L (98-108); Estimated CRCL calculation 23 ml/min; Estimated Glomerular Filt Rate 19; Glucose 194 mg/dL (70-99); Osmolality Calculated 304 mOsm/kg (285-295); Potassium 3.2 mmol/L (3.5-5.1); Sodium 136 mmol/L (136-145)
[2020-08-17 00:41] LABS: Troponin I 29.3 ng/L (0.00-60.4)
[2020-08-17 01:36] VITALS: BP 152/70; PULSE 70; RESP 20; TEMP 36.1; O2SAT 96
[2020-08-17 02:04] VITALS: BMI 31.8
[2020-08-17 02:10] VITALS: PULSE 64; RESP 18; O2SAT 95
--- NOTE | 2020-08-17 02:12 | PC.NURSE ---
Called Dr. Hakw to let her know that pt requested oxygen at 2 liters which is what he uses at home. She was with another pt, so message was left with DARCI Mcgarry.
[2020-08-17 03:43] LABS: Troponin I 32.7 ng/L (0.00-60.4)
[2020-08-17 04:00] VITALS: PULSE 60; PULSE 62; RESP 18; O2SAT 95
[2020-08-17 07:00] LABS: Troponin I 35.7 ng/L (0.00-60.4)
[2020-08-17 08:00] VITALS: BP 142/56; PULSE 63; RESP 18; TEMP 37.2; O2SAT 98
[2020-08-17 08:36] LABS: Glucose Point of Care 169 mg/dl (65-105)
--- NOTE | 2020-08-17 10:48 | PM.SD2 ---
Same Day Admit/Disch: HPI History of Present Illness Chief complaint: SHORTNESS OF BREATHE Narrative: Justin Peguero is a 69 year old male that presented to our hospital with chest pain shortness of breath. Patient has a past medical history of aortic valve disease, CAD,, heart disease, aortic valve repair, coronary artery stent placement, hypertension, diabetes, pacemaker, PAD, peptic ulcer with hemorrhage and CABG x6. According to patient yesterday he started experiencing shortness of breath while at rest and on exertion along with chest pain. He also noted that the chest pain radiated to both upper extremities bilateral. Patient noted that while at home he did take four baby aspirin and three nitros with no relief. Patient noted that since he has been admitted he has not experienced any shortness of breath or chest pain. WBC is 8.5, hemoglobin 9.6, hematocrit 2 9.7. Sodium 136 potassium 3.2 troponin negative x2. Patient notes that since admission his breathing has improved and he no longer experienced any chest pains. Patient agrees that he is ready for discharge. The patient denies SOB, CP, palpitation, extremity numbness, lightheadedness, dizziness, constipation, diarrhea, chills, or fever. \ Disposition Home with self-care Observation 60 minutes PMFSH Past Medical History Medical History Aortic valve disease CAD (coronary artery disease) Heart disease Hypertension Hypertension associated with diabetes IDDM (insulin dependent diabetes mellitus) Pacemaker PAD (peripheral artery disease) 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 Surgical History Surgical History H/O left inguinal hernia repair H/O parathyroidectomy History of aortic valve repair History of coronary artery stent placement S/P CABG x 6 Family History Family History Mother Hypertension Father Heart disease Mitral valve replaced Sibling Heart disease Sibling Heart disease Sibling Heart disease Sibling Heart disease Social History Social History Smoking status: Former smoker Tobacco type: cigars Second hand tobacco smoke exposure: No Additional smoking assessment comments: STOPPED SMOKING 1975 Alcohol intake: former Drinks per week: 30 Substance use: former Substance use type: marijuana Last use: 1959 Gender identity (if verbalized by the patient): Male Spiritual care concerns: No Same Day Admit/Disch: Med Pre-admit Medications Home Medications Medication Instructions Recorded Confirmed Type Basaglar KwikPen U-100 Insulin 20 unit SUBCUT HS 03/27/19 08/16/20 History Brilinta 90 mg PO DAILY 03/27/19 08/16/20 History clonidine HCl 0.2 mg PO BID 03/27/19 08/16/20 History insulin aspart U-100 [Novolog See Rx Instructions .ROUTE .COMPLEX 03/27/19 08/16/20 History Flexpen U-100 Insulin] Jardiance 10 mg PO DAILY 04/27/20 08/16/20 History isosorbide mononitrate 30 mg PO DAILY 04/27/20 08/16/20 History Prolia 60 mg SUBCUT [id number] 07/16/20 08/16/20 History hydralazine 50 mg PO TID 08/02/20 08/16/20 History nifedipine [Adalat CC] 60 mg PO DAILY 08/02/20 08/16/20 History Adult Low Dose Aspirin 81 mg PO DAILY 08/05/20 08/16/20 History Allergy (diphenhydramine) 25 mg PO Q8-10H PRN 08/05/20 08/16/20 History Miralax 17 g PO DAILY PRN 08/05/20 08/16/20 History acetaminophen 650 mg PO Q8-10H PRN 08/05/20 08/16/20 History carvedilol 50 mg PO BID 08/05/20 08/16/20 History cholecalciferol (vitamin D3) 1,000 unit PO DAILY 08/05/20 08/16/20 History pantoprazole 40 mg PO BID 08/05/20 08/16/20 History senna 8.6 mg PO DAILY 08/05/20 08/16/20 History sucralfate 1 g PO Q4-6H 08/05/20 08/16/20 History ceftazidime 2 g IV BIDAC 08/16/20 08/16/20 History daptomycin 500 mg IV DAILY 08/16
[2020-08-17 12:00] VITALS: BP 154/65; PULSE 65; RESP 18; TEMP 36.1; O2SAT 98
[2020-08-17 12:15] LABS: Glucose Point of Care 237 mg/dl (65-105)
--- NOTE | 2020-08-17 13:53 | PC.NURSE ---
Pt discharged to home with all personal belongings. VS stable. Pt given discharge instructions and instructed to contact his PCP on Wednesday. Pt verbalized understanding of discharge instruction. Pt taken to main entrance in a wheel chair by RN.
--- NOTE | 2020-08-19 11:27 | PC.NURSE ---
Pt states he received and understood his discharge instructions Pt also states you have an excellent hospital and have given me excellent care for years .
== END 2020-08-17 12:30 | disposition home or self-care (01) ==
LOC: CHSED 23:20 → CHS2ND 08-17 09:45
PROVIDERS: Admitting Provider Emergency Medicine; Emergency Provider Emergency Medicine; Visit Provider Emergency Medicine
DX: R07.9 Chest pain, unspecified (principal); I25.10 Atherosclerotic heart disease of native coronary artery without angina pectoris; I73.9 Peripheral vascular disease, unspecified; I12.9 Hypertensive chronic kidney disease with stage 1 through stage 4 chronic kidney disease, or unspecified chronic kidney disease; E11.22 Type 2 diabetes mellitus with diabetic chronic kidney disease; N18.9 Chronic kidney disease, unspecified; F41.9 Anxiety disorder, unspecified; Z89.029 Acquired absence of unspecified finger(s); Z95.0 Presence of cardiac pacemaker; Z95.1 Presence of aortocoronary bypass graft; Z87.891 Personal history of nicotine dependence; Z86.79 Personal history of other diseases of the circulatory system; Z79.4 Long term (current) use of insulin
CPT/HCPCS: 36415; 71045; 80053; 81001; 82948; 84484; 85025; 93005; 99285; G0378

== ENCOUNTER 2020-08-20 10:32 | Emergency (ER) | payer MEDICARE, MEDICAID, SELFPAY ==
--- NOTE | ~2020-08-20 | CT_ITS ---
EXAMINATION: CT brain wo con DATE: 08/20/2020 11:15 INDICATION: Left-sided numbness. Generalized weakness. TECHNIQUE: Computed tomography (CT) of the head was performed without intravenous contrast. The mA wa s adjusted according to patient size. Iterative reconstruction technique was employed. The dose-lengt h product was 605.33 mGy-cm. COMPARISON: None FINDINGS: There is chronic encephalomalacia in right temporal occipital region in the expected distri bution of right posterior cerebral artery. There is chronic encephalomalacia in right frontal lobe an d right insula in the expected distribution of right middle cerebral artery. There is no intracranial hemorrhage, acute infarction, or abnormal intracranial mass lesion. The ventricles are normal in siz e. There is mild mucosal thickening in the paranasal sinuses. The orbits are normal. There is a trace right mastoid effusion. There is posterior neck soft tissue swelling. IMPRESSION: 1. Chronic encephalomalacia involving the right frontal lobe, right insula, right temporal lobe, and right occipital lobe. Reviewed, dictated and finalized at location B. IMPRESSION: 1. Chronic encephalomalacia involving the right frontal lobe, right insula, rig ht temporal lobe, and right occipital lobe.
[2020-08-20 10:35] VITALS: BP 92/48; PULSE 60; RESP 17; TEMP 36.5; O2SAT 97
--- NOTE | 2020-08-20 11:07 | ED.WEAKNESS ---
HPI - Weakness General Chief complaint: Weakness Stated complaint: AMBULANCE Time Seen by Provider: 08/20/20 11:00 Source: patient Mode of arrival: ambulatory Limitations: no limitations History of Present Illness HPI Narrative: Patient comes in with complaints of feeling weakness and feeling his lower left leg is numb off and on. This has gone on for years. 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 He comes in stating he has not felt well. He lives in his own apartment alone. He has no focal weakness and describes the weakness as ongoing for the past several years, and unchanged for years. She describes no new symptoms. She does talk about a loved one's and the need to be around those who would help him. No other associated signs or symptoms. MD Complaint: generalized weakness Onset (ago): week(s) Duration: constant Location: generalized Severity: mild Quality: numbness Relieving factors: none Exacerbating factors: none Context: recent illness Associated symptoms: denies other symptoms Related Data Home Medications Medication Instructions Recorded Confirmed Basaglar KwikPen U-100 Insulin 20 unit SUBCUT HS 03/27/19 08/20/20 Brilinta 90 mg PO DAILY 03/27/19 08/20/20 clonidine HCl 0.2 mg PO BID 03/27/19 08/20/20 insulin aspart U-100 [Novolog See Rx Instructions .ROUTE .COMPLEX 03/27/19 08/20/20 Flexpen U-100 Insulin] Jardiance 10 mg PO DAILY 04/27/20 08/20/20 isosorbide mononitrate 30 mg PO DAILY 04/27/20 08/20/20 Prolia 60 mg SUBCUT [id number] 07/16/20 08/20/20 hydralazine 50 mg PO TID 08/02/20 08/20/20 nifedipine [Adalat CC] 60 mg PO DAILY 08/02/20 08/20/20 Adult Low Dose Aspirin 81 mg PO DAILY 08/05/20 08/20/20 Allergy (diphenhydramine) 25 mg PO Q8-10H PRN 08/05/20 08/20/20 Miralax 17 g PO DAILY PRN 08/05/20 08/20/20 acetaminophen 650 mg PO Q8-10H PRN 08/05/20 08/20/20 carvedilol 50 mg PO BID 08/05/20 08/20/20 cholecalciferol (vitamin D3) 1,000 unit PO DAILY 08/05/20 08/20/20 pantoprazole 40 mg PO BID 08/05/20 08/20/20 senna 8.6 mg PO DAILY 08/05/20 08/20/20 sucralfate 1 g PO Q4-6H 08/05/20 08/20/20 ceftazidime 2 g IV BIDAC 08/16/20 08/20/20 daptomycin 500 mg IV DAILY 08/16/20 08/20/20 hydrocodone-acetaminophen See Rx Instructions .ROUTE .COMPLEX 08/16/20 08/20/20 metronidazole [Flagyl] 500 mg PO Q8H 08/16/20 08/20/20 Allergies Allergy/AdvReac Type Severity Reaction Status Date / Time amoxicillin [From Augmentin] Allergy Rash Verified 07/16/20 22:28 clavulanic acid Allergy Rash Verified 07/16/20 22:28 [From Augmentin] metformin Allergy Other Verified 07/16/20 22:28 Review of Systems Constitutional: Constitutional: Reports no additional constitutional complaints Eyes: Eyes: Reports no additional eye complaints ENT: Reports system reviewed and no additional complaints, except as documented Cardiovascular: Cardiovascular: Reports no additional cardiovascular complaints Respiratory: Respiratory: Reports no additional respiratory complaints Gastrointestinal: Gastrointestinal: Reports no additional gastrointestinal complaints Genitourinary: Genitourinary: Reports no additional male genitourinary complaints Musculoskeletal: Musculoskeletal: Reports no additional musculoskeletal complaints Integumentary/Breasts: Skin/Breast: Reports system reviewed and no additional complaints, except as docu Neurologic: Reports system reviewed and no additional complaints, except as documented Psychiatric: Psychiatric: Reports no additional psychiatric complaints Endocrine: Endocrine: Reports no additional endocrine complaints Hematologic/Lymphatic: Hematologic/Lymphatic: Reports no additional hematologic/lymphatic complaints Allergic/Immunologic: Allergic/Immunologic: Reports no additional allergic/immunologic complaints [facility] Past Medical History Medical History (Reviewed 08/21/20 @ 07:52 by Pastor Pizano
[2020-08-20 11:40] LABS: Basophils Absolute Auto 0.07 K/mm3 (0.00-0.10); Basophils Percent Auto 0.8 % (0.0-1.0); Eosinophils Absolute Auto 0.61 K/mm3 (0.02-0.50); Eosinophils Percent Auto 7.3 % (1.0-6.0); Hematocrit 28.7 % (37.0-46.0); Hemoglobin 9.2 g/dL (12.4-15.3); Immature Granulocyte Absolute 0.04 K/mm3 (0.00-0.00); Immature Granulocyte Percent A 0.5 % (0.0-0.0); Lymphocytes Absolute Auto 0.84 K/mm3 (1.10-4.50); Lymphocytes Percent Auto 10.1 % (18.0-42.0); Mean Corpuscular HGB Conc 32.1 g/dL (32.0-36.0); Mean Corpuscular Hemoglobin 27.5 pg (27.0-31.0); Mean Corpuscular Volume 85.7 fL (78.0-102.0); Mean Platelet Volume 9.7 fl (8.7-11.0); Monocytes Absolute Auto 0.71 K/mm3 (0.10-0.90); Monocytes Percent Auto 8.5 % (2.0-11.0); Neutrophils Absolute Auto 6.1 K/mm3 (1.7-7.2); Neutrophils Percent Auto 72.8 % (50.0-70.0); Platelet Count Result 338 K/mm3 (150-420); Red Blood Count 3.35 M/mm3 (4.70-6.10); Red Cell Distribution Width 18.6 % (11.6-14.4); White Blood Count 8.3 K/mm3 (4.8-10.8)
[2020-08-20 11:54] LABS: Add Urine Microscopic? YES; Appearance Urine Sl Cloudy (Clear); Bilirubin Urine Negative (Negative); Blood Urine Negative (Negative); Color Urine Yellow (Yellow); Glucose Urine UA Trace (Negative); Ketones Urine Negative (Negative); Leukocyte Esterase Ur Negative LEU/UL (Negative); Nitrate Urine Negative (Negative); Protein Urine 2+ (Negative); Urobilinogen Urine 0.2 mg/dL (0.2-1.0)
[2020-08-20 11:54] LABS: Alanine Aminotransferase 14 U/L (16-63); Albumin Level 2.7 g/dL (3.4-5.0); Alkaline Phosphatase 88 U/L (46-116); Anion Gap 12 mmol/L (8-16); Aspartate Amino Transferase 11 U/L (15-37); Bilirubin,Total 0.2 mg/dL (0.00-1.00); Blood Urea Nitrogen 56 mg/dL (7-18); Calcium 7.9 mg/dL (8.5-10.1); Carbon Dioxide 25 mmol/L (21-32); Chloride 100 mmol/L (98-108); Estimated Glomerular Filt Rate 18; Glucose 151 mg/dL (70-99); Osmolality Calculated 302 mOsm/kg (285-295); Potassium 3.5 mmol/L (3.5-5.1); Sodium 137 mmol/L (136-145); Total Protein 6.6 g/dL (6.4-8.2)
[2020-08-20 11:56] LABS: Magnesium 1.8 mg/dL (1.8-2.4)
[2020-08-20 12:04] LABS: RBC Urine 0-2 /hpf (0-2); WBC Urine 0-3 /hpf (0-3)
[2020-08-20 12:05] LABS: Amorphous Sediment Urine Few; Bacteria Urine 3+ /hpf; Squamous Epithelial Cell Urine None seen /hpf (Few)
[2020-08-20 12:36] VITALS: BP 111/51
--- NOTE | 2020-08-20 12:36 | PC.NURSE ---
ERP AT BEDSIDE TO SPEAK WITH PATIENT IN DEPTH ABOUT HAVING TO MEET CRITERIA FOR ADMISSION - PT STATES THAT HE HAS A NEW SYMPTOM INCLUDING RIGHT ARM NUMBNESS AND LEFT LEG NUMBNESS. PT DOES HAVE NORMAL ADULT PLANTAR REFLEX WHEN ELICITED. PT STATES HE DOESN'T THINK HE NEEDS TO LEAVE NOW BECAUSE HE HAS SOMETHING NEW. ERP SPEAKS AGAIN TO PATIENT THAT HE HAS NOTHING NEW COMPARED TO HIS CHART AND RESULTS. PT REQUESTS A LUNCH TRAY. PATIENT STATES HE DOESN'T HAVE ANYONE THAT CAN GIVE HIM A RIDE. FULL TIME PARAMEDIC STATES THAT SHE CAN FIND A RIDE HOME FOR PATIENT BUT WILL HAVE TO PAY ALEJANDRO.
[2020-08-20 14:36] VITALS: BP 113/45; PULSE 60; O2SAT 98
== END 2020-08-20 14:10 | disposition home or self-care (01) ==
PROVIDERS: Emergency Provider Emergency Medicine
DX: R53.1 Weakness (principal); F41.9 Anxiety disorder, unspecified; I25.10 Atherosclerotic heart disease of native coronary artery without angina pectoris; I10 Essential (primary) hypertension; E11.9 Type 2 diabetes mellitus without complications; Z87.891 Personal history of nicotine dependence
CPT/HCPCS: 36415; 70450; 80053; 81001; 83735; 85025; 99282; 99284

== ENCOUNTER 2020-09-03 17:11 | Emergency (ER) | payer MEDICARE, MEDICAID, SELFPAY ==
--- NOTE | ~2020-09-03 | XR_ITS ---
EXAMINATION: XR foot LT min 3V DATE: 09/03/2020 18:43 INDICATION: Left foot pain post fall TECHNIQUE: Dorsoplantar, two oblique and lateral views of the left foot were obtained. COMPARISON: None. FINDINGS: Bone alignment is normal. No acute fracture. Small heterotopic ossicle near the anterior margin of th e medial malleolus likely sequela of chronic deltoid ligament sprain. Mild polyarticular osteoarthrit is at the left ankle, first metatarsophalangeal and several tarsal metatarsal and interphalangeal emperatriz nts. Scattered vascular calcifications in the left foot. IMPRESSION: 1. Typical pattern of mild polyarticular osteoarthritis at the left foot and ankle. No acute osseous abnormality. Reviewed, dictated and finalized at location A. IMPRESSION: 1. Typical pattern of mild polyarticular osteoarthritis at the left foot and an kle. No acute osseous abnormality.
--- NOTE | ~2020-09-03 | XR_ITS ---
EXAMINATION: XR chest 2V DATE: 09/03/2020 18:43 INDICATION: Syncope TECHNIQUE: frontal and lateral views of the chest were obtained. COMPARISON: Chest radiograph dated 08/17/2020 FINDINGS: The lungs remain clear with no focal airspace opacities, pulmonary edema, pleural effusion or pneumot horax. The cardiomediastinal silhouette is within normal limits for AP technique. Median sternotomy w ires, ostial markers and mediastinal surgical clips consistent with prior coronary artery bypass jina ting. There has also been prior coronary artery stenting and aortic valve repair. Three lead pacemake r seen with leads projecting over the expected locations of the right atrial appendage, apex of the r ight ventricle and overlying the left ventricle likely having traversed the coronary sinus. Right upp er extremity peripherally inserted central venous catheter (PICC) tip at the superior vena cava. The re are bridging osteophytes at multiple levels in the spine, consistent with diffuse idiopathic skele hraika hyperostosis (DISH). IMPRESSION: 1. No acute cardiopulmonary disease. Reviewed, dictated and finalized at location A.
--- NOTE | ~2020-09-03 | XR_ITS ---
EXAMINATION: XR tibia fibula LT 2V DATE: 09/03/2020 18:43 INDICATION: Left lower leg pain post fall TECHNIQUE: Anteroposterior and lateral views of the left tibia and fibula were obtained. COMPARISON: None. FINDINGS: Minimally displaced transverse fracture across the proximal neck of the left fibula. Alignment remain s near-anatomic. No other fractures identified. Mild osteoarthritis at least the medial compartment o f the left neck as well as at the tibiotalar joint. Scattered vascular calcium location as with prior stenting in the region of the proximal left popliteal artery. Surgical clips in the subcutaneous tis sues medial to the proximal tibia. No evident knee joint effusion. Soft tissue swelling about the lef t ankle. IMPRESSION: 1. Minimally displaced extra articular fracture at the proximal neck of the left fibula. Reviewed, dictated and finalized at location A. IMPRESSION: 1. Minimally displaced extra articular fracture at the proximal neck of the lef t fibula.
--- NOTE | ~2020-09-03 | CT_ITS ---
EXAMINATION: CT brain wo con DATE: 09/03/2020 18:43 INDICATION: Fall with syncope and weakness. TECHNIQUE: Computed tomography (CT) of the head was performed without intravenous contrast. Sagittal and coronal reconstructions were performed. The mA was adjusted according to patient size. Iterative reconstruction technique was employed. The dose-length product was 681.00 mGy-cm. COMPARISON: head CT dated 08/20/2020 FINDINGS: No fracture. Small old lacunar infarct in the left cerebellar hemisphere. Moderate sized regions of e ncephalomalacia at the right occipital and medial temporal lobes and the right frontal lobe extending to the anterior insula consistent with chronic infarcts. No acute intracranial hemorrhage, acute inf arction or abnormal extra axial fluid collection. Ventricles are normal and symmetric. No mass/mass e ffect. Scattered mucosal thickening throughout the paranasal sinuses. The orbits and mastoid air cell s are normal. Intracranial calcified cerebral atherosclerosis is noted. Unchanged irregular soft tiss ue density suggesting scarring in the subcutaneous fat at the suboccipital posterior neck. Multiple d ental caries with periapical lucencies surrounding the bilateral maxillary canines, central incisors and right lateral incisor IMPRESSION: 1. No fracture or acute intracranial process. 2. Moderate-sized old infarcts in the right frontal, temporal and occipital lobes and right insular a nd small old infarct in the left cerebellar hemisphere. 3. Extensive dental disease with multiple periapical lucencies along the teeth at the anterior maxill a. Consider dental referral. Reviewed, dictated and finalized at location A. IMPRESSION: 1. No fracture or acute intracranial process. 2. Moderate-sized old infarcts in the right frontal, temporal and occipital lob es and right insular and small old infarct in the left cerebellar hemisphere. 3. Extensive dental disease with multiple periapical lucencies along the teeth at the anterior maxilla. Consider dental referral.
--- NOTE | 2020-09-03 17:24 | ED.SYNCOPE ---
HPI - Syncope General Chief Complaint: Syncope Stated Complaint: AMB Time Seen by Provider: 09/03/20 17:24 Source: patient Mode of arrival: ambulatory Limitations: no limitations History of Present Illness HPI narrative: 7-year-old man with a history of type 2 diabetes, coronary artery disease, peripheral vascular disease, a pacemaker and right lower extremity cellulitis for which she is taking home infusions brought to the emergency department today after finding himself on the floor at 4:00 this afternoon. He states that he woke up at 6:00 a.m. to thaw his antibiotics and does remember what happened afterwards. States that he woke up sweaty but not short of breath and he has had no chest pain. States he has had some diarrhea for few days and and has been feeling weak for the last several weeks. He denies black or bloody stools, vomiting, cough or cold symptoms, shortness of breath, ankle swelling, or abdominal pain. MD complaint: loss of consciousness Onset (ago): hour(s) (9-10 hours ago) -: minutes(s) (8 hours) Prodromal symptoms: none Witnessed: No Context: at rest Injuries sustained associated with event: LLE Current symptoms: other (left lower leg pain) History: history of CAD and pacemaker Treatments prior to arrival: none Related Data Home Medications Medication Instructions Recorded Confirmed Basaglar KwikPen U-100 Insulin 20 unit SUBCUT HS 03/27/19 09/03/20 Brilinta 90 mg PO BID 03/27/19 09/03/20 insulin aspart U-100 [Novolog See Rx Instructions .ROUTE .COMPLEX 03/27/19 09/03/20 Flexpen U-100 Insulin] isosorbide mononitrate 30 mg PO DAILY 04/27/20 09/03/20 Prolia 60 mg SUBCUT [id number] 07/16/20 09/03/20 hydralazine 50 mg PO TID 08/02/20 09/03/20 nifedipine [Adalat CC] 60 mg PO DAILY 08/02/20 09/03/20 Adult Low Dose Aspirin 81 mg PO DAILY 08/05/20 09/03/20 Allergy (diphenhydramine) 25 mg PO Q8-10H PRN 08/05/20 09/03/20 Miralax 17 g PO DAILY PRN 08/05/20 09/03/20 acetaminophen 650 mg PO Q8-10H PRN 08/05/20 09/03/20 carvedilol 50 mg PO BID 08/05/20 09/03/20 cholecalciferol (vitamin D3) 1,000 unit PO DAILY 08/05/20 09/03/20 pantoprazole 40 mg PO BID 08/05/20 09/03/20 senna 8.6 mg PO DAILY 08/05/20 09/03/20 ceftazidime 2 g IV BIDAC 08/16/20 09/03/20 daptomycin 500 mg IV DAILY 08/16/20 09/03/20 hydrocodone-acetaminophen See Rx Instructions .ROUTE .COMPLEX 08/16/20 09/03/20 metronidazole [Flagyl] 500 mg PO Q8H 08/16/20 09/03/20 atorvastatin 80 mg PO DAILY 09/03/20 09/03/20 bumetanide 1 mg PO DAILY 09/03/20 09/03/20 clonidine HCl 0.2 mg PO BID 09/03/20 09/03/20 denosumab [Prolia] See Rx Instructions .ROUTE .COMPLEX 09/03/20 09/03/20 gabapentin 300 mg PO BID 09/03/20 09/03/20 hydrochlorothiazide 25 mg PO DAILY 09/03/20 09/03/20 lisinopril 40 mg PO DAILY 09/03/20 09/03/20 magnesium oxide 400 mg PO DAILY 09/03/20 09/03/20 Allergies Allergy/AdvReac Type Severity Reaction Status Date / Time amoxicillin [From Augmentin] Allergy Rash Verified 09/03/20 17:32 clavulanic acid Allergy Rash Verified 09/03/20 17:32 [From Augmentin] metformin Allergy Other Verified 09/03/20 17:32 Review of Systems Review of Systems: All systems reviewed & are unremarkable except as noted in HPI and below Constitutional: Constitutional: Denies chills, Denies fever(s) and Reports weakness Comments: Diaphoresis Eyes: Eyes: Denies change in vision and Denies photophobia ENT: Denies nasal congestion and Denies sore throat Cardiovascular: Cardiovascular: Denies chest pain and Denies radiating jaw, neck or arm pain Respiratory: Respiratory: Denies cough, Denies dyspnea and Denies wheezing Gastrointestinal: Gastrointestinal: Denies abdominal pain, Reports diarrhea, Denies nausea and Denies vomiting Genitourinary: Genitourinary: Denies dysuria and Denies urinary frequency Musculoskeletal: Musculoskeletal: Reports arthralgias, Denies joint swelling and Denies muscle cramps Integumentary/Breasts: Skin/Breast: Denies pruritus, Denies erythem
[2020-09-03 17:25] VITALS: BP 124/53; PULSE 59; RESP 20; TEMP 36.6; O2SAT 97
--- NOTE | 2020-09-03 17:45 | ECG_ITS ---
Measurements Intervals [place] Rate: 60 P: 218 TN: 245 QRS: 50 QRSD: 157 T: 29 QT: 520 QTc: 520 Interpretive Statements ELECTRONIC ATRIAL PACEMAKER ELECTRONIC VENTRICULAR PACEMAKER BASELINE ARTIFACT- I, II, III, AVR, AVL, AVF, V1-V6 NO FURTHER INTERPRETATION IS POSSIBLE ATYPICAL ECG Electronically Signed On 09-03-2020 19:15:42 CDT by Kenny Lomax D.O.
[2020-09-03 18:12] LABS: Basophils Absolute Auto 0.05 K/mm3 (0.00-0.10); Basophils Percent Auto 0.3 % (0.0-1.0); Eosinophils Absolute Auto 0.74 K/mm3 (0.02-0.50); Eosinophils Percent Auto 5.1 % (1.0-6.0); Hematocrit 34.3 % (37.0-46.0); Hemoglobin 11.1 g/dL (12.4-15.3); Immature Granulocyte Percent A 0.7 % (0.0-0.0); Lymphocytes Absolute Auto 0.99 K/mm3 (1.10-4.50); Lymphocytes Percent Auto 6.9 % (18.0-42.0); Mean Corpuscular HGB Conc 32.4 g/dL (32.0-36.0); Mean Corpuscular Hemoglobin 27.3 pg (27.0-31.0); Mean Corpuscular Volume 84.5 fL (78.0-102.0); Mean Platelet Volume 9.3 fl (8.7-11.0); Monocytes Percent Auto 6.9 % (2.0-11.0); Neutrophils Absolute Auto 11.6 K/mm3 (1.7-7.2); Neutrophils Percent Auto 80.1 % (50.0-70.0); Platelet Count Result 429 K/mm3 (150-420); Red Blood Count 4.06 M/mm3 (4.70-6.10); Red Cell Distribution Width 18.3 % (11.6-14.4); White Blood Count 14.4 K/mm3 (4.8-10.8)
[2020-09-03 18:24] LABS: INR 1.1; Partial Thromboplastin Time 24.7 SEC (23.90-30.70); Prothrombin Time 11.2 Seconds (9.50-12.10)
[2020-09-03 18:30] LABS: Alanine Aminotransferase 19 U/L (16-63); Albumin Level 3.3 g/dL (3.4-5.0); Alkaline Phosphatase 98 U/L (46-116); Anion Gap 14 mmol/L (8-16); Aspartate Amino Transferase 13 U/L (15-37); Bilirubin,Total 0.3 mg/dL (0.00-1.00); Blood Urea Nitrogen 45 mg/dL (7-18); CRP 0.8 mg/dL (0.0-0.9); Calcium 9.7 mg/dL (8.5-10.1); Carbon Dioxide 26 mmol/L (21-32); Chloride 99 mmol/L (98-108); Estimated CRCL calculation 31 ml/min; Estimated Glomerular Filt Rate 27; Glucose 113 mg/dL (70-99); Lactic Acid Reflex 1.1 mmol/L (0.4-2.0); Osmolality Calculated 300 mOsm/kg (285-295); Potassium 4.2 mmol/L (3.5-5.1); Sodium 139 mmol/L (136-145); Total Protein 8.1 g/dL (6.4-8.2)
[2020-09-03 18:31] LABS: Creatine Kinase 75 U/L (39-308); Troponin I 34.6 ng/L (0.00-60.4)
[2020-09-03 19:29] LABS: Appearance Urine Clear (Clear); Bilirubin Urine Negative (Negative); Glucose Urine UA 1+ (Negative); Ketones Urine Negative (Negative); Leukocyte Esterase Ur Negative LEU/UL (Negative); Nitrate Urine Negative (Negative); Protein Urine 1+ (Negative); Specific Grav Ur 1.015 (1.010-1.020); Urobilinogen Urine 0.2 mg/dL (0.2-1.0)
[2020-09-03 19:30] VITALS: BP 120/57; PULSE 60; RESP 20; O2SAT 99
[2020-09-03 19:38] LABS: Add Urine Microscopic? YES; Bacteria Urine Trace /hpf; Blood Urine Trace (Negative); Color Urine Light Yellow (Yellow); Mucus Urine Rare /lpf; RBC Urine 0-2 /hpf (0-2); WBC Urine 0-3 /hpf (0-3)
[2020-09-03 21:15] VITALS: BP 136/102; PULSE 76; RESP 20; O2SAT 96
--- NOTE | 2020-09-03 22:00 | PC.NURSE ---
2100 NURSE TO NURSE REPORT GIVEN TO BUCKY RN ON 2ND FLOOR
[2020-09-03 22:03] LABS: Troponin I 66.5 ng/L (0.00-60.4)
--- NOTE | 2020-09-03 22:05 | PC.NURSE ---
dr glez aware of elevated trop of 66.5 and the need for med clarification on insulin.
--- NOTE | 2020-09-03 22:12 | PC.NURSE ---
2130 PT TO FLOOR ROOM 209 AWAIT[address] BED [address]EMENT AT [facility] TAKEN BY W/C WITH OUT DIFFICULTY
[2020-09-03 22:28] VITALS: PULSE 71
[2020-09-03] MEDS: HYDROcodone/acetaminophen (*CRX) 7.5-325 MG TABLET 1 TAB PO (22:28)
[2020-09-03] MEDS: carvediloL 6.25 MG TABLET 50 MG PO (22:28)
[2020-09-03] MEDS: GABAPENTIN 300 MG CAPSULE PO (22:29)
[2020-09-03] MEDS: hydrALAZINE HCL 25 MG TABLET 50 MG PO (22:29)
[2020-09-03] MEDS: PANTOPRAZOLE 40 MG TABLET PO (22:29)
[2020-09-03] MEDS: cloNIDine HCL 0.2 MG TABLET PO (22:30)
[2020-09-03] MEDS: INSULIN GLARGINE (*BKC) 100 UNITS/ML 20 UNITS SUB-Q (22:37)
[2020-09-03] MEDS: SODIUM CHLORIDE 0.9% IV 1,000 ML 100 ML IV CONT (22:37)
[2020-09-03 22:48] LABS: Glucose Point of Care 147 mg/dl (65-105)
--- NOTE | 2020-09-03 22:53 | PC.NURSE ---
Patient arrived via wc from ER at 2140. Patient A/O x4. C/o pain to bilateral feet and left leg. PRN pain medication given. Paperwork given to forensic materials engineer.
--- NOTE | 2020-09-03 22:54 | PC.NURSE ---
Urine was collected and sent to lab for UA.
[2020-09-03] MEDS: TICAGRELOR 90 MG TABLET PO (23:14)
[2020-09-04] VITALS (7 sets, daily range): BP systolic 114–130; BP diastolic 53–74; PULSE 60–74; RESP 18–20; TEMP 36.6–36.9; O2SAT 93–96
[2020-09-04 02:00] LABS: Troponin I 102.5 ng/L (0.00-60.4)
--- NOTE | 2020-09-04 02:03 | PC.NURSE ---
Lab called to report a critical troponin of 102.5. Dr. Najera notified of the critical troponin value; No new orders at this time.
[2020-09-04] MEDS: ACETAMINOPHEN 325 MG TABLET 650 MG PO ×2 (02:06→19:28)
--- NOTE | 2020-09-04 02:11 | PC.NURSE ---
Patient resting at this time. Denies any c/o CP. Continues on telemetry-paced rhythm noted. C/o pain to left foot, leg and right elbow. A/O x4. PRN tylenol was given. Continues with IV fluids.
[2020-09-04] MEDS: HYDROcodone/acetaminophen (*CRX) 7.5-325 MG TABLET 1 TAB PO ×4 (04:30→23:01)
[2020-09-04 05:25] LABS: Basophils Absolute Auto 0.05 K/mm3 (0.00-0.10); Basophils Percent Auto 0.5 % (0.0-1.0); Eosinophils Absolute Auto 0.74 K/mm3 (0.02-0.50); Eosinophils Percent Auto 8.1 % (1.0-6.0); Hematocrit 27.3 % (37.0-46.0); Hemoglobin 8.7 g/dL (12.4-15.3); Immature Granulocyte Absolute 0.03 K/mm3 (0.00-0.00); Immature Granulocyte Percent A 0.3 % (0.0-0.0); Lymphocytes Absolute Auto 1.16 K/mm3 (1.10-4.50); Lymphocytes Percent Auto 12.7 % (18.0-42.0); Mean Corpuscular HGB Conc 31.9 g/dL (32.0-36.0); Mean Corpuscular Hemoglobin 27.4 pg (27.0-31.0); Mean Corpuscular Volume 86.1 fL (78.0-102.0); Mean Platelet Volume 9.6 fl (8.7-11.0); Monocytes Absolute Auto 1.02 K/mm3 (0.10-0.90); Monocytes Percent Auto 11.2 % (2.0-11.0); Neutrophils Absolute Auto 6.1 K/mm3 (1.7-7.2); Neutrophils Percent Auto 67.2 % (50.0-70.0); Platelet Count Result 338 K/mm3 (150-420); Red Blood Count 3.17 M/mm3 (4.70-6.10); Red Cell Distribution Width 18.4 % (11.6-14.4); White Blood Count 9.1 K/mm3 (4.8-10.8)
[2020-09-04] MEDS: hydrALAZINE HCL 25 MG TABLET 50 MG PO ×3 (05:43→21:41)
[2020-09-04 05:45] LABS: Alanine Aminotransferase 17 U/L (16-63); Albumin Level 2.5 g/dL (3.4-5.0); Alkaline Phosphatase 73 U/L (46-116); Anion Gap 9 mmol/L (8-16); Aspartate Amino Transferase 12 U/L (15-37); Bilirubin,Total 0.2 mg/dL (0.00-1.00); Blood Urea Nitrogen 42 mg/dL (7-18); Calcium 8.5 mg/dL (8.5-10.1); Carbon Dioxide 29 mmol/L (21-32); Chloride 101 mmol/L (98-108); Estimated CRCL calculation 36 ml/min; Estimated Glomerular Filt Rate 32; Glucose 142 mg/dL (70-99); Osmolality Calculated 300 mOsm/kg (285-295); Potassium 4.3 mmol/L (3.5-5.1); Sodium 139 mmol/L (136-145); Total Protein 6.5 g/dL (6.4-8.2)
[2020-09-04 05:46] LABS: Creatine Kinase 61 U/L (39-308)
[2020-09-04 05:48] LABS: Troponin I 96.6 ng/L (0.00-60.4)
--- NOTE | 2020-09-04 05:59 | PC.NURSE ---
Dr. Najera notified of pt's troponin value of 96.6; No new orders at this time.
[2020-09-04 07:33] LABS: Glucose Point of Care 130 mg/dl (65-105)
[2020-09-04] MEDS: SODIUM CHLORIDE 0.9% IV 1,000 ML 100 ML IV CONT (07:50)
[2020-09-04] MEDS: ASPIRIN 81 MG ENTERIC TABLET PO (08:00)
[2020-09-04] MEDS: GABAPENTIN 300 MG CAPSULE PO ×2 (08:00→21:41)
[2020-09-04] MEDS: ATORVASTATIN 40 MG TABLET 80 MG PO (08:01)
[2020-09-04] MEDS: hydroCHLOROthiazide 25 MG TABLET PO (08:01)
[2020-09-04] MEDS: NIFEdipine 30 MG TAB.ER.24 60 MG PO (08:02)
[2020-09-04] MEDS: carvediloL 6.25 MG TABLET 50 MG PO ×2 (08:02→21:40)
[2020-09-04] MEDS: lisinopriL 20 MG TABLET 40 MG PO (08:03)
[2020-09-04] MEDS: ISOSORBIDE MONONITRATE 30 MG TAB.ER.24H PO (08:03)
[2020-09-04] MEDS: CHOLECALCIFEROL 1,000 UNITS TABLET 1000 UNITS PO (08:05)
[2020-09-04] MEDS: cloNIDine HCL 0.2 MG TABLET PO ×2 (08:05→21:41)
[2020-09-04] MEDS: PANTOPRAZOLE 40 MG TABLET PO ×2 (08:05→21:41)
[2020-09-04] MEDS: TICAGRELOR 90 MG TABLET PO ×2 (08:51→21:38)
[2020-09-04] MEDS: BUMETANIDE 1 MG TABLET PO (08:51)
--- NOTE | 2020-09-04 09:02 | PC.NURSE ---
erp here and saw patient. fax request sent to [facility] for antibiotics that he was dc on. and records for cont of care from july 2020
--- NOTE | 2020-09-04 09:06 | ED.GENADULT ---
HPI - General Adult General Chief complaint: Syncope Stated complaint: AMB Time Seen by Provider: 09/03/20 17:24 Source: patient Mode of arrival: ambulatory Limitations: no limitations History of Present Illness HPI narrative: Care assumed from Dr. Najera at 0700. In summary Johnie is a 70M with a complex PMH of CAD, pacemaker, PAD, DMII, CKD3b an osteomyelitis of right foot that came to the ED after an episode of syncope where he was down for multiple hours and fracture his fibula. he is awaiting a bed at [facility] to see his specialists. Related Data Home Medications Medication Instructions Recorded Confirmed Basaglar KwikPen U-100 Insulin 20 unit SUBCUT HS 03/27/19 09/03/20 Brilinta 90 mg PO BID 03/27/19 09/03/20 insulin aspart U-100 [Novolog See Rx Instructions .ROUTE .COMPLEX 03/27/19 09/03/20 Flexpen U-100 Insulin] isosorbide mononitrate 30 mg PO DAILY 04/27/20 09/03/20 Prolia 60 mg SUBCUT [id number] 07/16/20 09/03/20 hydralazine 50 mg PO TID 08/02/20 09/03/20 nifedipine [Adalat CC] 60 mg PO DAILY 08/02/20 09/03/20 Adult Low Dose Aspirin 81 mg PO DAILY 08/05/20 09/03/20 Allergy (diphenhydramine) 25 mg PO Q8-10H PRN 08/05/20 09/03/20 Miralax 17 g PO DAILY PRN 08/05/20 09/03/20 acetaminophen 650 mg PO Q8-10H PRN 08/05/20 09/03/20 carvedilol 50 mg PO BID 08/05/20 09/03/20 cholecalciferol (vitamin D3) 1,000 unit PO DAILY 08/05/20 09/03/20 pantoprazole 40 mg PO BID 08/05/20 09/03/20 senna 8.6 mg PO DAILY 08/05/20 09/03/20 ceftazidime 2 g IV BIDAC 08/16/20 09/04/20 daptomycin 500 mg IV DAILY 08/16/20 09/04/20 hydrocodone-acetaminophen See Rx Instructions .ROUTE .COMPLEX 08/16/20 09/03/20 metronidazole [Flagyl] 500 mg PO Q8H 08/16/20 09/03/20 atorvastatin 80 mg PO DAILY 09/03/20 09/03/20 bumetanide 1 mg PO DAILY 09/03/20 09/03/20 clonidine HCl 0.2 mg PO BID 09/03/20 09/03/20 denosumab [Prolia] See Rx Instructions .ROUTE .COMPLEX 09/03/20 09/03/20 gabapentin 300 mg PO BID 09/03/20 09/03/20 hydrochlorothiazide 25 mg PO DAILY 09/03/20 09/03/20 lisinopril 40 mg PO DAILY 09/03/20 09/03/20 magnesium oxide 400 mg PO DAILY 09/03/20 09/03/20 Allergies Allergy/AdvReac Type Severity Reaction Status Date / Time amoxicillin [From Augmentin] Allergy Rash Verified 09/03/20 17:32 clavulanic acid Allergy Rash Verified 09/03/20 17:32 [From Augmentin] metformin Allergy Other Verified 09/03/20 17:32 Review of Systems Constitutional: Constitutional: Reports no additional constitutional complaints Eyes: Eyes: Reports no additional eye complaints ENT: Reports system reviewed and no additional complaints, except as documented Cardiovascular: Cardiovascular: Reports as per HPI Respiratory: Respiratory: Reports no additional respiratory complaints Gastrointestinal: Gastrointestinal: Reports no additional gastrointestinal complaints Genitourinary: Genitourinary: Reports no additional male genitourinary complaints Musculoskeletal: Comments: admits left foot and leg pain Integumentary/Breasts: Skin/Breast: Reports system reviewed and no additional complaints, except as docu Neurologic: Reports as per HPI Psychiatric: Psychiatric: Reports no additional psychiatric complaints [facility] Past Medical History Medical History Aortic valve disease CAD (coronary artery disease) Heart disease Hypertension Hypertension associated with diabetes IDDM (insulin dependent diabetes mellitus) Pacemaker PAD (peripheral artery disease) 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 Surgical History Surgical History H/O left inguinal hernia repair H/O parathyroidectomy History of aortic valve repair History of coronary artery stent placement S/P CABG x 6 Family History Family History Mother Hypertension Father Heart disease Mitral valve r
--- NOTE | 2020-09-04 10:37 | PHAR ---
pt. got ceftaz x1 at 2AM but therapy not continued. discussued at rounds and pt supposed to be on ceftaz 2gm q12 hr as well as daptomycin 500mg daily (got last infusion 09/03/20 at 08:00). pt. has osteomyelitis and was getting prior to admittance. currently just an ER hold (waiting for bed). since CrCl ~36ml/in, adjusting to 1gm q12h and also resuming daptomycin. tls
--- NOTE | 2020-09-04 10:43 | PC.NURSE ---
repositions self in bed. c/o that left leg hurts where he broke it and r foot aches all the time. rates it at least a 6. prn med given. see mar. wants to sleep now. tele is a paced rhythm rate of 60.
--- NOTE | 2020-09-04 10:46 | PC.NURSE ---
ivf stopped. flushed pick in r ac. no blood return. claims it has not had one for awhile.
[2020-09-04 11:54] LABS: Glucose Point of Care 129 mg/dl (65-105)
[2020-09-04] MEDS: DAPTOmycin 500 MG in SODIUM CHLORIDE 0.9% IV 50 ML 100 MG IVPB (12:50)
[2020-09-04] MEDS: MAGNESIUM OXIDE 400 MG TABLET PO (12:50)
--- NOTE | 2020-09-04 13:04 | PC.NURSE ---
claims pain meds help some. still has chronic pain in r foot. rates 4 on scale1-10. repositioned in bed. no changes in neuro status. A & O x's 4. paced rhythm on tele with rates 60. ate 100% of lunch.
[2020-09-04] MEDS: COLLAGENASE OINT 30 GM TUBE 1 APPLIC TOPICAL (15:07)
--- NOTE | 2020-09-04 16:13 | PC.NURSE ---
denies chest pains but does c/o of back pain. prn given. see mar. c/o shaky feeling. bs 48. eating cottage cheese and fruit up. paced rhythm on tele with 60 hr. talks on phone
[2020-09-04 16:31] LABS: Glucose Point of Care 48 mg/dl (65-105)
[2020-09-04 16:31] LABS: Glucose Point of Care 65 mg/dl (65-105)
[2020-09-04 17:13] LABS: Glucose Point of Care 104 mg/dl (65-105)
--- NOTE | 2020-09-04 19:25 | PC.NURSE ---
1720 ate entire supper. dozes in and out. watches tv. remains in paced rhythm with rates 60
--- NOTE | 2020-09-04 19:28 | PC.NURSE ---
1500 drg changed to r foot. 2nd and 3rd toe missing. area is green brown wound bed. dk scab on outer foot. inner foot has 2 small scabbed areas. no drainage noted. areas cleansed and santyl ointment applied to area and dry drg applied.
[2020-09-04 20:39] LABS: Glucose Point of Care 232 mg/dl (65-105)
[2020-09-04] MEDS: INSULIN GLARGINE (*BKC) 100 UNITS/ML 20 UNITS SUB-Q (21:38)
[2020-09-04] MEDS: SENNOSIDES 8.6 MG TABLET PO (21:41)
--- NOTE | 2020-09-04 23:28 | PC.NURSE ---
Pt A&O x4, c/o pain in L leg, PRN Hydrocodone given pt states improvement of pain. Lung sounds WNL, continues on tele with paced rhythm HR 65. Limited ROM Left leg. Skin WDI, Blood Glucose 232 @ 2100. PICC R Arm WNL. Dressing to R foot CDI. Vital signs: T 97.7, BP 119/53, HR 65, RR 20, SPO2 96%.
--- NOTE | 2020-09-05 02:00 | PC.NURSE ---
DARCI Chew at bedside to administer IV Fortaz via PICC in R arm.
[2020-09-05] MEDS: ACETAMINOPHEN 325 MG TABLET 650 MG PO ×2 (02:54→12:57)
[2020-09-05] MEDS: HYDROcodone/acetaminophen (*CRX) 7.5-325 MG TABLET 1 TAB PO ×2 (05:03→10:58)
[2020-09-05] MEDS: hydrALAZINE HCL 25 MG TABLET 50 MG PO (05:03)
[2020-09-05 07:55] LABS: Glucose Point of Care 168 mg/dl (65-105)
[2020-09-05 08:04] VITALS: BP 135/57; PULSE 63; RESP 18; TEMP 37.1; O2SAT 95
[2020-09-05] MEDS: lisinopriL 20 MG TABLET 40 MG PO (08:17)
[2020-09-05] MEDS: NIFEdipine 30 MG TAB.ER.24 60 MG PO (08:17)
[2020-09-05] MEDS: ASPIRIN 81 MG ENTERIC TABLET PO (08:17)
[2020-09-05] MEDS: CHOLECALCIFEROL 1,000 UNITS TABLET 1000 UNITS PO (08:17)
[2020-09-05] MEDS: ISOSORBIDE MONONITRATE 30 MG TAB.ER.24H PO (08:17)
[2020-09-05] MEDS: PANTOPRAZOLE 40 MG TABLET PO (08:17)
[2020-09-05] MEDS: hydroCHLOROthiazide 25 MG TABLET PO (08:17)
[2020-09-05] MEDS: COLLAGENASE OINT 30 GM TUBE 1 APPLIC TOPICAL (08:18)
[2020-09-05] MEDS: cloNIDine HCL 0.2 MG TABLET PO (08:18)
[2020-09-05] MEDS: BUMETANIDE 1 MG TABLET PO (08:18)
[2020-09-05] MEDS: ATORVASTATIN 40 MG TABLET 80 MG PO (08:18)
[2020-09-05] MEDS: TICAGRELOR 90 MG TABLET PO (08:18)
[2020-09-05] MEDS: GABAPENTIN 300 MG CAPSULE PO (08:18)
--- NOTE | 2020-09-05 08:33 | PC.NURSE ---
pt sitting up in bed, denies any needs, ate 100% of meal
--- NOTE | 2020-09-05 09:21 | PHAR ---
09/05/20: confirmed w/[facility] that carvedilol dosage is 50mg q12hr (last filled 08/19/20). tls
[2020-09-05] MEDS: carvediloL 12.5 MG TABLET 50 MG PO (09:23)
--- NOTE | 2020-09-05 09:43 | PC.NURSE ---
pt requested garima wrap for left foot to help with pain, wrap applied, good capillary refill to toes.
[2020-09-05 11:23] LABS: Glucose Point of Care 163 mg/dl (65-105)
[2020-09-05] MEDS: MAGNESIUM OXIDE 400 MG TABLET PO (12:22)
[2020-09-05] MEDS: DAPTOmycin 500 MG in SODIUM CHLORIDE 0.9% IV 50 ML 100 MG IVPB (12:46)
--- NOTE | 2020-09-05 12:59 | PC.NURSE ---
Transfer has been accepted by [facility] room assignment received, [facility] with no transfer truck today, [facility] paged for transfer
[2020-09-05 13:29] VITALS: BP 135/54; PULSE 63; RESP 18; TEMP 37.1; O2SAT 95
--- NOTE | 2020-09-05 13:30 | PC.NURSE ---
pt discharged in stable condition to [facility] via stretcher, report given, belongings taken, picc line heparin locked.
== END 2020-09-05 13:30 | disposition short-term general hospital (02) ==
LOC: CHSED 20:51 → CHS2ND 21:08
PROVIDERS: Emergency Medicine; Emergency Provider Family Medicine
DX: R55 Syncope and collapse (principal); M86.9 Osteomyelitis, unspecified; I25.10 Atherosclerotic heart disease of native coronary artery without angina pectoris; I10 Essential (primary) hypertension; E11.9 Type 2 diabetes mellitus without complications; Z79.4 Long term (current) use of insulin; Z87.891 Personal history of nicotine dependence; Z79.899 Other long term (current) drug therapy
CPT/HCPCS: 36415; 70450; 71046; 73590; 73630; 80053; 81001; 82550; 82948; 83605; 84484; 85025; 85610; 85730; 86140; 87040; 87086; 93005; 96361; 96365; 96366; 96367; 99285; A9270; J0713; J0878; J1815; J7030

== ENCOUNTER 2021-01-19 00:44 | Observation (INO) | payer MEDICARE, MEDICAID, SELFPAY ==
[2021-01-19] VITALS (13 sets, daily range): BP systolic 107–134; BP diastolic 47–86; PULSE 60–62; RESP 16–20; TEMP 36.8–37.3; O2SAT 91–97
--- NOTE | ~2021-01-19 | XR_ITS ---
EXAMINATION: XR chest 1V portable INDICATION: Mid chest pain TECHNIQUE: Portable AP chest at 0103 hours COMPARISON: 09/03/2020 FINDINGS: There is minimal left basilar atelectasis. There is no pleural effusion or pneumothorax. A triple lead cardiac pacemaker of the left chest wall ends with leads in expected locations. The heart size is normal. IMPRESSION: 1. Minimal left basilar atelectasis. Reviewed, dictated and finalized at location A.
--- NOTE | ~2021-01-19 | NM_ITS ---
EXAMINATION: NM pulmonary perfusion DATE: 01/20/2021 10:48 INDICATION: Shortness of breath. TECHNIQUE: 5 mCi Tc-99m MAA was administered intravenously for perfusion images. Scintigraphic image s of the chest were obtained. COMPARISON: Chest single view 01/20/2021 FINDINGS: Perfusion images show small defects in the lower lobes and upper lobes. IMPRESSION: 1. Pulmonary embolism absent (low probability for pulmonary embolism). Reviewed, dictated and finalized at location A.
--- NOTE | ~2021-01-19 | XR_ITS ---
EXAMINATION: XR chest 1V portable DATE: 01/20/2021 10:38 INDICATION: Mid chest pain. TECHNIQUE: A single frontal view of the chest was obtained. COMPARISON: Chest single view 01/19/2021, chest CT 07/16/2020 FINDINGS: There is no pneumonia, pleural effusion, or pneumothorax. Cardiomegaly is noted. There are changes of aortic valve replacement. Median sternotomy wires and mediastinal surgical clips are seen, likely from prior coronary artery bypass grafting. There is a left chest pacer with leads in right a trium, right ventricle, and coronary sinus. IMPRESSION: 1. Cardiomegaly. Reviewed, dictated and finalized at location A. IMPRESSION: 1. Cardiomegaly.
--- NOTE | 2021-01-19 00:46 | ED.CHESTPAIN ---
HPI - Chest Pain General Chief Complaint: Chest Pain Stated Complaint: Chest Pain Time Seen by Provider: 01/19/21 00:45 Source: patient and EMS Mode of arrival: EMS Limitations: no limitations History of Present Illness HPI narrative: 70-year-old man with a history of type 2 diabetes, coronary artery disease status post CABG and stents, hypertension and a pacemaker brought in to the emergency department today by EMS for episodes of chest pain. Pain was in his anterior chest and started about 8:00 p.m. He had 3 episodes which resolved spontaneously. He went to bed and after that he had pain again. He took a sublingual nitro. When EMS arrived he was pain-free and he has been pain-free since. He denies nausea, vomiting, shortness of breath, abdominal pain, diarrhea, recent cough or cold symptoms, sore throat, fever and chills. MD complaint: chest pain Pertinent past history: coronary artery disease and CABG Onset (ago): hour(s) (4) Timing of current episode: episodic Prior episodes: Yes Onset: during rest Pain location: substernal Pain radiation: left arm, neck and left shoulder Relieving factors: nitroglycerin Exacerbating factors: nothing Treatment prior to arrival: nitroglycerin Risk Factors Coronary artery disease risk factors: diabetes, smoking history, hyperlipidemia and hypertension Related Data Home Medications Medication Instructions Recorded Confirmed Basaglar KwikPen U-100 Insulin 20 unit SUBCUT HS 03/27/19 01/19/21 Brilinta 90 mg PO BID 03/27/19 01/19/21 insulin aspart U-100 [Novolog See Rx Instructions .ROUTE .COMPLEX 03/27/19 01/19/21 Flexpen U-100 Insulin] isosorbide mononitrate 30 mg PO DAILY 04/27/20 01/19/21 Prolia 60 mg SUBCUT [id number] 07/16/20 01/19/21 hydralazine 50 mg PO TID 08/02/20 01/19/21 nifedipine [Adalat CC] 60 mg PO DAILY 08/02/20 01/19/21 Adult Low Dose Aspirin 81 mg PO DAILY 08/05/20 01/19/21 Allergy (diphenhydramine) 25 mg PO Q8-10H PRN 08/05/20 01/19/21 Miralax 17 g PO DAILY PRN 08/05/20 01/19/21 acetaminophen 650 mg PO Q8-10H PRN 08/05/20 01/19/21 carvedilol 50 mg PO BID 08/05/20 01/19/21 cholecalciferol (vitamin D3) 1,000 unit PO DAILY 08/05/20 01/19/21 pantoprazole 40 mg PO BID 08/05/20 01/19/21 senna 8.6 mg PO DAILY 08/05/20 01/19/21 ceftazidime 2 g IV BIDAC 08/16/20 01/19/21 daptomycin 500 mg IV DAILY 08/16/20 01/19/21 hydrocodone-acetaminophen See Rx Instructions .ROUTE .COMPLEX 08/16/20 01/19/21 metronidazole [Flagyl] 500 mg PO Q8H 08/16/20 01/19/21 atorvastatin 80 mg PO DAILY 09/03/20 01/19/21 bumetanide 1 mg PO DAILY 09/03/20 01/19/21 clonidine HCl 0.2 mg PO BID 09/03/20 01/19/21 denosumab [Prolia] See Rx Instructions .ROUTE .COMPLEX 09/03/20 01/19/21 gabapentin 300 mg PO BID 09/03/20 01/19/21 hydrochlorothiazide 25 mg PO DAILY 09/03/20 01/19/21 lisinopril 40 mg PO DAILY 09/03/20 01/19/21 magnesium oxide 400 mg PO DAILY 09/03/20 01/19/21 Allergies Allergy/AdvReac Type Severity Reaction Status Date / Time amoxicillin [From Augmentin] Allergy Rash Verified 09/03/20 17:32 clavulanic acid Allergy Rash Verified 09/03/20 17:32 [From Augmentin] metformin Allergy Other Verified 09/03/20 17:32 Review of Systems Review of Systems: All systems reviewed & are unremarkable except as noted in HPI and below Constitutional: Constitutional: Denies chills Comments: No fevers Eyes: Eyes: Denies loss of vision and Denies photophobia ENT: Denies facial pain, Denies nasal congestion and Denies sore throat Cardiovascular: Cardiovascular: Reports chest pain, Denies lightheadedness and Reports radiating jaw, neck or arm pain Respiratory: Respiratory: Denies cough, Denies excessive phlegm production and Denies dyspnea Gastrointestinal: Gastrointestinal: Denies abdominal pain, Denies diarrhea, Denies nausea and Denies vomiting Genitourinary: Genitourinary: Denies dysuria, Denies flank pain and Denies urinary frequency Musculoskeletal: Musculoskeletal: Denies arthralgias and Denies joint sw
--- NOTE | 2021-01-19 00:47 | ECG_ITS ---
Measurements Intervals [place] Rate: 62 P: -28 MD: 197 QRS: -59 QRSD: 155 T: 59 QT: 495 QTc: 504 Interpretive Statements ELECTRONIC ATRIAL PACEMAKER WITH INHIBITION ELECTRONIC VENTRICULAR PACEMAKER BASELINE ARTIFACT- I, II, III, AVR, AVL NO FURTHER INTERPRETATION IS POSSIBLE ATYPICAL ECG Electronically Signed On 01-19-2021 22:42:02 CDT by Kenny Lomax D.O.
[2021-01-19] MEDS: ASPIRIN 81 MG CHEWABLE TABLET 324 MG PO (01:12)
[2021-01-19 01:31] LABS: Basophils Absolute Auto 0.07 K/mm3 (0.00-0.10); Basophils Percent Auto 0.6 % (0.0-1.0); Eosinophils Absolute Auto 0.29 K/mm3 (0.02-0.50); Eosinophils Percent Auto 2.5 % (1.0-6.0); Hematocrit 30.6 % (37.0-46.0); Hemoglobin 9.8 g/dL (12.4-15.3); Immature Granulocyte Absolute 0.06 K/mm3 (0.00-0.00); Immature Granulocyte Percent A 0.5 % (0.0-0.0); Lymphocytes Absolute Auto 0.55 K/mm3 (1.10-4.50); Lymphocytes Percent Auto 4.8 % (18.0-42.0); Mean Corpuscular Hemoglobin 25.9 pg (27.0-31.0); Mean Corpuscular Volume 80.7 fL (78.0-102.0); Mean Platelet Volume 10.4 fl (8.7-11.0); Monocytes Absolute Auto 1.37 K/mm3 (0.10-0.90); Neutrophils Absolute Auto 9.1 K/mm3 (1.7-7.2); Neutrophils Percent Auto 79.6 % (50.0-70.0); Platelet Count Result 298 K/mm3 (150-420); Red Blood Count 3.79 M/mm3 (4.70-6.10); Red Cell Distribution Width 18.9 % (11.6-14.4); White Blood Count 11.5 K/mm3 (4.8-10.8)
[2021-01-19 01:47] LABS: INR 1.2; Partial Thromboplastin Time 32.8 SEC (23.90-30.70)
[2021-01-19 01:53] LABS: Alanine Aminotransferase 19 U/L (16-63); Albumin Level 2.9 g/dL (3.4-5.0); Alkaline Phosphatase 88 U/L (46-116); Anion Gap 11 mmol/L (8-16); Aspartate Amino Transferase 13 U/L (15-37); Bilirubin,Total 0.4 mg/dL (0.00-1.00); Blood Urea Nitrogen 55 mg/dL (7-18); Carbon Dioxide 28 mmol/L (21-32); Chloride 96 mmol/L (98-108); Estimated CRCL calculation 23 ml/min; Estimated Glomerular Filt Rate 22; Glucose 303 mg/dL (70-99); NT Pro B Type Natriuretic Pept 11520 pg/mL (0-125); Osmolality Calculated 306 mOsm/kg (285-295); Sodium 135 mmol/L (136-145); Total Protein 7.4 g/dL (6.4-8.2)
[2021-01-19 01:56] LABS: Troponin I 50.1 ng/L (0.00-60.4)
[2021-01-19 02:11] LABS: D Dimer 0.55 mg/L (0.19-0.50)
[2021-01-19 02:31] LABS: SARS-CoV-2 RNA PCR Negative (Negative)
[2021-01-19] MEDS: SODIUM CHLORIDE 0.9% IV 500 ML 999 ML IV CONT (03:04)
--- NOTE | 2021-01-19 03:46 | ADMGEN ---
This patient, Justin Peguero, was admitted to 2nd Floor Room 204-2. Patient oriented to hospital policies and general routines including ID bracelet, bed and alarms, visiting hours, pain management, procedures, bathroom and other care routines, personal items, smoking policy, room service/diet, and visiting hours. Information on how to activate the Rapid Response Team has been discussed. Patient are encouraged to report perceived risks to care and to ask questions if they do not understand what they are told or what they should do. Patient alert and oriented. Color pink. Skin w/d. Resp even and unlabored. Lungs clear. Abd soft and non-distended. BS+. Patient has wound vac on right foot from infection following amputation of first and second toes in Mar and Apr. Denies chest pain @ this time. Call light in reach.
[2021-01-19 04:27] LABS: Troponin I 46.4 ng/L (0.00-60.4)
[2021-01-19] MEDS: metroNIDAZOLE 250 MG TABLET 500 MG PO ×3 (05:57→21:25)
[2021-01-19 07:03] LABS: Basophils Absolute Auto 0.06 K/mm3 (0.00-0.10); Basophils Percent Auto 0.7 % (0.0-1.0); Eosinophils Absolute Auto 0.13 K/mm3 (0.02-0.50); Eosinophils Percent Auto 1.5 % (1.0-6.0); Hematocrit 28.8 % (37.0-46.0); Hemoglobin 9.1 g/dL (12.4-15.3); Immature Granulocyte Absolute 0.05 K/mm3 (0.00-0.00); Immature Granulocyte Percent A 0.6 % (0.0-0.0); Lymphocytes Absolute Auto 0.83 K/mm3 (1.10-4.50); Lymphocytes Percent Auto 9.4 % (18.0-42.0); Mean Corpuscular HGB Conc 31.6 g/dL (32.0-36.0); Mean Corpuscular Hemoglobin 25.8 pg (27.0-31.0); Mean Corpuscular Volume 81.6 fL (78.0-102.0); Mean Platelet Volume 10.7 fl (8.7-11.0); Monocytes Absolute Auto 1.19 K/mm3 (0.10-0.90); Monocytes Percent Auto 13.5 % (2.0-11.0); Neutrophils Absolute Auto 6.5 K/mm3 (1.7-7.2); Neutrophils Percent Auto 74.3 % (50.0-70.0); Platelet Count Result 293 K/mm3 (150-420); Red Blood Count 3.53 M/mm3 (4.70-6.10); Red Cell Distribution Width 18.9 % (11.6-14.4); White Blood Count 8.8 K/mm3 (4.8-10.8)
[2021-01-19 07:23] LABS: Alanine Aminotransferase 20 U/L (16-63); Albumin Level 2.7 g/dL (3.4-5.0); Alkaline Phosphatase 82 U/L (46-116); Anion Gap 8 mmol/L (8-16); Aspartate Amino Transferase 10 U/L (15-37); Bilirubin,Total 0.4 mg/dL (0.00-1.00); Blood Urea Nitrogen 54 mg/dL (7-18); Calcium 8.5 mg/dL (8.5-10.1); Carbon Dioxide 29 mmol/L (21-32); Chloride 98 mmol/L (98-108); Estimated CRCL calculation 31 ml/min; Estimated Glomerular Filt Rate 23; Glucose 265 mg/dL (70-99); Osmolality Calculated 303 mOsm/kg (285-295); Potassium 5.1 mmol/L (3.5-5.1); Sodium 135 mmol/L (136-145); Total Protein 6.8 g/dL (6.4-8.2)
[2021-01-19 07:24] LABS: Troponin I 48.7 ng/L (0.00-60.4)
[2021-01-19 08:03] LABS: Glucose Point of Care 295 mg/dl (65-105)
[2021-01-19] MEDS: BUMETANIDE 1 MG TABLET PO (08:43)
[2021-01-19] MEDS: TICAGRELOR 90 MG TABLET PO ×2 (08:43→21:27)
[2021-01-19] MEDS: hydrALAZINE HCL 25 MG TABLET 50 MG PO ×3 (08:44→17:22)
[2021-01-19] MEDS: ASPIRIN 81 MG CHEWABLE TABLET PO (08:44)
[2021-01-19] MEDS: ISOSORBIDE MONONITRATE 30 MG TAB.ER.24H PO (08:44)
[2021-01-19] MEDS: CHOLECALCIFEROL 1,000 UNITS TABLET 1000 UNITS PO (08:44)
[2021-01-19] MEDS: cloNIDine HCL 0.2 MG TABLET PO ×2 (08:44→17:22)
[2021-01-19] MEDS: hydroCHLOROthiazide 25 MG TABLET PO (08:44)
[2021-01-19] MEDS: MAGNESIUM OXIDE 400 MG TABLET PO (08:44)
[2021-01-19] MEDS: PANTOPRAZOLE 40 MG TABLET PO ×2 (08:44→17:22)
[2021-01-19] MEDS: SENNOSIDES 8.6 MG TABLET PO (08:44)
[2021-01-19] MEDS: ATORVASTATIN 40 MG TABLET 80 MG PO (08:44)
[2021-01-19] MEDS: carvediloL 12.5 MG TABLET 50 MG PO ×2 (08:45→21:26)
[2021-01-19] MEDS: GABAPENTIN 300 MG CAPSULE PO ×2 (08:45→17:22)
[2021-01-19] MEDS: ENOXAPARIN 100 MG/ML SYRINGE 97 MG SUB-Q ×2 (08:56→21:24)
--- NOTE | 2021-01-19 09:11 | PM.IMHP ---
H&P: HPI History of Present Illness Date/Time: 01/19/21 09:11 This is a 70-year-old male who presented to urgent care with complaints of chest pain. Patient has a past medical history type 2 diabetes CAD, status post CABG with stent placement, hypertension, pacemaker placement, chronic kidney disease, congestive heart failure, PAD, upper and lower extremity amputation. According to patient he developed CP yesterday. Patient noted he was at rest when he experienced CP, patient took a nitro at that time and cp resolved and he decided to go to sleep. Patient noted that he was woke up out of his sleep with cp and took another nitro and grabbed his phone and went to the restroom at that time patient noted he fainted he denies hitting his head all he can recall is waking up.Patient noted that he grabbed a old phone that did not work. At that time he decided the body on his life alert to call for emergency assistance. Patient notes that he has not had any more chest pain since his admission he still continues to have shortness of breath but this is chronic for him it has worsened. Vital signs 98.2, 60, 16, 96% on room air, 130/86, WBCs 11.5, hemoglobin 9.1, hematocrit 28.8, platelets 293, D-dimer 0.55, sodium 135, potassium 5.0, BUN 55, creatinine 2.87, glucose 163, liver function test within normal limits, troponin 50.1, BNP 37932, Covid negative, chest x-ray indicates Minimal left basilar atelectasis, EKG paced with in the 70s. Patient being admitted to rule out ME, congestive heart failure and syncopal episode <CHRISTAL Aguero - Last Filed: 01/19/21 13:35> Chief Complaint: Syncopal episode, chest pains <CHRISTAL Aguero - Last Filed: 01/19/21 13:35> Review of Systems Review of Systems: A 14 organ system Review of Systems was performed and pertinent positives included in the HPI, otherwise remaining ROS is negative. <CHRISTAL Aguero - Last Filed: 01/19/21 13:35> [facility] Past Medical History Medical History: Medical History Aortic valve disease CAD (coronary artery disease) Heart disease Hypertension Hypertension associated with diabetes IDDM (insulin dependent diabetes mellitus) Pacemaker PAD (peripheral artery disease) 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 <CHRISTAL Aguero - Last Filed: 01/19/21 13:35> Surgical History Surgical History: Surgical History H/O left inguinal hernia repair H/O parathyroidectomy History of aortic valve repair History of coronary artery stent placement S/P CABG x 6 <CHRISTAL Aguero - Last Filed: 01/19/21 13:35> Family History Family History: Family History Mother Hypertension Father Heart disease Mitral valve replaced Sibling Heart disease Sibling Heart disease Sibling Heart disease Sibling Heart disease <CHRISTAL Aguero - Last Filed: 01/19/21 13:35> Social History Social History: Social History Smoking packs per day: 2 Smoking cigarettes per day: 40.0 Smoking status: Former smoker Tobacco type: cigarettes Second hand tobacco smoke exposure: No Smoking end date: 03/29/75 Additional smoking assessment comments: STOPPED SMOKING 1975 Alcohol intake: former Drinks per week: 30 Alcohol use details: rarely drinks alcohol Substance use: never Substance use type: marijuana Last use: 1960 Gender identity (if verbalized by the patient): Male Spiritual care concerns: No <CHRISTAL Aguero - Last Filed: 01/19/21 13:35> Meds Home Medications and Allergies Home medications: Home Medications Medication Instructions Recorded Confirmed Type Silvia Reese U-100 Insulin 20 unit SUBCUT HS 03/27/19 01/19/21
[2021-01-19 09:53] LABS: NT Pro B Type Natriuretic Pept 12411 pg/mL (0-125)
[2021-01-19 11:35] LABS: Glucose Point of Care 238 mg/dl (65-105)
[2021-01-19] MEDS: FUROSEMIDE INJ 40 MG/4 ML VIAL IV PUSH (12:21)
[2021-01-19 15:08] LABS: Appearance Urine Clear (Clear); Bilirubin Urine Negative (Negative); Color Urine Light Yellow (Yellow); Glucose Urine UA 3+ (Negative); Ketones Urine Negative (Negative); Leukocyte Esterase Ur Negative LEU/UL (Negative); Nitrate Urine Negative (Negative); Protein Urine 2+ (Negative); Specific Grav Ur 1.015 (1.010-1.020); Urobilinogen Urine 0.2 mg/dL (0.2-1.0); pH Urine 6.5 (5.0-8.0)
[2021-01-19 15:20] LABS: Add Urine Microscopic? YES; Bacteria Urine None seen /hpf; Blood Urine Trace-lysed (Negative); Squamous Epithelial Cell Urine None seen /hpf (Few); WBC Urine 0-3 /hpf (0-3)
[2021-01-19 17:40] LABS: Glucose Point of Care 150 mg/dl (65-105)
[2021-01-19] MEDS: INSULIN GLARGINE (*BKC) 100 UNITS/ML 20 UNITS SUB-Q (21:32)
[2021-01-19 21:37] LABS: Glucose Point of Care 222 mg/dl (65-105)
[2021-01-20 04:00] VITALS: BP 129/58; PULSE 62; RESP 18; TEMP 37.2; O2SAT 94
[2021-01-20 05:22] LABS: Hematocrit 27.9 % (37.0-46.0); Hemoglobin 8.9 g/dL (12.4-15.3); Mean Corpuscular HGB Conc 31.9 g/dL (32.0-36.0); Mean Corpuscular Hemoglobin 26.2 pg (27.0-31.0); Mean Corpuscular Volume 82.1 fL (78.0-102.0); Platelet Count Result 288 K/mm3 (150-420); Red Cell Distribution Width 18.9 % (11.6-14.4); White Blood Count 6.1 K/mm3 (4.8-10.8)
[2021-01-20 05:39] LABS: Alanine Aminotransferase 23 U/L (16-63); Albumin Level 2.6 g/dL (3.4-5.0); Alkaline Phosphatase 83 U/L (46-116); Anion Gap 10 mmol/L (8-16); Aspartate Amino Transferase < 10 U/L (15-37); Bilirubin,Total 0.4 mg/dL (0.00-1.00); Blood Urea Nitrogen 59 mg/dL (7-18); Calcium 8.6 mg/dL (8.5-10.1); Carbon Dioxide 29 mmol/L (21-32); Chloride 99 mmol/L (98-108); Estimated CRCL calculation 26 ml/min; Estimated Glomerular Filt Rate 23; Glucose 205 mg/dL (70-99); Magnesium 1.9 mg/dL (1.8-2.4); Osmolality Calculated 308 mOsm/kg (285-295); Potassium 4.1 mmol/L (3.5-5.1); Sodium 138 mmol/L (136-145); Total Protein 6.7 g/dL (6.4-8.2)
[2021-01-20 05:51] LABS: Hemoglobin A1C 9.8 % (<5.7)
[2021-01-20] MEDS: metroNIDAZOLE 250 MG TABLET 500 MG PO (05:54)
[2021-01-20 07:50] LABS: NT Pro B Type Natriuretic Pept 8167 pg/mL (0-125)
[2021-01-20 07:53] LABS: Glucose Point of Care 208 mg/dl (65-105)
[2021-01-20 08:00] VITALS: BP 121/78; PULSE 62; RESP 18; TEMP 36.8; O2SAT 96
[2021-01-20] MEDS: ENOXAPARIN 100 MG/ML SYRINGE 97 MG SUB-Q (08:38)
[2021-01-20] MEDS: ISOSORBIDE MONONITRATE 30 MG TAB.ER.24H PO (08:39)
[2021-01-20] MEDS: TICAGRELOR 90 MG TABLET PO (08:39)
[2021-01-20] MEDS: ATORVASTATIN 40 MG TABLET 80 MG PO (08:39)
[2021-01-20] MEDS: ASPIRIN 81 MG CHEWABLE TABLET PO (08:39)
[2021-01-20] MEDS: SENNOSIDES 8.6 MG TABLET PO (08:39)
[2021-01-20] MEDS: BUMETANIDE 1 MG TABLET PO (08:39)
[2021-01-20 08:40] VITALS: PULSE 60
[2021-01-20] MEDS: cloNIDine HCL 0.2 MG TABLET PO (08:40)
[2021-01-20] MEDS: MAGNESIUM OXIDE 400 MG TABLET PO (08:40)
[2021-01-20] MEDS: PANTOPRAZOLE 40 MG TABLET PO (08:40)
[2021-01-20] MEDS: GABAPENTIN 300 MG CAPSULE PO (08:40)
[2021-01-20] MEDS: CHOLECALCIFEROL 1,000 UNITS TABLET 1000 UNITS PO (08:40)
[2021-01-20] MEDS: hydrALAZINE HCL 25 MG TABLET 50 MG PO (08:40)
[2021-01-20] MEDS: hydroCHLOROthiazide 25 MG TABLET PO (08:40)
[2021-01-20] MEDS: carvediloL 12.5 MG TABLET 50 MG PO (08:40)
[2021-01-20 12:00] VITALS: BP 136/60; PULSE 60; RESP 18; TEMP 36.9; O2SAT 96
[2021-01-20 12:02] LABS: Glucose Point of Care 179 mg/dl (65-105)
--- NOTE | 2021-01-20 12:35 | P.DS_ITS ---
DS: Admitting Diagnosis Discharge Date 01/20/2021 Admitting Diagnosis Congestive heart failure, chest pain, syncopal episode DS: Discharge Diagnosis Discharge Diagnosis (1) Chest pain: Qualifiers: Chest pain type: precordial pain Qualified Code(s): R07.2 - Precordial pain Code(s): R07.9 - Chest pain, unspecified Status: Acute Assessment and Plan: * not believed to be cardiac related * trop neg x3 * continue tele * EKG paced with heart rate in the 60s * echo at out side hospital normal EF no WMA * continue eliquis * f/u of Dr. Landa (2) PAD (peripheral artery disease): Code(s): I73.9 - Peripheral vascular disease, unspecified Status: Acute Assessment and Plan: * continue atorvastatin, Plavix, Brilinta * s/p femoropopliteal bypass * severe aortic stenosis s/p TAVR, AV block (3) Anxiety: Code(s): F41.9 - Anxiety disorder, unspecified Status: Acute Assessment and Plan: * ativan (4) Chronic kidney disease: Code(s): N18.9 - Chronic kidney disease, unspecified Status: Acute Assessment and Plan: * * STAGE 3 requested lab and MR from [facility] * Will contact [facility] kidney and dialysis at [phone] tomorrow * BUN 54, Cr 2.78, GFR 23 baseline Cr appears to be betweem 1.8-2.1 * avoid neprotoxic agents * will renal dose medication (5) Amputation of one or more toes: Code(s): S98.139A - Complete traumatic amputation of one unspecified lesser toe, initial encounter Status: Acute Assessment and Plan: * Left upper extremity fifth digit and left lower extremity second and third digit (6) Wound cellulitis after surgery: Code(s): T81.49XA - Infection following a procedure, other surgical site, initial encounter Status: Acute Assessment and Plan: * Secondary to PVD * continue Flagyl * requested record from wound care clinic * On admission WBCs 11.5 currently 8.8 * s/p debridement and wound vac (7) Pacemaker: Code(s): Z95.0 - Presence of cardiac pacemaker Status: Acute Assessment and Plan: * BiV pacemaker (8) IDDM (insulin dependent diabetes mellitus): Code(s): E11.9 - Type 2 diabetes mellitus without complications; Z79.4 - correction (current) use of insulin Status: Chronic Assessment and Plan: * Glucose in the 200s * continue accucheck, SSI, and hypoglycemia protocol * continue diabetic diet * will adjust medication as needed * a1c 9.8 (9) Heart disease: Code(s): I51.9 - Heart disease, unspecified Status: Acute Assessment and Plan: * BNP [id number] * lasix 40 mg once * echo from [facility] requested * continue I&O, review * cont bumex, HCTZ daily * LVEF 55% * Prosthetic aortic valve with a calculated ARMIN area 1.1 CM2 (10) Elevated d-dimer: Code(s): R79.89 - Other specified abnormal findings of blood chemistry Status: Acute Assessment and Plan: * dimer 0.55 * started lovenox weightbase * v/q scan LOW PROBABLY (11) Hypertension: Code(s): I10 - Essential (primary) hypertension Status: Acute Assessment and Plan: * STABLE * continue clonidine,coreg, hydralazine, isosorbide, * vs as ordered * adjust medication as needed (12) Syncopal episodes: Code(s): R55 - Syncope and collapse Status: Acute Assessment and Plan: * Etiology unknown * Neurochecks every shift ordered * Awaiting ech
--- NOTE | 2021-01-20 12:35 | PM.DS ---
DS: Admitting Diagnosis Discharge Date 01/20/2021 Admitting Diagnosis Congestive heart failure, chest pain, syncopal episode DS: Discharge Diagnosis Discharge Diagnosis (1) Chest pain: Qualifiers: Chest pain type: precordial pain Qualified Code(s): R07.2 - Precordial pain Code(s): R07.9 - Chest pain, unspecified Status: Acute Assessment and Plan: not believed to be cardiac related trop neg x3 continue tele EKG paced with heart rate in the 60s echo at out side hospital normal EF no WMA continue eliquis f/u of Dr. Landa (2) PAD (peripheral artery disease): Code(s): I73.9 - Peripheral vascular disease, unspecified Status: Acute Assessment and Plan: continue atorvastatin, Plavix, Brilinta s/p femoropopliteal bypass severe aortic stenosis s/p TAVR, AV block (3) Anxiety: Code(s): F41.9 - Anxiety disorder, unspecified Status: Acute Assessment and Plan: ativan (4) Chronic kidney disease: Code(s): N18.9 - Chronic kidney disease, unspecified Status: Acute Assessment and Plan: STAGE 3 requested lab and MR from [facility] Will contact [facility] kidney [facility] dialysis at [phone] tomorrow BUN 54, Cr 2.78, GFR 23 baseline Cr appears to be betweem 1.8-2.1 avoid neprotoxic agents will renal dose medication (5) Amputation of one or more toes: Code(s): S98.139A - Complete traumatic amputation of one unspecified lesser toe, initial encounter Status: Acute Assessment and Plan: Left upper extremity fifth digit and left lower extremity second and third digit (6) Wound cellulitis after surgery: Code(s): T81.49XA - Infection following a procedure, other surgical site, initial encounter Status: Acute Assessment and Plan: Secondary to PVD continue Flagyl requested record from wound care clinic On admission WBCs 11.5 currently 8.8 s/p debridement and wound vac (7) Pacemaker: Code(s): Z95.0 - Presence of cardiac pacemaker Status: Acute Assessment and Plan: BiV pacemaker (8) IDDM (insulin dependent diabetes mellitus): Code(s): E11.9 - Type 2 diabetes mellitus without complications; 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 Status: Chronic Assessment and Plan: Glucose in the 200s continue accucheck, SSI, and hypoglycemia protocol continue diabetic diet will adjust medication as needed a1c 9.8 (9) Heart disease: Code(s): I51.9 - Heart disease, unspecified Status: Acute Assessment and Plan: BNP [id number] lasix 40 mg once echo from [facility] requested continue I&O, review cont bumex, HCTZ daily LVEF 55% Prosthetic aortic valve with a calculated ARMIN area 1.1 CM2 (10) Elevated d-dimer: Code(s): R79.89 - Other specified abnormal findings of blood chemistry Status: Acute Assessment and Plan: dimer 0.55 started lovenox weightbase v/q scan LOW PROBABLY (11) Hypertension: Code(s): I10 - Essential (primary) hypertension Status: Acute Assessment and Plan: STABLE continue clonidine,coreg, hydralazine, isosorbide, vs as ordered adjust medication as needed (12) Syncopal episodes: Code(s): R55 - Syncope and collapse Status: Acute Assessment and Plan: Etiology unknown Neurochecks every shift ordered Awaiting echo from previous hospital CT of the head in the a.m. DS: Summary Hospital Course Reason for hospitalization: cp, congestive heart failure, syncopal episode Hospital Course: This is a 70-year-old male who presented to urgent care with complaints of chest pain. Patient has a past medical history type 2 diabetes CAD, status post CABG with stent placement, hypertension, pacemaker placement, chronic kidney disease, congestive heart failure, PAD, upper and lower extremity amputation. According to patient he developed CP yeste
--- NOTE | 2021-01-21 12:04 | PC.NURSE ---
Pt states he received and understood his instructions. States he can't find his help button . Chief Underwriter stated the hospital would check for it here.
== END 2021-01-20 13:10 | disposition home health service (06) ==
LOC: CHSED 02:35 → CHS2ND 01-20 07:47
PROVIDERS: Nurse Practitioner; Admitting Provider Emergency Medicine; Emergency Provider Emergency Medicine; Visit Provider Emergency Medicine
DX: R07.9 Chest pain, unspecified (principal); I50.9 Heart failure, unspecified; I13.0 Hypertensive heart and chronic kidney disease with heart failure and stage 1 through stage 4 chronic kidney disease, or unspecified chronic kidney disease; N18.9 Chronic kidney disease, unspecified; E11.22 Type 2 diabetes mellitus with diabetic chronic kidney disease; E11.51 Type 2 diabetes mellitus with diabetic peripheral angiopathy without gangrene; I25.10 Atherosclerotic heart disease of native coronary artery without angina pectoris; T81.49XD Infection following a procedure, other surgical site, subsequent encounter; Z20.822 Contact with and (suspected) exposure to COVID-19; Z95.5 Presence of coronary angioplasty implant and graft; Z95.1 Presence of aortocoronary bypass graft; Z95.0 Presence of cardiac pacemaker; Z79.4 Long term (current) use of insulin; Z87.891 Personal history of nicotine dependence; Z89.022 Acquired absence of left finger(s); Z89.422 Acquired absence of other left toe(s)
CPT/HCPCS: 36415; 71045; 78580; 80053; 81001; 82948; 83036; 83735; 83880; 84484; 85025; 85027; 85380; 85610; 85730; 93005; 96372; 96374; 97165; 99285; A9270; A9540; C9803; G0378; J1650; J1815; J1940; J7040; U0003; U0005

== ENCOUNTER 2021-02-12 13:29 | Emergency (ER) | payer MEDICARE, MEDICAID, SELFPAY ==
[2021-02-12] VITALS (7 sets, daily range): BP systolic 118–149; BP diastolic 56–73; PULSE 60–71; RESP 20; TEMP 36.9; O2SAT 97–99
--- NOTE | ~2021-02-12 | XR_ITS ---
XR chest 1V portable DATE: 02/12/2021 14:04 INDICATION: Chest pain, bilateral TECHNIQUE: Portable upright AP chest on 02/12/2021 at 1402 hours COMPARISON: 01/20/2021 portable AP chest FINDINGS: Status post sternotomy. Normal heart size. Coronary artery calcification or stent. Aortic c alcification. Triple lead left-sided pacemaker device with leads overlying right atrium and right ventricle and cor onary sinus. No pulmonary infiltrate or consolidation, pleural effusion or pulmonary vascular congestion or pneumo thorax. IMPRESSION: Status post sternotomy. No active cardiopulmonary disease Aortic calcification Triple lead left-sided pacemaker device Reviewed, dictated and finalized at location A. FIELD TECHNICIAN
--- NOTE | 2021-02-12 13:40 | ECG_ITS ---
Measurements Intervals [place] Rate: 60 P: 236 NE: 248 QRS: 265 QRSD: 159 T: 24 QT: 489 QTc: 489 Interpretive Statements ELECTRONIC ATRIAL PACEMAKER ELECTRONIC VENTRICULAR PACEMAKER NO FURTHER INTERPRETATION IS POSSIBLE ATYPICAL ECG Electronically Signed On 02-12-2021 14:20:18 TRAFFIC TECHNICIAN by Kenny Lomax D.O.
[2021-02-12 14:00] LABS: Basophils Absolute Auto 0.03 K/mm3 (0.00-0.10); Basophils Percent Auto 0.4 % (0.0-1.0); Eosinophils Absolute Auto 0.66 K/mm3 (0.02-0.50); Eosinophils Percent Auto 8.3 % (1.0-6.0); Hemoglobin 10.4 g/dL (12.4-15.3); Immature Granulocyte Absolute 0.04 K/mm3 (0.00-0.00); Immature Granulocyte Percent A 0.5 % (0.0-0.0); Lymphocytes Absolute Auto 0.75 K/mm3 (1.10-4.50); Lymphocytes Percent Auto 9.4 % (18.0-42.0); Mean Corpuscular HGB Conc 32.5 g/dL (32.0-36.0); Mean Corpuscular Hemoglobin 27.2 pg (27.0-31.0); Mean Corpuscular Volume 83.8 fL (78.0-102.0); Mean Platelet Volume 8.6 fl (8.7-11.0); Monocytes Absolute Auto 1.01 K/mm3 (0.10-0.90); Monocytes Percent Auto 12.7 % (2.0-11.0); Neutrophils Absolute Auto 5.5 K/mm3 (1.7-7.2); Neutrophils Percent Auto 68.7 % (50.0-70.0); Platelet Count Result 398 K/mm3 (150-420); Red Blood Count 3.82 M/mm3 (4.70-6.10); Red Cell Distribution Width 19.7 % (11.6-14.4)
[2021-02-12 14:23] LABS: Lactic Acid Reflex 1.3 mmol/L (0.4-2.0)
[2021-02-12 14:39] LABS: Alanine Aminotransferase 19 U/L (16-63); Albumin Level 3.1 g/dL (3.4-5.0); Alkaline Phosphatase 108 U/L (46-116); Anion Gap 9 mmol/L (8-16); Aspartate Amino Transferase 11 U/L (15-37); Bilirubin,Total 0.3 mg/dL (0.00-1.00); Blood Urea Nitrogen 43 mg/dL (7-18); Calcium 9.6 mg/dL (8.5-10.1); Carbon Dioxide 28 mmol/L (21-32); Chloride 97 mmol/L (98-108); Estimated Glomerular Filt Rate 27; Glucose 166 mg/dL (70-99); Osmolality Calculated 292 mOsm/kg (285-295); Potassium 4.9 mmol/L (3.5-5.1); Sodium 134 mmol/L (136-145); Total Protein 7.2 g/dL (6.4-8.2)
[2021-02-12 14:41] LABS: Troponin I 93.7 ng/L (0.00-60.4)
[2021-02-12 14:42] LABS: NT Pro B Type Natriuretic Pept 2078 pg/mL (0-125)
[2021-02-12 15:13] LABS: Add Urine Microscopic? YES; Appearance Urine Clear (Clear); Bilirubin Urine Negative (Negative); Blood Urine Negative (Negative); Color Urine Light Yellow (Yellow); Glucose Urine UA Negative (Negative); Ketones Urine Negative (Negative); Leukocyte Esterase Ur Negative (Negative); Nitrate Urine Negative (Negative); Protein Urine Trace (Negative); Specific Grav Ur 1.015 (1.010-1.020); Urobilinogen Urine 0.2 mg/dL (0.2-1.0)
[2021-02-12 15:21] LABS: Bacteria Urine None seen /hpf; RBC Urine 0-2 /hpf (0-2); Squamous Epithelial Cell Urine None seen /hpf (Few); WBC Urine 0-3 /hpf (0-3)
[2021-02-12 16:34] LABS: Troponin I 76.2 ng/L (0.00-60.4)
--- NOTE | 2021-02-12 16:38 | PC.NURSE ---
spoke with [place] transfer line at 16:[address] Irby the patients hand collator for consult
--- NOTE | 2021-02-12 17:01 | PC.NURSE ---
DR Kebede consulted with Dr Villegas decided on a transfer spoke with Carolynn on the transfer line at [place] at 17:01
--- NOTE | 2021-02-12 17:25 | ED.CHESTPAIN ---
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 Onset (ago): hour(s) (5) Timing of current episode: episodic (2 episodes of chest pain, left then right with right upper limb pain) Prior episodes: Yes Onset: during exertion Pain location: left chest and right chest Pain radiation: right arm Pain scale (0-10): 6 Quality: aching and heaviness Relieving factors: nitroglycerin Exacerbating factors: exertion Treatment prior to arrival: nitroglycerin Risk Factors Coronary artery disease risk factors: diabetes Related Data Home Medications Medication Instructions Recorded Confirmed Basaglar KwikPen U-100 Insulin 20 unit SUBCUT HS 03/27/19 02/12/21 Brilinta 90 mg PO BID 03/27/19 02/12/21 insulin aspart U-100 [Novolog See Rx Instructions .ROUTE .COMPLEX 03/27/19 02/12/21 Flexpen U-100 Insulin] Adult Low Dose Aspirin 81 mg PO DAILY 08/05/20 02/12/21 Allergy (diphenhydramine) 25 mg PO Q8-10H PRN 08/05/20 02/12/21 Miralax 17 g PO DAILY PRN 08/05/20 02/12/21 acetaminophen 650 mg PO Q8-10H PRN 08/05/20 02/12/21 cholecalciferol (vitamin D3) 1,000 unit PO DAILY 08/05/20 02/12/21 pantoprazole 40 mg PO BID 08/05/20 02/12/21 senna 8.6 mg PO DAILY 08/05/20 02/12/21 Prolia See Rx Instructions .ROUTE .COMPLEX 09/03/20 02/12/21 gabapentin 300 mg PO BID 09/03/20 02/12/21 magnesium oxide 400 mg PO DAILY 09/03/20 02/12/21 Allergies Allergy/AdvReac Type Severity Reaction Status Date / Time amoxicillin [From Augmentin] Allergy Rash Verified 02/12/21 15:02 clavulanic acid Allergy Rash Verified 02/12/21 15:02 [From Augmentin] metformin Allergy Other Verified 02/12/21 15:02 Review of Systems Review of Systems: All systems reviewed & are unremarkable except as noted in HPI and below Cardiovascular: Cardiovascular: Reports chest pain Comments: recurrent with right arm pain PMFSH Past Medical History Medical History Aortic valve disease CAD (coronary artery disease) Heart disease Hypertension Hypertension associated with diabetes IDDM (insulin dependent diabetes mellitus) Pacemaker PAD (peripheral artery disease) 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 Surgical History Surgical History H/O left inguinal hernia repair H/O parathyroidectomy History of aortic valve repair History of coronary artery stent placement S/P CABG x 6 Family History Family History Mother Hypertension Father Heart disease Mitral valve replaced Sibling Heart disease Sibling Heart disease Sibling Heart disease Sibling Heart disease Social History Social History Smoking packs per day: 2 Smoking cigarettes per day: 40.0 Smoking status: Former smoker Tobacco type: cigarettes Second hand tobacco smoke exposure: No Smoking end date: 03/29/75 Additional smoking assessment comments: STOPPED SMOKING 1975 Alcohol intake: former Drinks per week: 30 Alcohol use details: rarely drinks alcohol Substance use: never Substance use type: marijuana Last use: 1959 Gender identity (if verbalized by the patient): Male Spiritual care concerns: No Exam Const: General: no acute distress and alert Nutritional Appearance: well nourished Orientation/consciousness: patient oriented x3 Limitations: no limitations HENMT: Ears: external ears normal and TM's normal bilaterally General nose exam: Normal external nose present and Normal nares present Mouth: Yes lip normal and Yes moist mucous
[2021-02-12] MEDS: FUROSEMIDE INJ 40 MG/4 ML VIAL IV PUSH (18:23)
== END 2021-02-12 19:00 | disposition short-term general hospital (02) ==
PROVIDERS: Emergency Provider Emergency Medicine
DX: I20.0 Unstable angina (principal); I21.4 Non-ST elevation (NSTEMI) myocardial infarction; I50.9 Heart failure, unspecified; I10 Essential (primary) hypertension; E11.9 Type 2 diabetes mellitus without complications; Z79.4 Long term (current) use of insulin; I73.9 Peripheral vascular disease, unspecified; Z87.891 Personal history of nicotine dependence
CPT/HCPCS: 36415; 71045; 80053; 81001; 83605; 83880; 84484; 85025; 93005; 96374; 99285; J1940

== ENCOUNTER 2021-04-06 21:28 | Emergency (ER) | payer MEDICARE, MEDICAID, SELFPAY ==
[2021-04-06] VITALS (9 sets, daily range): BP systolic 119–149; BP diastolic 65–82; PULSE 86–100; RESP 22–36; TEMP 36; O2SAT 80–98
--- NOTE | ~2021-04-06 | XR_ITS ---
EXAMINATION: XR chest 1V portable DATE: 04/06/2021 22:09 INDICATION: Chest pain. Dyspnea. TECHNIQUE: frontal view of the chest was obtained. COMPARISON: Chest radiograph dated 02/12/2021 FINDINGS: Increased interstitial and mild airspace opacities in the bilateral mid and lower lung zones. Periphe ral Perry B-lines at the lateral right lower lung zone. No pneumothorax. Small bilateral pleural eff usions not excludable. Heart size is normal. Median sternotomy wires and mediastinal surgical clips a re seen, likely from prior coronary artery bypass grafting. There is also been coronary artery stenti ng. There is also been prior aortic valve repair. Three lead pacemaker seen with leads projecting ove r the expected locations of the right atrial appendage, apex of the right ventricle and overlying the left ventricle likely having traversed the coronary sinus. IMPRESSION: 1. Interstitial and mild airspace opacities in bilateral mid and lower lung zones most likely combina tion of mild pulmonary edema, small bilateral pleural effusions and basilar atelectasis although pneu monia not excludable. Reviewed, dictated and finalized at location A. ICE SPRINKLER HELPER IMPRESSION: 1. Interstitial and mild airspace opacities in bilateral mid and lower lung zon es most likely combination of mild pulmonary edema, small bilateral pleural eff usions and basilar atelectasis although pneumonia not excludable.
--- NOTE | 2021-04-06 21:32 | ECG_ITS ---
Measurements Intervals [place] Rate: 100 P: PA: 0 QRS: -85 QRSD: 159 T: 67 QT: 404 QTc: 521 Interpretive Statements ATRIAL SENSE- ELECTRONIC VENTRICULAR PACEMAKER UNDERLYING SINUS TACHYCARDIA BASELINE ARTIFACT- I, II, III, AVR, AVL, AVF, V1, V4-V6 NO FURTHER INTERPRETATION IS POSSIBLE BORDERLINE ECG Electronically Signed On 04-07-2021 6:41:17 GROUP SEGMENT CONSULTANT by Kenny Lomax D.O.
[2021-04-06] MEDS: NITROGLYCERIN SL 0.4 MG TABLET SUBLINGUAL (21:44)
[2021-04-06] MEDS: MORPHINE SULFATE (*CRX) 2 MG/ML INJ IV PUSH (21:45)
[2021-04-06] MEDS: ONDANSETRON INJ 4 MG/2 ML VIAL IV PUSH (21:48)
[2021-04-06 22:30] LABS: Basophils Percent Auto 0.5 % (0.0-1.0); Eosinophils Absolute Auto 0.27 K/mm3 (0.02-0.50); Eosinophils Percent Auto 1.4 % (1.0-6.0); Hematocrit 32.6 % (37.0-46.0); Hemoglobin 10.4 g/dL (12.4-15.3); Immature Granulocyte Absolute 0.14 K/mm3 (0.00-0.00); Immature Granulocyte Percent A 0.7 % (0.0-0.0); Lymphocytes Absolute Auto 0.79 K/mm3 (1.10-4.50); Mean Corpuscular HGB Conc 31.9 g/dL (32.0-36.0); Mean Corpuscular Hemoglobin 28.5 pg (27.0-31.0); Mean Corpuscular Volume 89.3 fL (78.0-102.0); Mean Platelet Volume 10.9 fl (8.7-11.0); Monocytes Absolute Auto 2.25 K/mm3 (0.10-0.90); Monocytes Percent Auto 11.4 % (2.0-11.0); Neutrophils Absolute Auto 16.2 K/mm3 (1.7-7.2); Platelet Count Result 298 K/mm3 (150-420); Red Blood Count 3.65 M/mm3 (4.70-6.10); Red Cell Distribution Width 15.1 % (11.6-14.4); White Blood Count 19.8 K/mm3 (4.8-10.8)
[2021-04-06 22:39] LABS: INR 1.2; Partial Thromboplastin Time 32.2 SEC (23.90-30.70); Prothrombin Time 12.6 Seconds (9.50-12.10)
[2021-04-06 22:44] LABS: D Dimer 0.84 mg/L (0.19-0.50)
[2021-04-06 22:45] LABS: Alanine Aminotransferase 18 U/L (16-63); Albumin Level 3.7 g/dL (3.4-5.0); Alkaline Phosphatase 98 U/L (46-116); Anion Gap 14 mmol/L (8-16); Aspartate Amino Transferase 12 U/L (15-37); Bilirubin,Total 0.5 mg/dL (0.00-1.00); Blood Urea Nitrogen 31 mg/dL (7-18); Calcium 9.4 mg/dL (8.5-10.1); Carbon Dioxide 25 mmol/L (21-32); Chloride 99 mmol/L (98-108); Estimated Glomerular Filt Rate 28; Glucose 228 mg/dL (70-99); NT Pro B Type Natriuretic Pept 9987 pg/mL (0-125); Osmolality Calculated 299 mOsm/kg (285-295); Potassium 4.7 mmol/L (3.5-5.1); Sodium 138 mmol/L (136-145); Total Protein 8.1 g/dL (6.4-8.2)
[2021-04-06 22:54] LABS: Troponin I 87.8 ng/L (0.00-60.4)
[2021-04-06 22:57] LABS: SARS-CoV-2 RNA PCR Negative (Negative)
--- NOTE | 2021-04-06 23:24 | ED.CHESTPAIN ---
HPI - Chest Pain General Chief Complaint: Chest Pain Stated Complaint: amb Time Seen by Provider: 04/06/21 21:32 Source: patient and EMS Mode of arrival: EMS Limitations: clinical condition History of Present Illness HPI narrative: 7-year-old man with a history of coronary artery disease status post 6 vessel CABG and coronary stents, peripheral artery disease, diabetes, and hypertension brought to the emergency department after having increasing chest pain since 4:00 a.m. this afternoon. He has been having chest pain that is sharp, in the center part of his chest, and associated with shortness of breath off and on for the last week. He states taking nitroglycerin improved his pain and is has taking approximately 10 today. He took 4 baby aspirin prior to arrival. MD complaint: chest pain Pertinent past history: coronary artery disease, prior [place] and CABG Onset (ago): week(s) (1) Timing of current episode: constant Prior episodes: Yes Onset: during rest Pain location: substernal Pain radiation: right arm, left arm, left shoulder and right shoulder Quality: sharp Relieving factors: nitroglycerin Exacerbating factors: nothing Associated symptoms: dyspnea and cough Treatment prior to arrival: aspirin and nitroglycerin Risk Factors Coronary artery disease risk factors: diabetes, smoking history, hyperlipidemia and hypertension Thoracic aortic dissection risk factors: acortic valve defect (bicuspid aortic valve) (Aortic valve repair) Related Data Home Medications Medication Instructions Recorded Confirmed insulin aspart U-100 [Novolog See Rx Instructions .ROUTE .COMPLEX 03/27/19 04/06/21 Flexpen U-100 Insulin] Adult Low Dose Aspirin 81 mg PO DAILY 08/05/20 04/06/21 Allergy (diphenhydramine) 25 mg PO Q8-10H PRN 08/05/20 04/06/21 Miralax 17 g PO PRN PRN 08/05/20 04/06/21 acetaminophen 650 mg PO Q8-10H PRN 08/05/20 04/06/21 cholecalciferol (vitamin D3) 1,000 unit PO DAILY 08/05/20 04/06/21 pantoprazole 40 mg PO BID 08/05/20 04/06/21 Prolia See Rx Instructions .ROUTE .COMPLEX 09/03/20 04/06/21 gabapentin 300 mg PO BID 09/03/20 04/06/21 magnesium oxide 400 mg PO DAILY 09/03/20 04/06/21 naphazoline-glycerin [Clear Eyes 1 drp EACH EYE PRN PRN 04/06/21 04/06/21 Redness Relief] Allergies Allergy/AdvReac Type Severity Reaction Status Date / Time amoxicillin [From Augmentin] Allergy Rash Verified 04/06/21 23:15 clavulanic acid Allergy Rash Verified 04/06/21 23:15 [From Augmentin] metformin Allergy Other Verified 04/06/21 23:15 Review of Systems Review of Systems: All systems reviewed & are unremarkable except as noted in HPI and below Constitutional: Constitutional: Denies chills, Denies fever(s) and Denies weakness Eyes: Eyes: Denies change in vision and Denies photophobia ENT: Denies nasal congestion and Denies sore throat Cardiovascular: Cardiovascular: Denies chest pain and Denies radiating jaw, neck or arm pain Respiratory: Respiratory: Reports cough, Reports dyspnea and Denies wheezing Gastrointestinal: Gastrointestinal: Denies abdominal pain, Denies diarrhea, Denies nausea and Denies vomiting Genitourinary: Genitourinary: Denies hematuria, Reports oliguria, Denies dysuria and Denies urinary frequency Musculoskeletal: Musculoskeletal: Denies back pain, Denies arthralgias and Denies joint swelling Integumentary/Breasts: Skin/Breast: Denies pruritus, Denies erythema and Denies rash Neurologic: Denies vertigo, Denies dizziness and Denies syncope Allergic/Immunologic: Allergic/Immunologic: Denies lip swelling and Denies throat swelling PMFSH Past Medical History Medical History Aortic valve disease CAD (coronary artery disease) Heart disease Hypertension Hypertension associated with diabetes IDDM (insulin dependent diabetes mellitus) Pacemaker PAD (peripheral artery disease) 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 [place]
[2021-04-06 23:36] LABS: Lactic Acid Reflex 2.8 mmol/L (0.4-2.0)
[2021-04-07] VITALS (19 sets, daily range): BP systolic 113–189; BP diastolic 61–102; PULSE 60–94; RESP 18–34; TEMP 36.6; O2SAT 88–100
[2021-04-07] MEDS: NITROGLYCERIN SL 0.4 MG TABLET SUBLINGUAL ×2 (00:16→00:26)
[2021-04-07] MEDS: NITROGLYCERIN/D5W 200 MCG/ML 50 MG/250 ML BTL IV CONT (00:52)
[2021-04-07] MEDS: FUROSEMIDE INJ 100 MG/10 ML VIAL 80 MG IV PUSH (00:57)
[2021-04-07] MEDS: PANTOPRAZOLE SODIUM IV 40 MG VIAL IV PUSH (01:15)
[2021-04-07] MEDS: ACETAMINOPHEN 500 MG TABLET 1000 MG PO (01:15)
[2021-04-07 01:26] LABS: Troponin I 630.7 ng/L (0.00-60.4)
[2021-04-07 01:49] LABS: Add Urine Microscopic? YES; Appearance Urine Clear (Clear); Bilirubin Urine Negative (Negative); Blood Urine Negative (Negative); Color Urine Yellow (Yellow); Glucose Urine UA Trace (Negative); Ketones Urine Trace (Negative); Leukocyte Esterase Ur Negative LEU/UL (Negative); Nitrate Urine Negative (Negative); Protein Urine 2+ (Negative); Specific Grav Ur >= 1.030 (1.010-1.020); Urobilinogen Urine 0.2 mg/dL (0.2-1.0); pH Urine 5.5 (5.0-8.0)
[2021-04-07 01:53] LABS: Amphetamine Screen Urine Negative (Negative); Barbiturate Screen Urine Negative (Negative); Benzodiazepines Screen Urine Negative (Negative); Cannabinoid Screen Urine Negative (Negative); Cocaine Screen Urine Negative (Negative); Methadone Screen Urine Negative (Negative); Opiate Screen Urine Positive (Negative); Phencyclidine Screen Urine Negative (Negative)
[2021-04-07 01:57] LABS: Amorphous Sediment Urine Moderate; Hyaline Casts Urine 15-19 /lpf
[2021-04-07 02:08] LABS: Reflex Lactic Acid Yes or No Add Lactic
[2021-04-07 02:49] LABS: Lactic Acid 1.3 mmol/L (0.4-2.0)
[2021-04-07] MEDS: hydrALAZINE HCL 25 MG TABLET PO (03:59)
[2021-04-07] MEDS: carvediloL 12.5 MG TABLET PO (04:03)
--- NOTE | 2021-04-07 04:35 | PC.NURSE ---
Call placed back to [facility] transfer line, update on pts. labs, increasing trop level, and status discussed malcolm Zayas. Will await call back from [facility] [facility] to see if bed available for transfer for pt. Pt doesn't want to go anywhere else as his cardiologists and specialists are all located at [facility].
[2021-04-07 04:40] LABS: Glucose Point of Care 287 mg/dl (65-105)
[2021-04-07 04:50] LABS: Basophils Absolute Auto 0.03 K/mm3 (0.00-0.10); Basophils Percent Auto 0.2 % (0.0-1.0); Hematocrit 30.9 % (37.0-46.0); Hemoglobin 9.8 g/dL (12.4-15.3); Immature Granulocyte Absolute 0.08 K/mm3 (0.00-0.00); Immature Granulocyte Percent A 0.6 % (0.0-0.0); Lymphocytes Absolute Auto 0.35 K/mm3 (1.10-4.50); Lymphocytes Percent Auto 2.6 % (18.0-42.0); Mean Corpuscular HGB Conc 31.7 g/dL (32.0-36.0); Mean Corpuscular Hemoglobin 27.8 pg (27.0-31.0); Mean Corpuscular Volume 87.5 fL (78.0-102.0); Mean Platelet Volume 10.9 fl (8.7-11.0); Monocytes Absolute Auto 1.56 K/mm3 (0.10-0.90); Monocytes Percent Auto 11.6 % (2.0-11.0); Neutrophils Absolute Auto 11.5 K/mm3 (1.7-7.2); Platelet Count Result 271 K/mm3 (150-420); Red Blood Count 3.53 M/mm3 (4.70-6.10); Red Cell Distribution Width 15.1 % (11.6-14.4); White Blood Count 13.5 K/mm3 (4.8-10.8)
[2021-04-07 04:53] LABS: Anion Gap 14 mmol/L (8-16); Blood Urea Nitrogen 35 mg/dL (7-18); Carbon Dioxide 24 mmol/L (21-32); Chloride 98 mmol/L (98-108); Estimated CRCL calculation 28 ml/min; Estimated Glomerular Filt Rate 28; Glucose 301 mg/dL (70-99); Osmolality Calculated 301 mOsm/kg (285-295); Potassium 5.2 mmol/L (3.5-5.1); Sodium 136 mmol/L (136-145)
--- NOTE | 2021-04-07 05:08 | PC.NURSE ---
[place] ICU Physician returned call for a report from [facility]. Awaiting a return call for placement.
[2021-04-07] MEDS: ONDANSETRON INJ 4 MG/2 ML VIAL IV PUSH (05:22)
[2021-04-07] MEDS: HEPARIN SODIUM 5,000 UNITS/ML VIAL 4000 UNITS IV PUSH (05:24)
[2021-04-07] MEDS: HEPARIN SOD/D5W 100 UNITS/ML 25,000 UNITS/250 ML BAG 10 UNITS IV CONT (05:29)
[2021-04-07] MEDS: IPRATROPIUM 0.5 MG/ALBUTEROL SULFATE 2.5 MG AMPUL.NEB 3 ML INHALATION (05:45)
[2021-04-07 05:58] LABS: NT Pro B Type Natriuretic Pept 14442 pg/mL (0-125)
[2021-04-07 06:14] LABS: INR 1.2; Partial Thromboplastin Time 34.7 SEC (23.90-30.70); Prothrombin Time 12.3 Seconds (9.50-12.10)
--- NOTE | 2021-04-07 06:36 | PC.NURSE ---
RN to RN report given to [facility]. Pt is being sent to [facility] ICU room 7.
== END 2021-04-07 07:35 | disposition short-term general hospital (02) ==
PROVIDERS: Emergency Provider Emergency Medicine
DX: I21.4 Non-ST elevation (NSTEMI) myocardial infarction (principal); Z20.822 Contact with and (suspected) exposure to COVID-19; E11.9 Type 2 diabetes mellitus without complications; I10 Essential (primary) hypertension; R06.02 Shortness of breath; Z79.899 Other long term (current) drug therapy
CPT/HCPCS: 36415; 71045; 80048; 80053; 80307; 81001; 82948; 83605; 83880; 84484; 85025; 85380; 85610; 85730; 87040; 93005; 94640; 96365; 96367; 96375; 99285; A9270; C9113; C9803; J0696; J1644; J1940; J2270; J2405; U0003; U0005

== ENCOUNTER 2021-06-10 12:23 | Emergency (ER) | payer MEDICARE, MEDICAID, SELFPAY ==
[2021-06-10] VITALS (9 sets, daily range): BP systolic 127–149; BP diastolic 48–72; PULSE 70–76; RESP 20; TEMP 36.3–36.7; O2SAT 94–98
--- NOTE | ~2021-06-10 | CT_ITS ---
EXAMINATION: CT diagnostic chest wo con DATE: 06/10/2021 13:10 INDICATION: chest pain, sob TECHNIQUE: Computed tomography (CT) of the chest was performed without intravenous contrast. Addition al 3D reconstructions utilizing coronal maximum intensity projection (MIP) were performed. Automated exposure control and iterative reconstruction technique were employed. The dose-length product was 45 2.88 mGy-cm. COMPARISON: Chest CT dated 07/16/2020 FINDINGS: Small bilateral posterior layering bilateral pleural effusions. Dependent predominant groundglass opa cities in both lungs. Linear band of discoid atelectasis/scarring in the right middle lobe. Cardiomeg kaykay. Atherosclerotic coronary artery calcifications unchanged prior median sternotomy and coronary ar matias bypass grafting. There is also coronary artery stenting including along a bypass graft extending from the aorta to the circumflex coronary artery. Aortic valve repair. Three lead pacemaker seen wit h lead tips at the right atrial appendage, apex of the right ventricle and in a coronary vein along t he lateral wall of the left ventricle likely having traversed the coronary sinus. No pericardial effu ludivina. Likely left atrial appendage occlusion device. Multiple prominent still normal-sized mediastina l lymph nodes which are likely reactive. Atherosclerotic calcifications along the normal caliber thor acic aorta and extending to the great vessels arising from the arch. Postoperative changes at the bas e of the neck. Visualized upper abdomen is unremarkable. There are bridging osteophytes at multiple l evels in the spine, consistent with diffuse idiopathic skeletal hyperostosis (DISH). IMPRESSION: 1. Dependent predominant groundglass opacities in both lungs with differential including mild pulmona ry edema, atelectasis, less likely pneumonia or some combination thereof. 2. Small bilateral pleural effusions. 3. Cardiomegaly with postoperative changes detailed above. Reviewed, dictated and finalized at location A. IMPRESSION: 1. Dependent predominant groundglass opacities in both lungs with differential including mild pulmonary edema, atelectasis, less likely pneumonia or some comb ination thereof. 2. Small bilateral pleural effusions. 3. Cardiomegaly with postoperative changes detailed above.
--- NOTE | 2021-06-10 12:32 | ECG_ITS ---
Measurements Intervals [place] Rate: 75 P: 56 NV: 234 QRS: -72 QRSD: 157 T: 56 QT: 482 QTc: 539 Interpretive Statements NORMAL SINUS RHYTHM ELECTRONIC VENTRICULAR PACEMAKER COMPARED TO ECG 04/06/2021 21:37:08 NO SIGNIFICANT CHANGES Electronically Signed On 06-10-2021 18:44:16 CDT by Carlyn Hernadez M.D.
[2021-06-10 13:03] LABS: Basophils Absolute Auto 0.08 K/mm3 (0.00-0.10); Basophils Percent Auto 0.9 % (0.0-1.0); Eosinophils Absolute Auto 0.97 K/mm3 (0.02-0.50); Eosinophils Percent Auto 10.8 % (1.0-6.0); Hematocrit 27.4 % (37.0-46.0); Hemoglobin 8.2 g/dL (12.4-15.3); Immature Granulocyte Absolute 0.03 K/mm3 (0.00-0.00); Immature Granulocyte Percent A 0.3 % (0.0-0.0); Lymphocytes Absolute Auto 0.28 K/mm3 (1.10-4.50); Lymphocytes Percent Auto 3.1 % (18.0-42.0); Mean Corpuscular HGB Conc 29.9 g/dL (32.0-36.0); Mean Corpuscular Hemoglobin 25.2 pg (27.0-31.0); Mean Corpuscular Volume 84.3 fL (78.0-102.0); Mean Platelet Volume 9.8 fl (8.7-11.0); Monocytes Absolute Auto 0.79 K/mm3 (0.10-0.90); Monocytes Percent Auto 8.8 % (2.0-11.0); Neutrophils Absolute Auto 6.8 K/mm3 (1.7-7.2); Neutrophils Percent Auto 76.1 % (50.0-70.0); Platelet Count Result 569 K/mm3 (150-420); Red Blood Count 3.25 M/mm3 (4.70-6.10); Red Cell Distribution Width 19.5 % (11.6-14.4)
[2021-06-10 13:08] LABS: Base Excess ABG 5.9 mmol/L (0-2); HCO3 ABG 29.5 mmol/L (23-29); Oxygen Content ABG 8.7 %vol (16.0-22.0); Oxygen Saturation ABG 80.3 % (95-97); Oxyhemoglobin 79.4 % (94-100); PCO2 ABG 38.3 mmHg (35-45); PO2 ABG 44.4 mmHg (75-85); Total Hemoglobin 7.8 g/dL (12.0-18.0)
[2021-06-10 13:09] LABS: Modified Allen's Test Pass; Site Drawn RIGHT RADIAL
[2021-06-10 13:10] LABS: Device NASAL CANNULA
[2021-06-10 13:31] LABS: Alanine Aminotransferase 98 U/L (16-63); Albumin Level 2.8 g/dL (3.4-5.0); Alkaline Phosphatase 139 U/L (46-116); Anion Gap 10 mmol/L (8-16); Aspartate Amino Transferase 44 U/L (15-37); Bilirubin,Total 0.7 mg/dL (0.00-1.00); Blood Urea Nitrogen 46 mg/dL (7-18); Calcium 9.9 mg/dL (8.5-10.1); Carbon Dioxide 30 mmol/L (21-32); Chloride 99 mmol/L (98-108); Estimated CRCL calculation 26 ml/min; Estimated Glomerular Filt Rate 26; Glucose 277 mg/dL (70-99); NT Pro B Type Natriuretic Pept 15162 pg/mL (0-125); Osmolality Calculated 309 mOsm/kg (285-295); Potassium 4.1 mmol/L (3.5-5.1); Sodium 139 mmol/L (136-145); Total Protein 7.5 g/dL (6.4-8.2); Troponin I 32.2 ng/L (0.00-60.4)
[2021-06-10 13:35] LABS: Lactic Acid Reflex 1.3 mmol/L (0.4-2.0)
--- NOTE | 2021-06-10 13:48 | PC.NURSE ---
1340 chest tightness 1/10 morphine and zofran on hold
[2021-06-10 15:06] LABS: SARS-CoV-2 Ag Negative (Negative)
[2021-06-10] MEDS: FUROSEMIDE INJ 100 MG/10 ML VIAL 80 MG IV PUSH (17:29)
[2021-06-10] MEDS: INSULIN HUMAN REGULAR (*BKC) 100 UNITS/ML IV PUSH (17:30)
--- NOTE | 2021-06-10 17:59 | ED.CHESTPAIN ---
HPI - Chest Pain General Chief Complaint: Chest Pain Stated Complaint: AMBULANCE Time Seen by Provider: 06/10/21 12:25 Source: patient, EMS and RN notes reviewed Mode of arrival: EMS Limitations: no limitations History of Present Illness MD complaint: chest pain Pertinent past history: coronary artery disease, prior [place] and asthma Onset (ago): hour(s) (6) Timing of current episode: daily (2) Prior episodes: Yes Onset: during exertion Pain location: substernal Pain radiation: none Pain scale (0-10): 1 Quality: aching and dull Relieving factors: nitroglycerin Context: recent immobilization Treatment prior to arrival: aspirin and nitroglycerin Risk Factors Coronary artery disease risk factors: diabetes, hyperlipidemia and hypertension Related Data Home Medications Medication Instructions Recorded Confirmed insulin aspart U-100 [Novolog See Rx Instructions .ROUTE .COMPLEX 03/27/19 06/10/21 Flexpen U-100 Insulin] Adult Low Dose Aspirin 81 mg PO DAILY 08/05/20 06/10/21 Allergy (diphenhydramine) 25 mg PO Q8-10H PRN 08/05/20 06/10/21 Miralax 17 g PO PRN PRN 08/05/20 06/10/21 acetaminophen 650 mg PO Q8-10H PRN 08/05/20 06/10/21 cholecalciferol (vitamin D3) 1,000 unit PO DAILY 08/05/20 06/10/21 pantoprazole 40 mg PO BID 08/05/20 06/10/21 Prolia See Rx Instructions .ROUTE .COMPLEX 09/03/20 06/10/21 gabapentin 300 mg PO BID 09/03/20 06/10/21 magnesium oxide 400 mg PO DAILY 09/03/20 06/10/21 naphazoline-glycerin [Clear Eyes 1 drp EACH EYE PRN PRN 04/06/21 06/10/21 Redness Relief] atorvastatin 40 mg PO HS 06/10/21 06/10/21 bumetanide 1 mg PO BID 06/10/21 06/10/21 carvedilol 25 mg PO BID 06/10/21 06/10/21 dulaglutide [Trulicity] See Rx Instructions .ROUTE .COMPLEX 06/10/21 06/10/21 ferrous sulfate [Iron (ferrous 325 mg PO DAILY 06/10/21 06/10/21 sulfate)] Allergies Allergy/AdvReac Type Severity Reaction Status Date / Time amoxicillin [From Augmentin] Allergy Rash Verified 06/10/21 12:54 clavulanic acid Allergy Rash Verified 06/10/21 12:54 [From Augmentin] metformin Allergy Other Verified 06/10/21 12:54 Review of Systems Review of Systems: All systems reviewed & are unremarkable except as noted in HPI and below Cardiovascular: Cardiovascular: Reports chest pain PMFSH Past Medical History Medical History Aortic valve disease CAD (coronary artery disease) Heart disease Hypertension Hypertension associated with diabetes IDDM (insulin dependent diabetes mellitus) Pacemaker PAD (peripheral artery disease) 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 Surgical History Surgical History H/O left inguinal hernia repair H/O parathyroidectomy History of aortic valve repair History of coronary artery stent placement S/P CABG x 6 Family History Family History Mother Hypertension Father Heart disease Mitral valve replaced Sibling Heart disease Sibling Heart disease Sibling Heart disease Sibling Heart disease Social History Social History Smoking packs per day: 2 Smoking cigarettes per day: 40.0 Smoking status: Former smoker Tobacco type: cigarettes Second hand tobacco smoke exposure: No Smoking end date: 03/29/75 Additional smoking assessment comments: STOPPED SMOKING 1975 Alcohol intake: former Drinks per week: 30 Alcohol use details: rarely drinks alcohol Substance use: never Substance use type: marijuana Last use: 1959 Gender identity (if verbalized by the patient): Male Spiritual care concerns: No Exam Const: General: no acute distress and alert Nutritional Appearance: well nourished Orientation/consciousness: patient oriented x3 Limitations: no limitations HENMT: Head: normal to inspection Ea
== END 2021-06-10 18:40 | disposition short-term general hospital (02) ==
PROVIDERS: Emergency Provider Emergency Medicine
DX: I25.10 Atherosclerotic heart disease of native coronary artery without angina pectoris (principal); I50.9 Heart failure, unspecified; I10 Essential (primary) hypertension; E11.9 Type 2 diabetes mellitus without complications; Z79.4 Long term (current) use of insulin; Z87.891 Personal history of nicotine dependence; Z20.822 Contact with and (suspected) exposure to COVID-19
CPT/HCPCS: 36415; 36600; 71250; 80053; 82805; 83605; 83880; 84484; 85025; 87426; 93005; 96374; 96375; 99285; C9803; J1815; J1940

== ENCOUNTER 2021-07-22 11:18 | Outpatient (NON) | payer MEDICARE, SELFPAY ==
[2021-07-22 11:50] LABS: Basophils Absolute Auto 0.05 K/mm3 (0.00-0.10); Basophils Percent Auto 0.9 % (0.0-1.0); Eosinophils Absolute Auto 0.36 K/mm3 (0.02-0.50); Eosinophils Percent Auto 6.3 % (1.0-6.0); Hematocrit 30.6 % (37.0-46.0); Hemoglobin 9.2 g/dL (12.4-15.3); Immature Granulocyte Absolute 0.02 K/mm3 (0.00-0.00); Immature Granulocyte Percent A 0.4 % (0.0-0.0); Lymphocytes Absolute Auto 0.65 K/mm3 (1.10-4.50); Lymphocytes Percent Auto 11.4 % (18.0-42.0); Mean Corpuscular HGB Conc 30.1 g/dL (32.0-36.0); Mean Corpuscular Hemoglobin 25.4 pg (27.0-31.0); Mean Corpuscular Volume 84.5 fL (78.0-102.0); Mean Platelet Volume 10.6 fl (8.7-11.0); Monocytes Absolute Auto 0.63 K/mm3 (0.10-0.90); Platelet Count Result 278 K/mm3 (150-420); Red Blood Count 3.62 M/mm3 (4.70-6.10); White Blood Count 5.7 K/mm3 (4.8-10.8)
[2021-07-22 12:05] LABS: Alanine Aminotransferase 7 U/L (16-63); Albumin Level 2.4 g/dL (3.4-5.0); Alkaline Phosphatase 112 U/L (46-116); Anion Gap 8 mmol/L (8-16); Aspartate Amino Transferase 10 U/L (15-37); Bilirubin,Total 0.2 mg/dL (0.00-1.00); Blood Urea Nitrogen 27 mg/dL (7-18); Calcium 9.6 mg/dL (8.5-10.1); Carbon Dioxide 32 mmol/L (21-32); Chloride 97 mmol/L (98-108); Estimated Glomerular Filt Rate 44; Glucose 290 mg/dL (70-99); Osmolality Calculated 300 mOsm/kg (285-295); Potassium 4.1 mmol/L (3.5-5.1); Sodium 137 mmol/L (136-145); Total Protein 6.3 g/dL (6.4-8.2); Vancomycin Trough 12.2 ug/mL (10.0-15.0)
== END 2021-07-22 11:19 | disposition home or self-care (01) ==
LOC: CHSLAB 11:25
DX: M86.9 Osteomyelitis, unspecified (principal)
CPT/HCPCS: 36415; 80053; 80202; 85025

== ENCOUNTER 2021-11-16 04:20 | Inpatient (IN) | payer MEDICARE, MEDICAID, SELFPAY ==
[2021-11-16] VITALS (19 sets, daily range): BP systolic 136–161; BP diastolic 54–86; PULSE 60–73; RESP 12–20; TEMP 36.2–36.8; O2SAT 94–100; BMI 27.6
--- NOTE | ~2021-11-16 | XR_ITS ---
EXAMINATION: XR chest 1V portable DATE: 11/16/2021 05:44 INDICATION: Mid chest pain. TECHNIQUE: A single frontal view of the chest was obtained. COMPARISON: Chest single view 04/06/2021, chest CT 06/10/2021 FINDINGS: There is a diffuse interstitial pattern in the lungs, consistent mild pulmonary edema. Ther e are small pleural effusions. No pneumothorax. Cardiomegaly is noted. Median sternotomy wires and me diastinal surgical clips are seen, likely from prior coronary artery bypass grafting. There is a left chest pacer with leads in right atrium, right ventricle, and coronary sinus. IMPRESSION: 1. Mild pulmonary edema. 2. Small pleural effusions. 3. Cardiomegaly. Reviewed, dictated and finalized at location A.
--- NOTE | ~2021-11-16 | NM_ITS ---
EXAMINATION: NM pulmonary perfusion DATE: 11/17/2021 12:15 INDICATION: Mid chest pain. TECHNIQUE: 4.94 mCi Tc-99m MAA was administered intravenously for perfusion images. Scintigraphic im ages of the chest were obtained. COMPARISON: Chest single view 11/16/2021, chest CT 06/10/2021 FINDINGS: Perfusion images show matched moderate sized and large defects in the lower lobes. IMPRESSION: 1. Nondiagnostic (intermediate probability for pulmonary embolism). Reviewed, dictated and finalized at location A.
--- NOTE | 2021-11-16 04:42 | ECG_ITS ---
Measurements Intervals [place] Rate: 61 P: 85 [place]: 246 QRS: -82 QRSD: 166 T: 65 QT: 548 QTc: 554 Interpretive Statements ELECTRONIC ATRIAL PACEMAKER ELECTRONIC VENTRICULAR PACEMAKER COMPARED TO ECG 06/10/2021 11:47:24 NO SIGNIFICANT CHANGE Electronically Signed On 11-16-2021 15:18:39 CDT by Carlyn Hernadez M.D.
[2021-11-16 05:19] LABS: Hematocrit 29.5 % (37.0-46.0); Hemoglobin 9.1 g/dL (12.4-15.3); Mean Corpuscular HGB Conc 30.8 g/dL (32.0-36.0); Mean Corpuscular Hemoglobin 26.1 pg (27.0-31.0); Mean Corpuscular Volume 84.5 fL (78.0-102.0); Mean Platelet Volume 9.4 fl (8.7-11.0); Platelet Count Result 283 K/mm3 (150-420); Red Blood Count 3.49 M/mm3 (4.70-6.10); White Blood Count 5.3 K/mm3 (4.8-10.8)
[2021-11-16 05:32] LABS: INR 1.1; Partial Thromboplastin Time 26.5 SEC (23.90-30.70); Prothrombin Time 11.9 Seconds (9.50-12.10)
[2021-11-16 05:40] LABS: Alanine Aminotransferase 13 U/L (16-63); Albumin Level 3.2 g/dL (3.4-5.0); Alkaline Phosphatase 154 U/L (46-116); Anion Gap 7 mmol/L (8-16); Aspartate Amino Transferase 10 U/L (15-37); Bilirubin,Total 0.5 mg/dL (0.00-1.00); Blood Urea Nitrogen 43 mg/dL (7-18); Calcium 8.8 mg/dL (8.5-10.1); Carbon Dioxide 30 mmol/L (21-32); Chloride 96 mmol/L (98-108); Estimated CRCL calculation 30 ml/min; Estimated Glomerular Filt Rate 31; Glucose 221 mg/dL (70-99); Lipase 32 U/L (73-393); NT Pro B Type Natriuretic Pept 13387 pg/mL (0-125); Osmolality Calculated 293 mOsm/kg (285-295); Potassium 4.3 mmol/L (3.5-5.1); Sodium 133 mmol/L (136-145); Total Protein 7.2 g/dL (6.4-8.2); Troponin I 46.4 ng/L (0.00-60.4)
[2021-11-16 05:43] LABS: Band Neutrophils Percent 0 % (0-6); D Dimer 1.56 mg/L (0.19-0.50); Eosinophils Absolute Manual 0.79 K/mm3 (0.02-0.5); Eosinophils Percent Manual 15 % (1-6); Lymphocytes Absolute Manual 0.58 K/mm3 (1.1-4.5); Lymphocytes Percent Manual 11 % (18-44); Monocytes Absolute Manual 0.21 K/mm3 (0.1-0.90); Monocytes Percent Manual 4 % (3-9); Neutrophils Absolute Manual 3.71 K/mm3 (1.3-6.7); Neutrophils Percent Manual 70 % (46-73); Total Cells Counted 100
[2021-11-16 05:44] LABS: Anisocytosis 3+ (NORMAL); Platelet Estimate Adequate (Adequate)
[2021-11-16 06:01] LABS: SARS-CoV-2 RNA PCR Negative (Negative)
--- NOTE | 2021-11-16 06:14 | ED.CHESTPAIN ---
HPI - Chest Pain General Chief Complaint: Chest Pain Stated Complaint: chest pain Source: patient and EMS Mode of arrival: ambulatory Limitations: no limitations History of Present Illness HPI narrative: this is a 71-year-old gentleman with a significant cardiac history has had cardiac bypass history of CT presents to the emergency department via EMS after he was awoken at 3 in the morning with chest pressure patient took 2 nitroglycerin and his chest pain had subsequently resolved. Patient has been chest pain-free since arrival to the emergency department with no shortness of breath no nausea vomiting no radiation of his pain. There is no fever chills no abdominal pain no diarrhea constipation. Patient is nonsmoker. MD complaint: chest pain Pertinent past history: coronary artery disease, prior CT and CABG Onset (ago): hour(s) Timing of current episode: now resolved Prior episodes: Yes Onset: during rest Pain location: substernal Pain radiation: none Severity: mild Related Data Home Medications Medication Instructions Recorded Confirmed insulin aspart U-100 100 unit/mL See Rx Instructions .Route .COMPLEX 03/27/19 11/16/21 (3 mL) subcutaneous pen (Novolog Flexpen U-100 Insulin aspart) Adult Low Dose Aspirin 81 mg PO DAILY 08/05/20 11/16/21 cholecalciferol (vitamin D3) 1,000 unit PO DAILY 08/05/20 11/16/21 pantoprazole 40 mg tablet,delayed 40 mg PO BID 08/05/20 11/16/21 release gabapentin 300 mg capsule 300 mg PO BID 09/03/20 11/16/21 atorvastatin 40 mg tablet 40 mg PO HS 06/10/21 11/16/21 bumetanide 1 mg tablet 1 mg PO BID 06/10/21 11/16/21 carvedilol 25 mg PO BID 06/10/21 11/16/21 dulaglutide 4.5 mg/0.5 mL 4.5 mg subcut WEEKLY 11/16/21 11/16/21 subcutaneous pen injector ([facility]) metolazone 2.5 mg tablet 2.5 mg PO WEEKLY 11/16/21 11/16/21 Allergies Allergy/AdvReac Type Severity Reaction Status Date / Time amoxicillin [From Augmentin] Allergy Rash Verified 11/16/21 04:34 clavulanic acid Allergy Rash Verified 11/16/21 04:34 [From Augmentin] metformin Allergy Other Verified 11/16/21 04:34 Review of Systems Review of Systems: All systems reviewed & are unremarkable except as noted in HPI and below PMFSH Past Medical History Medical History Aortic valve disease CAD (coronary artery disease) Heart disease Hypertension Hypertension associated with diabetes IDDM (insulin dependent diabetes mellitus) Pacemaker PAD (peripheral artery disease) 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 Surgical History Surgical History H/O left inguinal hernia repair H/O parathyroidectomy History of aortic valve repair History of coronary artery stent placement S/P CABG x 6 Family History Family History Mother Hypertension Father Heart disease Mitral valve replaced Sibling Heart disease Sibling Heart disease Sibling Heart disease Sibling Heart disease Social History Social History Smoking packs per day: 2 Smoking cigarettes per day: 40.0 Smoking status: Former smoker Tobacco type: cigarettes Second hand tobacco smoke exposure: No Smoking end date: 03/29/75 Additional smoking assessment comments: STOPPED SMOKING 1975 Alcohol intake: former Drinks per week: 30 Alcohol use details: rarely drinks alcohol Substance use: never Substance use type: marijuana Last use: 1959 Gender identity (if verbalized by the patient): Male Spiritual care concerns: No Exam Const: General: cooperative, healthy appearing, comfortable, no acute distress, well developed and alert HENMT: Head: normal to inspection Ears: hearing grossly normal bilaterally Face and sinus: normal facial exam Eyes: General: appearance
[2021-11-16] MEDS: FUROSEMIDE INJ 40 MG/4 ML VIAL IV PUSH ×2 (06:27→16:15)
--- NOTE | 2021-11-16 06:31 | PC.NURSE ---
pt to be admitted as an inpatient into room 208
--- NOTE | 2021-11-16 07:20 | ADMGEN ---
This patient, Justin Peguero, was admitted to 2nd Floor Room 208-1. Patient oriented to hospital policies and general routines including ID bracelet, bed and alarms, visiting hours, pain management, procedures, bathroom and other care routines, personal items, smoking policy, room service/diet, and visiting hours. Information on how to activate the Rapid Response Team has been discussed. Patient are encouraged to report perceived risks to care and to ask questions if they do not understand what they are told or what they should do. Patient states he has a pediatric dermatologist, Dr. Landa, in [place], last seen in August or September. Also states he is scheduled to have surgery to replace vein in right leg with vascular doctor, Dr. Lanza on 11/18/21 at 7am.
[2021-11-16 07:25] LABS: Glucose Point of Care 213 mg/dl (65-105)
[2021-11-16] MEDS: carvediloL 12.5 MG TABLET 25 MG PO ×2 (08:25→20:07)
[2021-11-16] MEDS: ASPIRIN 81 MG CHEWABLE TABLET PO (08:25)
[2021-11-16] MEDS: CHOLECALCIFEROL 1,000 UNITS TABLET 1000 UNITS PO (08:26)
[2021-11-16] MEDS: FAMOTIDINE 20 MG TABLET PO (08:26)
[2021-11-16] MEDS: cloNIDine HCL 0.1 MG TABLET 0.3 MG PO ×2 (08:26→20:07)
[2021-11-16] MEDS: GABAPENTIN 300 MG CAPSULE PO ×2 (08:27→16:15)
[2021-11-16] MEDS: PANTOPRAZOLE 40 MG TABLET PO ×2 (08:27→16:15)
[2021-11-16] MEDS: ISOSORBIDE MONONITRATE 60 MG TAB.ER.24H PO (08:27)
[2021-11-16] MEDS: RANOLAZINE 500 MG TAB.ER.12H PO ×2 (08:28→20:08)
[2021-11-16 09:24] LABS: Troponin I 45.1 ng/L (0.00-60.4)
--- NOTE | 2021-11-16 09:30 | PC.NURSE ---
signed consent faxed to [facility] for the most recent ECHO.
[2021-11-16 11:40] LABS: Glucose Point of Care 180 mg/dl (65-105)
[2021-11-16 12:02] LABS: Troponin I 40.2 ng/L (0.00-60.4)
[2021-11-16 16:19] LABS: Glucose Point of Care 300 mg/dl (65-105)
[2021-11-16] MEDS: traZODone HCL 50 MG TABLET PO (20:07)
[2021-11-16 20:17] LABS: Glucose Point of Care 292 mg/dl (65-105)
[2021-11-17] VITALS (7 sets, daily range): BP systolic 130–146; BP diastolic 67–89; PULSE 59–62; RESP 16–18; TEMP 36.3–36.6; O2SAT 100
[2021-11-17 07:31] LABS: Glucose Point of Care 179 mg/dl (65-105)
[2021-11-17] MEDS: cloNIDine HCL 0.1 MG TABLET 0.3 MG PO (08:45)
[2021-11-17] MEDS: CHOLECALCIFEROL 1,000 UNITS TABLET 1000 UNITS PO (08:46)
[2021-11-17] MEDS: RANOLAZINE 500 MG TAB.ER.12H PO (08:46)
[2021-11-17] MEDS: ASPIRIN 81 MG CHEWABLE TABLET PO (08:46)
[2021-11-17] MEDS: PANTOPRAZOLE 40 MG TABLET PO (08:47)
[2021-11-17] MEDS: FAMOTIDINE 20 MG TABLET PO (08:47)
[2021-11-17] MEDS: carvediloL 12.5 MG TABLET 25 MG PO (08:47)
[2021-11-17] MEDS: ISOSORBIDE MONONITRATE 60 MG TAB.ER.24H PO (08:48)
[2021-11-17] MEDS: GABAPENTIN 300 MG CAPSULE PO (08:48)
[2021-11-17] MEDS: metOLazone 2.5 MG TABLET PO (08:56)
[2021-11-17] MEDS: FUROSEMIDE INJ 40 MG/4 ML VIAL IV PUSH (08:56)
[2021-11-17 10:49] LABS: Mean Corpuscular Hemoglobin 26.1 pg (27.0-31.0); Mean Corpuscular Volume 84.1 fL (78.0-102.0); Mean Platelet Volume 9.5 fl (8.7-11.0); Platelet Count Result 303 K/mm3 (150-420); Red Blood Count 3.45 M/mm3 (4.70-6.10); Red Cell Distribution Width 23.1 % (11.6-14.4); White Blood Count 6.2 K/mm3 (4.8-10.8)
[2021-11-17 11:03] LABS: Anion Gap 3 mmol/L (8-16); Blood Urea Nitrogen 39 mg/dL (7-18); Calcium 9.2 mg/dL (8.5-10.1); Carbon Dioxide 34 mmol/L (21-32); Chloride 97 mmol/L (98-108); Estimated CRCL calculation 33 ml/min; Estimated Glomerular Filt Rate 34; Glucose 293 mg/dL (70-99); Osmolality Calculated 298 mOsm/kg (285-295); Potassium 4.3 mmol/L (3.5-5.1); Sodium 134 mmol/L (136-145)
[2021-11-17 11:59] LABS: Glucose Point of Care 280 mg/dl (65-105)
--- NOTE | 2021-11-17 13:54 | PM.DS ---
DS: Admitting Diagnosis Discharge Date 11/17/2021 Admitting Diagnosis Chest pain, Congestive heart failure DS: Summary Time Spent with Patient Time attestation: Total time spent providing and/or coordinating discharge services: Exam Const: General: comfortable and no acute distress Eyes: General: appearance normal, both eyes and all related structures Resp: Auscultation: diminished lung sounds Cardio: Rate: regular rate and bradycardic GI: GI Palp: Yes Soft to palpation Auscultation: normal bowel sounds Skin: General skin exam: normal color and no rashes or lesions noted Wounds: no wounds Neuro: General: gait normal Extrem: General: normal to inspection and edema bilateral (trace ) Psych: Mental Status: mental status grossly normal DS: Data Data Completed and Pending Labs on day of discharge: Labs from last 24 hours 11/17/21 11/17/21 11/17/21 11:53 10:42 10:42 WBC 6.2 RBC 3.45 L Hgb 9.0 L Hct 29.0 L MCV 84.1 MCH 26.1 L MCHC 31.0 L RDW 23.1 H Plt Count 303 MPV 9.5 Sodium 134 L Potassium 4.3 Chloride 97 L Carbon Dioxide 34 H Anion Gap 3 L BUN 39 H Creatinine 1.95 H Estim Creat Clear Calc 33 Estimated GFR 34 L Glucose 293 H POC Capillary Glucose 280 H Calculated Osmolality 298 H Calcium 9.2 11/17/21 11/16/21 11/16/21 07:25 20:14 16:13 WBC RBC Hgb Hct MCV MCH MCHC RDW Plt Count MPV Sodium Potassium Chloride Carbon Dioxide Anion Gap BUN Creatinine Estim Creat Clear Calc Estimated GFR Glucose POC Capillary Glucose 179 H 292 H 300 H Calculated Osmolality Calcium Discharge Plan Discharge Attending physician on discharge: Sky Childers Discharging Clinician: Katia Briceño Anticipated Discharge Date/Time: 11/17/21 13:54 Patient Disposition: Home, Self-Care Activity: may shower and as tolerated Diet: heart healthy Wound Care Instructions: follow printed instructions Discharge Instructions: You have surgery in the morning with Dr. Gama Underwood for a Redo of Femoral popliteal Make sure you are NPO after midnight Make sure you complete your surgery special wash tonight and in the morning. You should be in [place] @0700 I have called and faxed your information to Dr. Underwood office Patient Instructions: Antibiotic Form, Bumetanide (By mouth), Heart Failure (DC), Chest Pain (DC), Fall Prevention for Older Adults (DC), Chronic Lung Disease and Infection Prevention (DC), Dyspnea Scale and Exercise (DC) Stand Alone Forms: General Discharge Information Follow-up/Referrals: UNKNOWN,DOCTOR [Primary Care Provider] - Keep Reg. Scheduled Appt. (Keep appointment as scheduled in November) Discharge Medications: Continued gabapentin 300 mg capsule 300 mg PO BID ranolazine 500 mg tablet extended release 12 hr 500 mg PO Q12H Qty: 30 0RF famotidine 20 mg tablet 20 mg PO DAILY Qty: 30 0RF isosorbide mononitrate 30 mg tablet extended release 24 hr 60 mg PO DAILY Qty: 0 0RF clonidine HCl 0.2 mg tablet 0.3 mg PO BID Qty: 0 0RF atorvastatin 40 mg tablet 40 mg PO HS bumetanide 1 mg tablet 1 mg PO BID carvedilol 25 mg 25 mg PO BID metolazone 2.5 mg tablet 2.5 mg PO WEEKLY Trulicity 4.5 mg/0.5 mL pen injector 4.5 mg SUBCUT WEEKLY insulin aspart U-100 [Novolog Flexpen U-100 Insulin] 100 unit/mL (3 mL) insulin pen See Rx Instructions .ROUTE .COMPLEX Rx Instructions: Sliding scale nitroglycerin 0.4 mg tablet, sublingual 0.4 mg sublingual DIRECTED Qty: 30 0RF pantoprazole 40 mg tablet,delayed release (DR/EC) 40 mg PO BID Adult Low Dose Aspirin 81 mg 81 mg PO DAILY cholecalciferol (vitamin D3) 1,000 unit 1,000 unit PO DAILY Date of admission: 11/16/21 06:22 Primary Care Provider: UNKNOWN,
--- NOTE | 2021-11-17 14:06 | PC.NURSE ---
Reviewed discharge instructions with patient
--- NOTE | 2021-11-17 14:13 | PM.SD2 ---
Same Day Admit/Disch: HPI History of Present Illness Chief complaint: CHEST PAIN CHF ELEVATED DDIMER Narrative: Justin Peguero is a 71 year old male who11 has a significant cardiac history with cardiac bypass history of MIs and has had several strokes. Patient D-dimer was elevated VQ scan showed intermediate possibility for PE. Patient denies any chest pain and/or shortness of breath anymore than normal as he is on 6 L of oxygen at home. Patient refused to be put on any anticoagulation as he is informed me that he supposed to have a redo femoral popliteal at [facility] in the morning. I discussed in great detail the risk of not being on anticoagulation patient is adamant that he return home as he needs to go to [place] in the morning. I did call [facility] and spoke with the nurse at patient's lan engineer office and I faxed lab results as well as the VQ scan regarding the patient's condition and informed them that patient is going to leave as he is planning on having the surgery in the morning. Patient also had an echocardiogram completed we will fax the results to patient's lan engineer discussed with Dr. Gama Lanza office. Patient's labs are sodium is 134, BUN is 39, creatinine is 1.95 WBC 6.2, hemoglobin is 9, [place] is 29.0 and platelets of 303. I informed patient of my concerns and the risk that he is placing himself at as having another stroke patient states he is aware he is called a ride. 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 Surgical History Surgical History H/O left inguinal hernia repair H/O parathyroidectomy History of aortic valve repair History of coronary artery stent placement S/P CABG x 6 Family History Family History Mother Hypertension Father Heart disease Mitral valve replaced Sibling Heart disease Sibling Heart disease Sibling Heart disease Sibling Heart disease Social History Social History Smoking packs per day: 0.25 Smoking cigarettes per day: 5.0 Smoking status: Former smoker Tobacco type: cigarettes Second hand tobacco smoke exposure: Yes Smoking end date: 03/29/75 Additional smoking assessment comments: STOPPED SMOKING 1975 Alcohol intake: never Drinks per week: 30 Alcohol use details: rarely drinks alcohol Substance use: never Substance use type: marijuana Last use: 1960 Gender identity (if verbalized by the patient): Male Spiritual care concerns: No Same Day Admit/Disch: Med Pre-admit Medications Home Medications Medication Instructions Recorded Confirmed Type insulin aspart U-100 100 unit/mL See Rx Instructions .Route .COMPLEX 03/27/19 11/16/21 History (3 mL) subcutaneous pen (Novolog Flexpen U-100 Insulin aspart) Adult Low Dose Aspirin 81 mg PO DAILY 08/05/20 11/16/21 History cholecalciferol (vitamin D3) 1,000 unit PO DAILY 08/05/20 11/16/21 History pantoprazole 40 mg tablet,delayed 40 mg PO BID 08/05/20 11/16/21 History release nitroglycerin 0.4 mg sublingual 0.4 mg sublingual DIRECTED #30 08/17/20 11/16/21 Rx tablet tabs gabapentin 300 mg capsule 300 mg PO BID 09/03/20 11/16/21 History clonidine HCl 0.2 mg tablet 0.3 mg PO BID #0 tabs 01/20/21 11/16/21 Rx famotidine 20 mg tablet 20 mg PO DAILY #30 tabs 01/20/21 11/16/21 Rx isosorbide mononitrate 30 mg 60 mg PO DAILY #0 tabs 01/20/21 11/16/21 Rx tablet,extended release 24 hr ranolazine 500 mg tablet,extended 500 mg PO Q12H #30 tabs
--- NOTE | 2021-11-17 14:55 | PC.NURSE ---
Patient catheter removed intact. Patient taken to lobby via wheelchair to private vehicle for discharge
--- NOTE | 2021-11-18 11:07 | PC.NURSE ---
Pt states he received and understood the discharge instructions. Pt also states my care was excellent .
== END 2021-11-17 14:59 | disposition home or self-care (01) | DRG 303 ==
LOC: CHSED 06:22 → CHS2ND 06:35
PROVIDERS: Nurse Practitioner Family; Admitting Provider Internal Medicine; Emergency Provider Emergency Medicine; Visit Provider Internal Medicine
DX: I13.0 Hypertensive heart and chronic kidney disease with heart failure and stage 1 through stage 4 chronic kidney disease, or unspecified chronic kidney disease (principal); I50.9 Heart failure, unspecified; I25.10 Atherosclerotic heart disease of native coronary artery without angina pectoris; I73.9 Peripheral vascular disease, unspecified; I25.2 Old myocardial infarction; N18.9 Chronic kidney disease, unspecified; E11.22 Type 2 diabetes mellitus with diabetic chronic kidney disease; Z87.11 Personal history of peptic ulcer disease; Z20.822 Contact with and (suspected) exposure to COVID-19; Z95.1 Presence of aortocoronary bypass graft; Z79.82 Long term (current) use of aspirin; Z89.029 Acquired absence of unspecified finger(s); Z87.891 Personal history of nicotine dependence; Z79.4 Long term (current) use of insulin; Z95.5 Presence of coronary angioplasty implant and graft; I25.119 Atherosclerotic heart disease of native coronary artery with unspecified angina pectoris; R79.1 Abnormal coagulation profile; Z86.73 Personal history of transient ischemic attack (TIA), and cerebral infarction without residual deficits; Z99.81 Dependence on supplemental oxygen
CPT/HCPCS: 36415; 71045; 78580; 80048; 80053; 82948; 83690; 83880; 84484; 85025; 85027; 85380; 85610; 85730; 93005; 97161; 97165; 97535; 99285; A9270; A9540; C9803; J1815; J1940; U0003; U0005

== ENCOUNTER 2021-11-18 18:03 | Observation (INO) | payer MEDICARE, MEDICAID, SELFPAY ==
[2021-11-18] VITALS (7 sets, daily range): BP systolic 115–169; BP diastolic 54–74; PULSE 59–64; RESP 16–19; TEMP 36.5–36.8; O2SAT 93–100; BMI 27.7
--- NOTE | ~2021-11-18 | XR_ITS ---
EXAMINATION: XR chest 1V portable Exam Date/Time: 11/18/2021 20:20 CDT HISTORY: shortness of breath Comparison: 11/16/2021. RESULT: Lines, tubes, and devices: Left chest pacer with intact leads. Intact sternotomy wires. Surgical cli ps project over the lower neck and upper mediastinum. Cardiac valve replacement. Coronary artery sten t. Lungs and pleura: Mild peripheral reticular opacities, with bibasilar scar/atelectasis and left cost ophrenic angle blunting. Cardiomediastinal silhouette: Stable. Other: No acute osseous or upper abdominal finding. IMPRESSION: Mild interstitial edema. Small left pleural effusion. Bibasilar atelectasis/scar. Reviewed, dictated and finalized at location K. IMPRESSION: Mild interstitial edema. Small left pleural effusion. Bibasilar atelectasis/sca r.
--- NOTE | 2021-11-18 18:36 | ED.GENADULT ---
HPI - General Adult General Chief complaint: Unspecified Stated complaint: lung issues Time Seen by Provider: 11/18/21 18:10 Source: patient History of Present Illness HPI narrative: 71-year-old male with a history of hypertension, diabetes mellitus, CAD status post CABG status post stenting of the vein graft, ppm, AVR, CHF, ex-smoker on home oxygen 6 liters/minute, CKD with a creatinine of 1.9, CVA with multiple strokes, peripheral vascular disease awaiting a right leg bypass surgery, peptic ulcer disease with GI bleeding in 2006 and 2009 presented to the ER on 11/16/2021 for chest pain. The patient had a paced rhythm and had negative troponins. The patient had an elevated D-dimer and went on to have a perfusion scan which was indeterminate. The patient was discharged home Without any resolution of his indeterminate perfusion scan. The patient was scheduled to have a bypass surgery today but this was canceled in view of the possibility of a pulmonary embolism. The patient returns to the ER for clarification Of his indeterminate perfusion scan. The patient does not have any chest pain after discharge. The patient has chronic shortness of breath and is on 6 liters/minute oxygen without any recent worsening. He has -- chronic shortness of breath and is on 6 liters/minute FiO2. -- Had unprovoked chest pain 2 days ago and 3 days ago which resolved spontaneously. -- He has right lower extremity claudication /wrist pain. Onset (ago): week(s) Related Data Home Medications Medication Instructions Recorded Confirmed insulin aspart U-100 100 unit/mL See Rx Instructions .Route .COMPLEX 03/27/19 11/18/21 (3 mL) subcutaneous pen (Novolog Flexpen U-100 Insulin aspart) Adult Low Dose Aspirin 81 mg PO DAILY 08/05/20 11/18/21 cholecalciferol (vitamin D3) 1,000 unit PO DAILY 08/05/20 11/18/21 pantoprazole 40 mg tablet,delayed 40 mg PO BID 08/05/20 11/18/21 release gabapentin 300 mg capsule 300 mg PO BID 09/03/20 11/18/21 atorvastatin 40 mg tablet 40 mg PO HS 06/10/21 11/18/21 bumetanide 1 mg tablet 1 mg PO BID 06/10/21 11/18/21 carvedilol 25 mg PO BID 06/10/21 11/18/21 dulaglutide 4.5 mg/0.5 mL 4.5 mg subcut WEEKLY 11/16/21 11/18/21 subcutaneous pen injector ([facility]) metolazone 2.5 mg tablet 2.5 mg PO WEEKLY 11/16/21 11/18/21 Allergies Allergy/AdvReac Type Severity Reaction Status Date / Time amoxicillin [From Augmentin] Allergy Rash Verified 11/18/21 18:21 clavulanic acid Allergy Rash Verified 11/18/21 18:21 [From Augmentin] metformin Allergy Other Verified 11/18/21 18:21 Review of Systems Review of Systems: All systems reviewed & are unremarkable except as noted in HPI and below Constitutional: Constitutional: Reports as per HPI and Reports no additional constitutional complaints Eyes: Eyes: Reports as per HPI and Reports no additional eye complaints ENT: Reports system reviewed and no additional complaints, except as documented and Reports as per HPI Cardiovascular: Cardiovascular: Reports as per HPI, Reports no additional cardiovascular complaints and Reports chest pain Comments: Had chest pain 3 days ago which has resolved. Respiratory: Respiratory: Reports as per HPI, Reports no additional respiratory complaints and Reports dyspnea Comments: Chronic shortness of breath Gastrointestinal: Gastrointestinal: Reports as per HPI and Reports no additional gastrointestinal complaints Comments: no nausea/ vomiting /abdominal pain / diarrhea. No history of recent black stools. Genitourinary: Genitourinary: Reports no additional male genitourinary complaints Musculoskeletal: Musculoskeletal: Reports no additional musculoskeletal complaints and Reports as per HPI Comments: Amputation of 3 toes of the right foot. Integumentary/Breasts: Skin/Breast: Reports system reviewed and no additional complaints, except as docu and Reports as per HPI Neurologic: Reports system reviewed and no additio
[2021-11-18 18:56] LABS: Basophils Absolute Auto 0.05 K/mm3 (0.00-0.10); Basophils Percent Auto 0.8 % (0.0-1.0); Eosinophils Absolute Auto 0.48 K/mm3 (0.02-0.50); Eosinophils Percent Auto 8.1 % (1.0-6.0); Hemoglobin 8.5 g/dL (12.4-15.3); Immature Granulocyte Absolute 0.01 K/mm3 (0.00-0.00); Immature Granulocyte Percent A 0.2 % (0.0-0.0); Lymphocytes Percent Auto 8.4 % (18.0-42.0); Mean Corpuscular HGB Conc 31.5 g/dL (32.0-36.0); Mean Corpuscular Hemoglobin 26.2 pg (27.0-31.0); Mean Corpuscular Volume 83.3 fL (78.0-102.0); Mean Platelet Volume 9.1 fl (8.7-11.0); Monocytes Absolute Auto 0.65 K/mm3 (0.10-0.90); Monocytes Percent Auto 10.9 % (2.0-11.0); Neutrophils Absolute Auto 4.3 K/mm3 (1.7-7.2); Neutrophils Percent Auto 71.6 % (50.0-70.0); Platelet Count Result 285 K/mm3 (150-420); Red Blood Count 3.24 M/mm3 (4.70-6.10); Red Cell Distribution Width 22.7 % (11.6-14.4)
--- NOTE | 2021-11-18 18:56 | ECG_ITS ---
Measurements Intervals [place] Rate: 60 P: 180 [place]: 247 QRS: -70 QRSD: 156 T: 93 QT: 515 QTc: 515 Interpretive Statements ELECTRONIC ATRIAL PACEMAKER ELECTRONIC VENTRICULAR PACEMAKER NO FURTHER INTERPRETATION POSSIBLE COMPARED TO ECG 11/16/2021 04:52:53 NO SIGNIFICANT CHANGES Electronically Signed On 11-19-2021 15:55:57 CDT by Abdirahman Kaufman M.D.
[2021-11-18] MEDS: SODIUM CHLORIDE 0.9% IV 500 ML 999 ML IV CONT (18:57)
[2021-11-18 19:17] LABS: Anion Gap 6 mmol/L (8-16); Blood Urea Nitrogen 50 mg/dL (7-18); Calcium 9.2 mg/dL (8.5-10.1); Carbon Dioxide 32 mmol/L (21-32); Chloride 94 mmol/L (98-108); Estimated CRCL calculation 29 ml/min; Estimated Glomerular Filt Rate 29; Glucose 231 mg/dL (70-99); Osmolality Calculated 294 mOsm/kg (285-295); Potassium 4.3 mmol/L (3.5-5.1); Sodium 132 mmol/L (136-145)
[2021-11-18 19:19] LABS: Troponin I 32.8 ng/L (0.00-60.4)
[2021-11-18] MEDS: SODIUM CHLORIDE 0.9% IV 1,000 ML 100 ML IV CONT (21:11)
--- NOTE | 2021-11-18 21:49 | ADMGEN ---
This patient, Justin Peguero, was admitted to 2nd Floor Room 205-1. Patient oriented to hospital policies and general routines including ID bracelet, bed and alarms, visiting hours, pain management, procedures, bathroom and other care routines, personal items, smoking policy, room service/diet, and visiting hours. Information on how to activate the Rapid Response Team has been discussed. Patient are encouraged to report perceived risks to care and to ask questions if they do not understand what they are told or what they should do.
[2021-11-18 22:18] LABS: Glucose Point of Care 234 mg/dl (65-105)
[2021-11-18] MEDS: ATORVASTATIN 40 MG TABLET PO (22:20)
[2021-11-18] MEDS: RANOLAZINE 500 MG TAB.ER.12H PO (22:20)
[2021-11-18] MEDS: HEPARIN SODIUM 5,000 UNITS/ML VIAL 5000 UNITS SUB-Q (22:21)
[2021-11-19 04:00] VITALS: BP 120/57; PULSE 66; RESP 15; TEMP 36.6; O2SAT 94
[2021-11-19 05:07] LABS: Hematocrit 28.3 % (37.0-46.0); Hemoglobin 8.9 g/dL (12.4-15.3); Mean Corpuscular HGB Conc 31.4 g/dL (32.0-36.0); Mean Corpuscular Hemoglobin 26.5 pg (27.0-31.0); Mean Corpuscular Volume 84.2 fL (78.0-102.0); Mean Platelet Volume 9.2 fl (8.7-11.0); Platelet Count Result 291 K/mm3 (150-420); Red Blood Count 3.36 M/mm3 (4.70-6.10); Red Cell Distribution Width 22.9 % (11.6-14.4)
[2021-11-19 05:16] LABS: Anion Gap 7 mmol/L (8-16); Blood Urea Nitrogen 47 mg/dL (7-18); Calcium 9.1 mg/dL (8.5-10.1); Carbon Dioxide 29 mmol/L (21-32); Chloride 97 mmol/L (98-108); Estimated CRCL calculation 32 ml/min; Estimated Glomerular Filt Rate 33; Glucose 183 mg/dL (70-99); Osmolality Calculated 293 mOsm/kg (285-295); Sodium 133 mmol/L (136-145)
[2021-11-19 05:27] LABS: Band Neutrophils Percent 0 % (0-6); Basophils Percent Manual 2 % (0-1); Eosinophils Percent Manual 10 % (1-6); Lymphocytes Absolute Manual 0.75 K/mm3 (1.1-4.5); Lymphocytes Percent Manual 15 % (18-44); Monocytes Absolute Manual 0.45 K/mm3 (0.1-0.90); Monocytes Percent Manual 9 % (3-9); Neutrophils Percent Manual 64 % (46-73); Platelet Estimate Adequate (Adequate); Total Cells Counted 100
--- NOTE | 2021-11-19 07:27 | PM.SD2 ---
Same Day Admit/Disch: HPI History of Present Illness Chief complaint: CHEST PAIN SOB Narrative: Justin Peguero is a 71 year old male that presented to the emergency department on 11/16/2021 due to chest pain. Patient was found to have a PE. Apparently patient had a procedure on 11/17 refused to be placed on any type of blood thinner per previous hospital notes. Patient was discharged without any anticoagulant but his procedure was canceled due to his diagnosis of a PE. Apparently patient refused to be prescribed anticoagulant,patient denies this. Patient noted that he will call his primary care physician. His primary care physician referred him back to our emergency department so that some anticoagulant can be prescribed. Patient will be prescribed anticoagulant today and discharged. The patient denies SOB, CP, palpitation, extremity numbness, lightheadedness, dizziness, constipation, diarrhea, chills, or fever. Discharge instructions reviewed with patient, as well as provided in writing per nursing staff. The instructions also include specific and strict return/GO TO THE ER as well as f/u information. All questions have been answered, and the patient and/or family deny any further questions with discharge and discharge plan. 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 Surgical History Surgical History H/O left inguinal hernia repair H/O parathyroidectomy History of aortic valve repair History of coronary artery stent placement S/P CABG x 6 Family History Family History Mother Hypertension Father Heart disease Mitral valve replaced Sibling Heart disease Sibling Heart disease Sibling Heart disease Sibling Heart disease Social History Social History Smoking packs per day: 0.25 Smoking cigarettes per day: 5.0 Smoking status: Former smoker Tobacco type: cigars Second hand tobacco smoke exposure: Yes Smoking end date: 03/29/75 Additional smoking assessment comments: STOPPED SMOKING 1975 Alcohol intake: former Drinks per week: 30 Alcohol use details: rarely drinks alcohol Substance use: never Substance use type: marijuana Last use: 1959 Gender identity (if verbalized by the patient): Male Spiritual care concerns: No Same Day Admit/Disch: Med Pre-admit Medications Home Medications Medication Instructions Recorded Confirmed Type insulin aspart U-100 100 unit/mL See Rx Instructions .Route .COMPLEX 03/27/19 11/18/21 History (3 mL) subcutaneous pen (Novolog Flexpen U-100 Insulin aspart) Adult Low Dose Aspirin 81 mg PO DAILY 08/05/20 11/18/21 History cholecalciferol (vitamin D3) 1,000 unit PO DAILY 08/05/20 11/18/21 History pantoprazole 40 mg tablet,delayed 40 mg PO BID 08/05/20 11/18/21 History release nitroglycerin 0.4 mg sublingual 0.4 mg sublingual DIRECTED #30 08/17/20 11/18/21 Rx tablet tabs gabapentin 300 mg capsule 300 mg PO BID 09/03/20 11/18/21 History clonidine HCl 0.2 mg tablet 0.3 mg PO BID #0 tabs 01/20/21 11/18/21 Rx famotidine 20 mg tablet 20 mg PO DAILY #30 tabs 01/20/21 11/18/21 Rx isosorbide mononitrate 30 mg 60 mg PO DAILY #0 tabs 01/20/21 11/18/21 Rx tablet,extended release 24 hr ranolazine 500 mg tablet,extended 500 mg PO Q12H #30 tabs 01/20/21 11/18/21 Rx release,12 hr atorvastatin 40 mg tablet 40 mg PO HS 06/10/21 11/18/21 History bumetanide 1 mg tablet 1 mg PO BID 06/10/21 11/18/21 History carvedilol 25 mg PO BID 06/10/21 11/18/21 History
[2021-11-19 07:44] LABS: Glucose Point of Care 213 mg/dl (65-105)
[2021-11-19 08:00] VITALS: BP 156/61; PULSE 62; RESP 16; TEMP 36.8; O2SAT 94
[2021-11-19] MEDS: cloNIDine HCL 0.1 MG TABLET 0.3 MG PO (08:52)
[2021-11-19] MEDS: CHOLECALCIFEROL 1,000 UNITS TABLET 1000 UNITS PO (08:52)
[2021-11-19] MEDS: FAMOTIDINE 20 MG TABLET PO (08:53)
[2021-11-19] MEDS: PANTOPRAZOLE 40 MG TABLET PO (08:53)
[2021-11-19] MEDS: ASPIRIN 81 MG ENTERIC TABLET PO (08:53)
[2021-11-19] MEDS: ISOSORBIDE MONONITRATE 60 MG TAB.ER.24H PO (08:53)
[2021-11-19 08:54] VITALS: PULSE 65
[2021-11-19] MEDS: GABAPENTIN 300 MG CAPSULE PO (08:54)
[2021-11-19] MEDS: carvediloL 12.5 MG TABLET 25 MG PO (08:54)
[2021-11-19 10:30] VITALS: O2SAT 100
--- NOTE | 2021-11-20 11:46 | PC.NURSE ---
Pt states he received and understood his discharge instructions. Pt has no other comments.
== END 2021-11-19 10:30 | disposition home or self-care (01) ==
LOC: CHSED 20:20 → CHS2ND 21:07
PROVIDERS: Admitting Provider Internal Medicine; Emergency Provider Internal Medicine Critical Care Medicine; Visit Provider Internal Medicine
DX: I26.99 Other pulmonary embolism without acute cor pulmonale (principal); I13.0 Hypertensive heart and chronic kidney disease with heart failure and stage 1 through stage 4 chronic kidney disease, or unspecified chronic kidney disease; I50.9 Heart failure, unspecified; N18.4 Chronic kidney disease, stage 4 (severe); E11.22 Type 2 diabetes mellitus with diabetic chronic kidney disease; I25.10 Atherosclerotic heart disease of native coronary artery without angina pectoris; E11.51 Type 2 diabetes mellitus with diabetic peripheral angiopathy without gangrene; K27.9 Peptic ulcer, site unspecified, unspecified as acute or chronic, without hemorrhage or perforation; Z99.81 Dependence on supplemental oxygen; Z79.4 Long term (current) use of insulin; Z79.82 Long term (current) use of aspirin; Z86.73 Personal history of transient ischemic attack (TIA), and cerebral infarction without residual deficits; Z95.5 Presence of coronary angioplasty implant and graft; Z95.0 Presence of cardiac pacemaker; Z95.1 Presence of aortocoronary bypass graft; Z89.029 Acquired absence of unspecified finger(s); Z89.421 Acquired absence of other right toe(s); Z87.891 Personal history of nicotine dependence
CPT/HCPCS: 36415; 71045; 80048; 82948; 84484; 85025; 93005; 96360; 96361; 96372; 99285; A9270; G0378; J1644; J1815; J7030; J7040